=== PATIENT | male | born 1940 | race Caucasian/White ===

== ENCOUNTER 2016-11-09 13:08 | Outpatient (CLI) | payer MEDICARE, OTHER | END 2016-11-09 13:09 | disposition home or self-care (01) | DX: I48.0 Paroxysmal atrial fibrillation (principal) ==

== ENCOUNTER 2016-12-07 09:54 | Outpatient (CLI) | payer MEDICARE, OTHER | END 2016-12-07 09:55 | disposition home or self-care (01) | DX: I48.0 Paroxysmal atrial fibrillation (principal) ==

== ENCOUNTER 2017-01-05 12:34 | Outpatient (CLI) | payer MEDICARE, OTHER | END 2017-01-05 12:35 | disposition home or self-care (01) | DX: I48.0 Paroxysmal atrial fibrillation (principal) ==

== ENCOUNTER 2017-02-02 11:24 | Outpatient (CLI) | payer MEDICARE, OTHER | END 2017-02-02 11:25 | disposition home or self-care (01) | DX: I48.0 Paroxysmal atrial fibrillation (principal) ==

== ENCOUNTER 2017-02-16 12:38 | Outpatient (CLI) | payer MEDICARE, OTHER | END 2017-02-16 12:39 | disposition home or self-care (01) | DX: I48.0 Paroxysmal atrial fibrillation (principal) ==

== ENCOUNTER 2017-03-16 12:44 | Outpatient (CLI) | payer MEDICARE, OTHER | END 2017-03-16 12:45 | disposition home or self-care (01) | LOC: LAB.F 12:44 | PROVIDERS: ATTEND Internal Medicine | DX: I48.0 Paroxysmal atrial fibrillation (principal) | CPT/HCPCS: 85610 ==

== ENCOUNTER 2017-03-25 10:45 | Outpatient (CLI) | payer MEDICARE, OTHER | END 2017-03-25 10:46 | disposition home or self-care (01) | LOC: LAB.F 10:45 | PROVIDERS: ATTEND Internal Medicine | DX: I48.0 Paroxysmal atrial fibrillation (principal) | CPT/HCPCS: 85610 ==

== ENCOUNTER 2017-04-01 14:11 | Outpatient (CLI) | payer MEDICARE, OTHER | END 2017-04-01 14:12 | disposition home or self-care (01) | LOC: LAB.F 14:11 | PROVIDERS: ATTEND Internal Medicine | DX: I48.0 Paroxysmal atrial fibrillation (principal) | CPT/HCPCS: 85610 ==

== ENCOUNTER 2017-04-15 12:54 | Outpatient (CLI) | payer MEDICARE, OTHER | END 2017-04-15 12:55 | disposition home or self-care (01) | LOC: LAB.F 12:54 | PROVIDERS: ATTEND Internal Medicine | DX: I48.0 Paroxysmal atrial fibrillation (principal) | CPT/HCPCS: 85610 ==

== ENCOUNTER 2017-05-06 12:35 | Outpatient (CLI) | payer MEDICARE, OTHER | END 2017-05-06 12:36 | disposition home or self-care (01) | LOC: LAB.F 12:35 | PROVIDERS: ATTEND Internal Medicine | DX: I48.0 Paroxysmal atrial fibrillation (principal) | CPT/HCPCS: 85610 ==

== ENCOUNTER 2017-06-06 11:22 | Outpatient (CLI) | payer MEDICARE, OTHER | END 2017-06-06 11:23 | disposition home or self-care (01) | LOC: LAB.F 11:22 | PROVIDERS: ATTEND Internal Medicine | DX: I48.0 Paroxysmal atrial fibrillation (principal) | CPT/HCPCS: 85610 ==

== ENCOUNTER 2017-07-05 14:17 | Outpatient (CLI) | payer MEDICARE, OTHER | END 2017-07-05 14:18 | disposition home or self-care (01) | LOC: LAB.F 14:17 | PROVIDERS: ATTEND Internal Medicine | DX: I48.0 Paroxysmal atrial fibrillation (principal) | CPT/HCPCS: 85610 ==

== ENCOUNTER 2017-08-02 15:01 | Outpatient (CLI) | payer MEDICARE, OTHER | END 2017-08-02 15:02 | disposition home or self-care (01) | LOC: LAB.F 15:01 | PROVIDERS: ATTEND Internal Medicine | DX: I48.0 Paroxysmal atrial fibrillation (principal) | CPT/HCPCS: 85610 ==

== ENCOUNTER 2017-09-01 12:56 | Outpatient (CLI) | payer MEDICARE, OTHER | END 2017-09-01 12:57 | disposition home or self-care (01) | LOC: LAB.F 12:56 | PROVIDERS: ATTEND Internal Medicine | DX: I48.0 Paroxysmal atrial fibrillation (principal) | CPT/HCPCS: 85610 ==

== ENCOUNTER 2017-09-20 13:05 | Outpatient (CLI) | payer MEDICARE, OTHER ==
[2017-09-20 17:39] LABS: CALCIUM 9.5 mg/dL (8.5-10.3); CREATININE 1.3 mg/dL (0.6-1.2); POTASSIUM 4.5 mmol/L (3.5-5.0)
== END 2017-09-20 13:06 | disposition home or self-care (01) ==
LOC: LAB.F 13:05
PROVIDERS: ATTEND Internal Medicine Cardiovascular Disease
DX: I50.32 Chronic diastolic (congestive) heart failure (principal)
CPT/HCPCS: 36415; 80048

== ENCOUNTER 2017-10-05 14:08 | Outpatient (CLI) | payer MEDICARE, OTHER | END 2017-10-05 14:09 | disposition home or self-care (01) | LOC: LAB.F 14:08 | PROVIDERS: ATTEND Internal Medicine | DX: I48.0 Paroxysmal atrial fibrillation (principal) | CPT/HCPCS: 85610 ==

== ENCOUNTER 2017-11-09 12:53 | Outpatient (CLI) | payer MEDICARE, OTHER | END 2017-11-09 12:54 | disposition home or self-care (01) | LOC: LAB.F 12:53 | PROVIDERS: ATTEND Internal Medicine | DX: I48.0 Paroxysmal atrial fibrillation (principal) | CPT/HCPCS: 85610 ==

== ENCOUNTER 2017-12-13 15:44 | Outpatient (CLI) | payer MEDICARE, OTHER | END 2017-12-13 15:45 | disposition home or self-care (01) | LOC: LAB.F 15:44 | PROVIDERS: ATTEND Internal Medicine | DX: I48.0 Paroxysmal atrial fibrillation (principal) | CPT/HCPCS: 85610 ==

== ENCOUNTER 2018-01-23 10:00 | Outpatient (CLI) | payer MEDICARE, OTHER | END 2018-01-23 10:01 | disposition home or self-care (01) | LOC: LAB.F 10:00 | PROVIDERS: ATTEND Internal Medicine | DX: I48.0 Paroxysmal atrial fibrillation (principal) | CPT/HCPCS: 85610 ==

== ENCOUNTER 2018-03-06 13:47 | Outpatient (CLI) | payer MEDICARE, OTHER | END 2018-03-06 13:48 | disposition home or self-care (01) | LOC: LAB.F 13:47 | PROVIDERS: ATTEND Internal Medicine | DX: Z51.81 Encounter for therapeutic drug level monitoring (principal); Z79.01 Long term (current) use of anticoagulants | CPT/HCPCS: 85610 ==

== ENCOUNTER 2018-04-18 14:18 | Outpatient (CLI) | payer MEDICARE, OTHER | END 2018-04-18 14:19 | disposition home or self-care (01) | LOC: LAB.F 14:18 | PROVIDERS: ATTEND Internal Medicine | DX: Z51.81 Encounter for therapeutic drug level monitoring (principal); Z79.01 Long term (current) use of anticoagulants | CPT/HCPCS: 85610 ==

== ENCOUNTER 2018-05-10 13:50 | Outpatient (CLI) | payer MEDICARE, OTHER | END 2018-05-10 13:51 | disposition home or self-care (01) | LOC: LAB.F 13:50 | PROVIDERS: ATTEND Internal Medicine | DX: Z51.81 Encounter for therapeutic drug level monitoring (principal); Z79.01 Long term (current) use of anticoagulants | CPT/HCPCS: 85610 ==

== ENCOUNTER 2018-05-24 14:26 | Outpatient (CLI) | payer MEDICARE, OTHER | END 2018-05-24 14:27 | disposition home or self-care (01) | LOC: LAB.F 14:26 | PROVIDERS: ATTEND Internal Medicine | DX: Z51.81 Encounter for therapeutic drug level monitoring (principal); Z79.01 Long term (current) use of anticoagulants | CPT/HCPCS: 85610 ==

== ENCOUNTER 2018-06-14 13:57 | Outpatient (CLI) | payer MEDICARE, OTHER | END 2018-06-14 13:58 | disposition home or self-care (01) | LOC: LAB.F 13:57 | PROVIDERS: ATTEND Internal Medicine | DX: Z51.81 Encounter for therapeutic drug level monitoring (principal); Z79.01 Long term (current) use of anticoagulants | CPT/HCPCS: 85610 ==

== ENCOUNTER 2018-07-17 15:32 | Outpatient (CLI) | payer MEDICARE, OTHER | END 2018-07-17 15:33 | disposition home or self-care (01) | LOC: LAB.F 15:32 | PROVIDERS: ATTEND Internal Medicine | DX: Z51.81 Encounter for therapeutic drug level monitoring (principal); Z79.01 Long term (current) use of anticoagulants | CPT/HCPCS: 85610 ==

== ENCOUNTER 2018-08-01 13:47 | Outpatient (CLI) | payer MEDICARE, OTHER | END 2018-08-01 13:48 | disposition home or self-care (01) | LOC: LAB.F 13:47 | PROVIDERS: ATTEND Internal Medicine | DX: Z51.81 Encounter for therapeutic drug level monitoring (principal); Z79.01 Long term (current) use of anticoagulants | CPT/HCPCS: 85610 ==

== ENCOUNTER 2018-08-15 13:27 | Outpatient (CLI) | payer MEDICARE, OTHER | END 2018-08-15 13:28 | disposition home or self-care (01) | LOC: LAB.F 13:27 | PROVIDERS: ATTEND Internal Medicine | DX: Z51.81 Encounter for therapeutic drug level monitoring (principal); Z79.01 Long term (current) use of anticoagulants | CPT/HCPCS: 85610 ==

== ENCOUNTER 2018-09-14 13:26 | Outpatient (CLI) | payer MEDICARE, OTHER | END 2018-09-14 13:27 | disposition home or self-care (01) | LOC: LAB.F 13:26 | PROVIDERS: ATTEND Internal Medicine | DX: Z51.81 Encounter for therapeutic drug level monitoring (principal); Z79.01 Long term (current) use of anticoagulants | CPT/HCPCS: 85610 ==

== ENCOUNTER 2018-10-03 14:18 | Outpatient (CLI) | payer MEDICARE, OTHER | END 2018-10-03 14:19 | disposition home or self-care (01) | LOC: LAB.F 14:18 | PROVIDERS: ATTEND Internal Medicine | DX: Z51.81 Encounter for therapeutic drug level monitoring (principal); Z79.01 Long term (current) use of anticoagulants | CPT/HCPCS: 85610 ==

== ENCOUNTER 2018-10-31 08:00 | Outpatient (CLI) | payer MEDICARE, OTHER ==
[2018-10-31 17:34] LABS: BUN - BLOOD UREA NITROGEN 32 mg/dL (6-20); CARBON DIOXIDE - CO2 26 mmol/L (21-32); CHLORIDE 93 mmol/L (101-111); CREATININE 1.1 mg/dL (0.6-1.2); GFR - MDRD 64 (>89); GLUCOSE 144 mg/dL (70-100); SODIUM 132 mmol/L (135-145)
[2018-10-31 17:36] LABS: DIGOXIN < 0.2 ng/mL
== END 2018-10-31 23:59 | disposition home or self-care (01) ==
LOC: LAB.F 08:00
PROVIDERS: ATTEND Internal Medicine
DX: Z79.01 Long term (current) use of anticoagulants (principal); I50.32 Chronic diastolic (congestive) heart failure; Z51.81 Encounter for therapeutic drug level monitoring; I42.5 Other restrictive cardiomyopathy
CPT/HCPCS: 36415; 80048; 80162; 83880; 85610

== ENCOUNTER 2018-11-08 14:13 | Outpatient (CLI) | payer MEDICARE, OTHER | END 2018-11-08 14:14 | disposition home or self-care (01) | LOC: LAB.F 14:13 | PROVIDERS: ATTEND Internal Medicine | DX: Z51.81 Encounter for therapeutic drug level monitoring (principal); Z79.01 Long term (current) use of anticoagulants | CPT/HCPCS: 85610 ==

== ENCOUNTER 2018-11-15 15:04 | Outpatient (CLI) | payer MEDICARE, OTHER | END 2018-11-15 15:05 | disposition home or self-care (01) | LOC: LAB.F 15:04 | PROVIDERS: ATTEND Internal Medicine | DX: Z51.81 Encounter for therapeutic drug level monitoring (principal); Z79.01 Long term (current) use of anticoagulants | CPT/HCPCS: 85610 ==

== ENCOUNTER 2018-12-04 13:32 | Outpatient (CLI) | payer MEDICARE, OTHER | END 2018-12-04 13:33 | disposition home or self-care (01) | LOC: LAB.F 13:32 | PROVIDERS: ATTEND Internal Medicine | DX: Z51.81 Encounter for therapeutic drug level monitoring (principal); Z79.01 Long term (current) use of anticoagulants | CPT/HCPCS: 85610 ==

== ENCOUNTER 2018-12-27 14:05 | Outpatient (CLI) | payer MEDICARE, OTHER | END 2018-12-27 14:06 | disposition home or self-care (01) | LOC: LAB.F 14:05 | PROVIDERS: ATTEND Internal Medicine | DX: Z51.81 Encounter for therapeutic drug level monitoring (principal); Z79.01 Long term (current) use of anticoagulants | CPT/HCPCS: 85610 ==

== ENCOUNTER 2018-12-30 17:38 | Outpatient (CLI) | payer MEDICARE, OTHER | END 2018-12-30 17:39 | disposition EMS.NT | LOC: EMS 17:38 | PROVIDERS: ATTEND Surgery | DX: Z03.89 Encounter for observation for other suspected diseases and conditions ruled out (principal) ==

== ENCOUNTER 2019-01-17 15:13 | Outpatient (CLI) | payer MEDICARE, OTHER ==
[2019-01-17 18:25] LABS: PT - PROTHROMBIN TIME 53.6 secs (9.9-12.6)
[2019-01-17 19:41] LABS: INR 4.8 (0.8-1.2)
== END 2019-01-17 15:14 | disposition home or self-care (01) ==
LOC: LAB.F 15:13
PROVIDERS: ATTEND Internal Medicine
DX: Z51.81 Encounter for therapeutic drug level monitoring (principal); Z79.01 Long term (current) use of anticoagulants
CPT/HCPCS: 36415; 85610

== ENCOUNTER 2019-01-23 13:34 | Outpatient (CLI) | payer MEDICARE, OTHER ==
[2019-01-23 18:00] LABS: INR 2.2 (0.8-1.2); PT - PROTHROMBIN TIME 24.2 secs (9.9-12.6)
== END 2019-01-23 13:35 | disposition home or self-care (01) ==
LOC: LAB.F 13:34
PROVIDERS: ATTEND Internal Medicine
DX: Z51.81 Encounter for therapeutic drug level monitoring (principal); Z79.01 Long term (current) use of anticoagulants
CPT/HCPCS: 36415; 85610

== ENCOUNTER 2019-02-01 13:56 | Outpatient (CLI) | payer MEDICARE, OTHER | END 2019-02-01 13:57 | disposition home or self-care (01) | LOC: LAB.F 13:56 | PROVIDERS: ATTEND Internal Medicine | DX: Z51.81 Encounter for therapeutic drug level monitoring (principal); Z79.01 Long term (current) use of anticoagulants | CPT/HCPCS: 85610 ==

== ENCOUNTER 2019-02-08 14:14 | Outpatient (CLI) | payer MEDICARE, OTHER | END 2019-02-08 14:15 | disposition home or self-care (01) | LOC: LAB.F 14:14 | PROVIDERS: ATTEND Internal Medicine | DX: Z51.81 Encounter for therapeutic drug level monitoring (principal); Z79.01 Long term (current) use of anticoagulants | CPT/HCPCS: 85610 ==

== ENCOUNTER 2019-03-07 13:38 | Outpatient (CLI) | payer MEDICARE, OTHER ==
[2019-03-07 15:07] LABS: CALCIUM 9.6 mg/dL (8.5-10.3); CREATININE 1.1 mg/dL (0.6-1.2)
== END 2019-03-07 13:39 | disposition home or self-care (01) ==
LOC: LAB 13:38
PROVIDERS: ATTEND Internal Medicine Cardiovascular Disease
DX: I48.0 Paroxysmal atrial fibrillation (principal)
CPT/HCPCS: 36415; 80048; 93005

== ENCOUNTER 2019-03-15 14:37 | Outpatient (CLI) | payer MEDICARE, OTHER | END 2019-03-15 14:38 | disposition home or self-care (01) | LOC: LAB.F 14:37 | PROVIDERS: ATTEND Internal Medicine | DX: Z51.81 Encounter for therapeutic drug level monitoring (principal); Z79.01 Long term (current) use of anticoagulants | CPT/HCPCS: 85610 ==

== ENCOUNTER 2019-04-05 08:00 | Outpatient (CLI) | payer MEDICARE, OTHER | END 2019-04-05 23:59 | disposition home or self-care (01) | LOC: LAB.F 08:00 | PROVIDERS: ATTEND Internal Medicine | DX: Z51.81 Encounter for therapeutic drug level monitoring (principal); Z79.01 Long term (current) use of anticoagulants | CPT/HCPCS: 85610 ==

== ENCOUNTER 2019-04-30 13:38 | Outpatient (CLI) | payer MEDICARE, OTHER | END 2019-04-30 13:39 | disposition home or self-care (01) | LOC: LAB.S 13:38 | PROVIDERS: ATTEND Internal Medicine | DX: Z51.81 Encounter for therapeutic drug level monitoring (principal); Z79.01 Long term (current) use of anticoagulants | CPT/HCPCS: 85610 ==

== ENCOUNTER 2019-05-28 13:11 | Outpatient (CLI) | payer MEDICARE, OTHER | END 2019-05-28 13:12 | disposition home or self-care (01) | LOC: LAB.S 13:11 | PROVIDERS: ATTEND Internal Medicine | DX: Z51.81 Encounter for therapeutic drug level monitoring (principal); Z79.01 Long term (current) use of anticoagulants | CPT/HCPCS: 85610 ==

== ENCOUNTER 2019-06-25 08:00 | Outpatient (CLI) | payer MEDICARE, OTHER | END 2019-06-25 23:58 | disposition home or self-care (01) | LOC: LAB.S 08:00 | PROVIDERS: ATTEND Internal Medicine | DX: Z51.81 Encounter for therapeutic drug level monitoring (principal); Z79.01 Long term (current) use of anticoagulants | CPT/HCPCS: 85610 ==

== ENCOUNTER 2019-07-24 14:25 | Outpatient (CLI) | payer MEDICARE, OTHER | END 2019-07-24 14:26 | disposition home or self-care (01) | LOC: LAB.S 14:25 | PROVIDERS: ATTEND Internal Medicine | DX: Z51.81 Encounter for therapeutic drug level monitoring (principal); Z79.01 Long term (current) use of anticoagulants | CPT/HCPCS: 85610 ==

== ENCOUNTER 2019-08-13 13:29 | Outpatient (CLI) | payer MEDICARE, OTHER | END 2019-08-13 13:30 | disposition home or self-care (01) | LOC: LAB.S 13:29 | PROVIDERS: ATTEND Internal Medicine | DX: Z51.81 Encounter for therapeutic drug level monitoring (principal); Z79.01 Long term (current) use of anticoagulants | CPT/HCPCS: 85610 ==

== ENCOUNTER 2019-09-11 13:35 | Outpatient (CLI) | payer MEDICARE, OTHER | END 2019-09-11 13:36 | disposition home or self-care (01) | LOC: LAB.S 13:35 | PROVIDERS: ATTEND Internal Medicine | DX: Z51.81 Encounter for therapeutic drug level monitoring (principal); Z79.01 Long term (current) use of anticoagulants | CPT/HCPCS: 85610 ==

== ENCOUNTER 2019-10-15 14:11 | Outpatient (CLI) | payer MEDICARE, OTHER | END 2019-10-15 14:12 | disposition home or self-care (01) | LOC: LAB.S 14:11 | PROVIDERS: ATTEND Internal Medicine | DX: Z51.81 Encounter for therapeutic drug level monitoring (principal); Z79.01 Long term (current) use of anticoagulants | CPT/HCPCS: 85610 ==

== ENCOUNTER 2019-11-12 14:18 | Outpatient (CLI) | payer MEDICARE, OTHER | END 2019-11-12 14:19 | disposition home or self-care (01) | LOC: LAB.S 14:18 | PROVIDERS: ATTEND Internal Medicine | DX: Z51.81 Encounter for therapeutic drug level monitoring (principal); Z79.01 Long term (current) use of anticoagulants | CPT/HCPCS: 85610 ==

== ENCOUNTER 2019-11-14 08:00 | Outpatient (CLI) | payer MEDICARE, OTHER ==
[2019-11-14 20:40] LABS: BASOPHILS # (AUTO) 0.1 10^3/uL (0.0-0.1); BASOPHILS % (AUTO) 0.8 %; EOSINOPHILS # (AUTO) 0.1 10^3/uL (0.0-0.7); EOSINOPHILS % (AUTO) 1.1 %; HGB - HEMOGLOBIN 13.1 g/dL (14.0-18.0); LYMPHOCYTES # (AUTO) 0.7 10^3/uL (1.5-3.5); LYMPHOCYTES % (AUTO) 10.8 %; MEAN CORPUSCULAR HEMOGLOBIN 33.6 pg (27.0-31.0); MEAN CORPUSCULAR VOLUME 101.8 fL (80.0-94.0); MEAN PLATELET VOLUME 10.9 fL (7.4-11.4); MONOCYTES # (AUTO) 0.7 10^3/uL (0.0-1.0); MONOCYTES % (AUTO) 11.1 %; NEUTROPHILS # (AUTO) 4.9 10^3/uL (1.5-6.6); NEUTROPHILS % (AUTO) 72.9 %; PLT - PLATELET COUNT 155 10^3/uL (130-450); RED CELL DISTRIBUTION WIDTH 14.2 % (12.0-15.0); WHITE BLOOD COUNT 6.7 x10^3/uL (4.8-10.8)
[2019-11-14 20:56] LABS: BUN - BLOOD UREA NITROGEN 43 mg/dL (6-20); CALCIUM 8.8 mg/dL (8.5-10.3); CARBON DIOXIDE - CO2 27 mmol/L (21-32); CHLORIDE 95 mmol/L (101-111); CREATININE 1.4 mg/dL (0.6-1.2); GFR - MDRD 49 (>89); GLUCOSE 110 mg/dL (70-100); SODIUM 134 mmol/L (135-145)
[2019-11-14 21:15] LABS: CRP - C-REACTIVE PROTEIN < 1.0 mg/dL (0-1.0)
== END 2019-11-14 23:59 | disposition home or self-care (01) ==
LOC: LAB.R 08:00
DX: M86.9 Osteomyelitis, unspecified (principal)
CPT/HCPCS: 80048; 85025; 85651; 86140

== ENCOUNTER 2019-11-22 09:33 | Outpatient (CLI) | payer MEDICARE, OTHER | END 2019-11-22 09:34 | disposition short-term general hospital (02) | LOC: EMS 09:33 | PROVIDERS: ATTEND Surgery | DX: R25.3 Fasciculation (principal); R41.0 Disorientation, unspecified; R26.81 Unsteadiness on feet | CPT/HCPCS: A0425; A0427 ==

== ENCOUNTER 2019-11-28 08:00 | Outpatient (CLI) | payer MEDICARE, OTHER ==
[2019-11-29 16:18] LABS: BUN - BLOOD UREA NITROGEN 36 mg/dL (6-20); CARBON DIOXIDE - CO2 27 mmol/L (21-32); CHLORIDE 96 mmol/L (101-111); SODIUM 137 mmol/L (135-145)
[2019-11-29 16:19] LABS: CALCIUM 9.1 mg/dL (8.5-10.3); CREATININE 1.7 mg/dL (0.6-1.2); CRP - C-REACTIVE PROTEIN < 1.0 mg/dL (0-1.0); GFR - MDRD 39 (>89); GLUCOSE 178 mg/dL (70-100); HGB - HEMOGLOBIN 13.3 g/dL (14.0-18.0); WHITE BLOOD COUNT 7.5 x10^3/uL (4.8-10.8)
[2019-11-29 16:20] LABS: BASOPHILS % (AUTO) 0.1 %; EOSINOPHILS % (AUTO) 0.1 %; LYMPHOCYTES # (AUTO) 0.5 10^3/uL (1.5-3.5); LYMPHOCYTES % (AUTO) 7.2 %; MEAN CORPUSCULAR HEMOGLOBIN 32.4 pg (27.0-31.0); MEAN CORPUSCULAR HGB CONC 33.1 g/dL (32.0-36.0); MEAN PLATELET VOLUME 11.8 fL (7.4-11.4); MONOCYTES # (AUTO) 0.3 10^3/uL (0.0-1.0); MONOCYTES % (AUTO) 3.7 %; NEUTROPHILS # (AUTO) 6.6 10^3/uL (1.5-6.6); NEUTROPHILS % (AUTO) 87.6 %; PLT - PLATELET COUNT 184 10^3/uL (130-450)
== END 2019-11-28 23:59 | disposition home or self-care (01) ==
LOC: LAB.R 08:00
PROVIDERS: ATTEND Internal Medicine Infectious Disease
DX: M86.9 Osteomyelitis, unspecified (principal)
CPT/HCPCS: 80048; 85025; 85651; 86140

== ENCOUNTER 2019-12-05 08:00 | Outpatient (CLI) | payer MEDICARE, OTHER ==
[2019-12-05 21:25] LABS: BASOPHILS % (AUTO) 0.2 %; EOSINOPHILS % (AUTO) 0.5 %; HGB - HEMOGLOBIN 12.3 g/dL (14.0-18.0); LYMPHOCYTES # (AUTO) 0.3 10^3/uL (1.5-3.5); MEAN CORPUSCULAR HGB CONC 33.8 g/dL (32.0-36.0); MEAN CORPUSCULAR VOLUME 100.6 fL (80.0-94.0); MEAN PLATELET VOLUME 11.7 fL (7.4-11.4); MONOCYTES # (AUTO) 0.3 10^3/uL (0.0-1.0); MONOCYTES % (AUTO) 5.5 %; NEUTROPHILS % (AUTO) 86.6 %; PLT - PLATELET COUNT 132 10^3/uL (130-450); RED BLOOD COUNT 3.62 10^6/uL (4.70-6.10); RED CELL DISTRIBUTION WIDTH 13.2 % (12.0-15.0); WHITE BLOOD COUNT 5.8 x10^3/uL (4.8-10.8)
[2019-12-05 21:42] LABS: CALCIUM 8.9 mg/dL (8.5-10.3); CREATININE 1.5 mg/dL (0.6-1.2); CRP - C-REACTIVE PROTEIN 9.3 mg/dL (0-1.0)
== END 2019-12-05 23:59 | disposition home or self-care (01) ==
LOC: LAB.R 08:00
PROVIDERS: ATTEND Internal Medicine Infectious Disease
DX: M86.9 Osteomyelitis, unspecified (principal)
CPT/HCPCS: 80048; 85025; 85651; 86140

== ENCOUNTER 2020-01-04 13:53 | Outpatient (CLI) | payer MEDICARE, OTHER | END 2020-01-04 13:54 | disposition home or self-care (01) | LOC: LAB.S 13:53 | PROVIDERS: ATTEND Internal Medicine | DX: Z51.81 Encounter for therapeutic drug level monitoring (principal); Z79.01 Long term (current) use of anticoagulants | CPT/HCPCS: 85610 ==

== ENCOUNTER 2020-01-10 19:06 | Emergency (ER) | payer MEDICARE, OTHER ==
--- NOTE | 2020-01-10 19:40 | ED Physician Documentation ---
History of Present Illness - Stated complaint Stated Complaint: RT LEG PX/SWELLING/REDNESS - Chief complaint Chief Complaint: Ext Problem - History obtained from History obtained from: Patient (79-year-old gentleman comes in today with chief complaint of right lower extremity swelling, and anterior redness/bruising. He does not recall hitting his leg on anything. 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 He was then placed in a long-term care facility rehab after hospital discharge, started on Lovenox subcu twice daily and then bridged over to Coumadin p.o. He has been discharged out of the long-term care facility for approximately a week now. He denies any fevers chills nausea vomiting diarrhea headache cough.) Review of Systems Constitutional: reports: Reviewed and negative Eyes: reports: Reviewed and negative Ears: reports: Reviewed and negative Nose: reports: Reviewed and negative Throat: reports: Reviewed and negative Cardiac: denies: Chest pain / pressure, Palpitations Respiratory: denies: Dyspnea, Cough, Wheezing GI: reports: Reviewed and negative : reports: Reviewed and negative Skin: reports: Other (Ecchymosis to the anterior right lower extremity) Musculoskeletal: reports: Extremity swelling (Right lower extremity). denies: Extremity pain, Joint pain PD PAST MEDICAL HISTORY - Past Medical History Past Medical History: Yes Cardiovascular: Congestive heart failure, Hypertension, Atrial fibrillation, Other Respiratory: Pneumonia Neuro: None Endocrine/Autoimmune: None GI: GERD : Nocturia HEENT: Chronic hearing loss, Other Psych: None Musculoskeletal: Osteoarthritis, Gout Derm: None - Past Surgical History Past Surgical History: Yes Ortho: Knee replacement - Present Medications Home Medications: Ambulatory Orders Medication Instructions Recorded Confirmed Potassium Chloride 80 meq PO BID 05/03/14 01/10/20 Torsemide 200 mg PO DAILY 05/03/14 01/10/20 Digoxin 62.5 mg PO DAILY 07/12/16 01/10/20 Hydrocodone/Acetaminophen [Vicodin 5 mg PO Q8HR PRN 07/12/16 01/10/20 5-300 mg Tablet] Isosorbide Mononitrate ER [Imdur] 60 mg PO DAILY 07/12/16 01/10/20 Warfarin Sodium [Coumadin] 5 mg PO QDWARFARIN 07/12/16 Clindamycin HCl [Clindamycin 300MG 300 mg PO Q6H #28 capsule 01/10/20 CAP] Colchicine 0.6 mg PO DAILY 01/10/20 01/10/20 Loperamide [Imodium] 2 mg PO PRN PRN 01/10/20 01/10/20 Sotalol [Betapace] 40 mg PO BID 01/10/20 01/10/20 Torsemide 100 mg PO DAILY 01/10/20 01/10/20 hydrALAZINE [Apresoline] 25 mg PO BID 01/10/20 01/10/20 predniSONE [Prednisone] 5 mg PO DAILY 01/10/20 01/10/20 - Allergies Allergies/Adverse Reactions: Allergies Allergy/AdvReac Type Severity Reaction Status Date / Time Sulfa (Sulfonamide Allergy Intermediate Rash Verified 01/10/20 19:24 Antibiotics) cefepime AdvReac Unknown Verified 01/10/20 19:33 lisinopril AdvReac Unknown Verified 01/10/20 19:32 - Social History Does the pt smoke?: No Smoking Status: Never smoker Does the pt drink ETOH?: Yes Does the pt have substance abuse?: No - Immunizations Immunizations are current?: Yes - POLST Patient has POLST: No PD ED PE NORMAL - General General: Alert and oriented X 3, No acute distress, Well developed/nourished - HEENT HEENT: Atraumatic, PERRL, EOMI, Moist mucous membranes - Neck Neck: No adenopathy - Cardiac Cardiac: No: RRR (Irregularly irregular beat) - Respiratory Respiratory: No respiratory distress - Abdomen Abdomen: Soft, Non tender - Extremities Extremities: No deformity, No tenderness to palpate, No calf tenderness / cord. No: No edema PD ED PE EXPANDED - Cardiac Cardiac: Irregularly irregular - Extremities Extremities: Swelling (Right lower extremity), Bruising, Pedal Pulses Present. No: Right calf TTP/cord, Left calf TTP/cord Results - Vitals Vitals: Vital Signs - 24 hr 01/10/20 01/10/20 01/10/20 19:10 19:24 19:51 Temperature 36.5 C Heart Rate 147 H 75 112 H Respiratory 16 17 17 Rate Blood Pressure 107/80 116/80 O2 Saturation 95 95 97 Oxygen O2 Source Room air - Labs Labs: Laboratory Tests 03/01/10/20 01/10/20 19:44 19:44 19:44 WBC 8.7 RBC 3.61 L Hgb 11.8 L Hct 36.5 L MCV 101.1 H MCH 32.7 H MCHC 32.3 RDW 15.3 H Plt Count 248 MPV 10.2 Neut # (Auto) 7.1 H Lymph # (Auto) 0.[address] [place] # (Auto) 0.7 Eos # (Auto) 0.1 Baso # (Auto) 0.0 Absolute Nucleated RBC 0.00 Nucleated RBC % 0.0 PT 26.0 H INR 2.4 H Sodium 133 L Potassium 3.5 Chloride 87 L Carbon Dioxide 31 Anion Gap 15.0 H BUN 49 H Creatinine 1.4 H Estimated GFR (MDRD) 49 L Glucose 188 H Calcium 9.2 B-Natriuretic Peptide 01/10/20 19:44 WBC RBC Hgb Hct MCV MCH MCHC RDW Plt Count MPV Neut # (Auto) Lymph # (Auto) [place] # (Auto) Eos # (Auto) Baso # (Auto) Absolute Nucleated RBC Nucleated RBC % PT INR Sodium Potassium Chloride Carbon Dioxide Anion Gap BUN Creatinine Estimated GFR (MDRD) Glucose Calcium B-Natriuretic Peptide 187 H PD MEDICAL DECISION MAKING - ED course Complexity details: reviewed results, re-evaluated patient, d/w patient Departure - Departure Disposition: 01 Home, Self Care Clinical Impression: Cellulitis and abscess of right lower extremity Condition: Good Instructions: ED Infec Skin Cellulitis Prescriptions: Clindamycin HCl [Clindamycin 300MG CAP] 300 mg PO Q6H #28 capsule Comments: As I discussed with you in the ER today, you might have an early onset cellulitis with your right lower leg. Your white blood cell count does not show that you have any infection at this time, but this could still could be the case. You are on the Coumadin, and your INR was 2.4 today in the ER, and this could be the reason that you have bruising on the lower leg. I am sending you home with some antibiotics, I want you to wait a couple of days to see if the redness and swelling in your leg reduce. If you develop a fever, chills, or your right lower leg swelling & redness does not start to resolve or gets worse I want you to start taking the antibiotic. I also want you to follow-up with your PCP next week to have your lower leg reevaluated and to have your atrial fibrillation and coumadin reevaluated as well. Continue to take all other prescription medications as prescribed.
[2020-01-10 19:50] LABS: BASOPHILS % (AUTO) 0.2 %; EOSINOPHILS # (AUTO) 0.1 10^3/uL (0.0-0.7); EOSINOPHILS % (AUTO) 0.7 %; HGB - HEMOGLOBIN 11.8 g/dL (14.0-18.0); LYMPHOCYTES # (AUTO) 0.7 10^3/uL (1.5-3.5); LYMPHOCYTES % (AUTO) 8.5 %; MEAN CORPUSCULAR HEMOGLOBIN 32.7 pg (27.0-31.0); MEAN CORPUSCULAR HGB CONC 32.3 g/dL (32.0-36.0); MEAN CORPUSCULAR VOLUME 101.1 fL (80.0-94.0); MEAN PLATELET VOLUME 10.2 fL (7.4-11.4); MONOCYTES # (AUTO) 0.7 10^3/uL (0.0-1.0); MONOCYTES % (AUTO) 7.8 %; NEUTROPHILS # (AUTO) 7.1 10^3/uL (1.5-6.6); NEUTROPHILS % (AUTO) 81.7 %; PLT - PLATELET COUNT 248 10^3/uL (130-450); RED BLOOD COUNT 3.61 10^6/uL (4.70-6.10); RED CELL DISTRIBUTION WIDTH 15.3 % (12.0-15.0); WHITE BLOOD COUNT 8.7 x10^3/uL (4.8-10.8)
[2020-01-10 19:56] LABS: INR 2.4 (0.8-1.2)
[2020-01-10 19:58] LABS: CALCIUM 9.2 mg/dL (8.5-10.3); CREATININE 1.4 mg/dL (0.6-1.2)
[2020-01-10 20:31] VITALS: BP 105/69
== END 2020-01-10 20:38 | disposition home or self-care (01) ==
LOC: ED 19:06
DX: L02.415 Cutaneous abscess of right lower limb (principal); L03.115 Cellulitis of right lower limb; Z79.01 Long term (current) use of anticoagulants
CPT/HCPCS: 36415; 80048; 83880; 85025; 85610; 93005; 99284

== ENCOUNTER 2020-02-08 11:45 | Outpatient (CLI) | payer MEDICARE, OTHER ==
[2020-02-08 13:42] LABS: CALCIUM 9.6 mg/dL (8.5-10.3); CREATININE 1.4 mg/dL (0.6-1.2)
== END 2020-02-08 23:59 | disposition home or self-care (01) ==
LOC: LAB.R 11:45
PROVIDERS: ATTEND Student in an Organized Health Care Education/Training Program
DX: I13.0 Hypertensive heart and chronic kidney disease with heart failure and stage 1 through stage 4 chronic kidney disease, or unspecified chronic kidney disease (principal)
CPT/HCPCS: 80048

== ENCOUNTER 2020-02-08 14:56 | Emergency (ER) | payer MEDICARE, OTHER ==
[2020-02-08] MEDS ORDERED: POTASSIUM CHLORIDE 20 MEQ TABLET PO STA (15:03)
[2020-02-08] MEDS ORDERED: POTASSIUM CHLOR 10 MEQ/100 ML 10 MEQ/100 ML BAG IV STA (15:03)
--- NOTE | 2020-02-08 15:30 | ED Physician Documentation ---
History of Present Illness - Stated complaint Stated Complaint: ABNORMAL LABS - Chief complaint Chief Complaint: General - History obtained from History obtained from: Patient (79-year-old gentleman with history of heart failure and renal dysfunction presents because he had outpatient labs done today notable for a potassium of 2.5. Of note he was on Aldactone but it was stopped maybe a month ago. He is on a potassium supplement as well as on metolazone and torsemide as well.) Review of Systems Constitutional: reports: Fatigue. denies: Fever, Chills Cardiac: denies: Chest pain / pressure, Palpitations Respiratory: reports: Dyspnea. denies: Cough GI: denies: Abdominal Pain PD PAST MEDICAL HISTORY - Past Medical History Cardiovascular: Congestive heart failure, Hypertension, Atrial fibrillation, Other Respiratory: Pneumonia Neuro: None Endocrine/Autoimmune: None GI: GERD : Nocturia HEENT: Chronic hearing loss, Other Psych: None Musculoskeletal: Osteoarthritis, Gout Derm: None - Past Surgical History Past Surgical History: Yes Ortho: Knee replacement - Present Medications Home Medications: Ambulatory Orders Medication Instructions Recorded Confirmed Potassium Chloride 80 meq PO BID 05/03/14 01/10/20 Torsemide 200 mg PO DAILY 05/03/14 01/10/20 Digoxin 62.5 mg PO DAILY 07/12/16 01/10/20 Hydrocodone/Acetaminophen [Vicodin 5 mg PO Q8HR PRN 07/12/16 01/10/20 5-300 mg Tablet] Isosorbide Mononitrate ER [Imdur] 60 mg PO DAILY 07/12/16 01/10/20 Warfarin Sodium [Coumadin] 5 mg PO QDWARFARIN 07/12/16 Clindamycin HCl [Clindamycin 300MG 300 mg PO Q6H #28 capsule 01/10/20 CAP] Colchicine 0.6 mg PO DAILY 01/10/20 01/10/20 Loperamide [Imodium] 2 mg PO PRN PRN 01/10/20 01/10/20 Sotalol [Betapace] 40 mg PO BID 01/10/20 01/10/20 Torsemide 100 mg PO DAILY 01/10/20 01/10/20 hydrALAZINE [Apresoline] 25 mg PO BID 01/10/20 01/10/20 predniSONE [Prednisone] 5 mg PO DAILY 01/10/20 01/10/20 Spironolactone 25 mg PO DAILY #30 tablet 02/08/20 - Allergies Allergies/Adverse Reactions: Allergies Allergy/AdvReac Type Severity Reaction Status Date / Time Sulfa (Sulfonamide Allergy Intermediate Rash Verified 02/08/20 15:10 Antibiotics) cefepime AdvReac Unknown Verified 02/08/20 15:10 lisinopril AdvReac Unknown Verified 02/08/20 15:10 - Social History Does the pt smoke?: No Smoking Status: Never smoker Does the pt drink ETOH?: Yes Does the pt have substance abuse?: No - Immunizations Immunizations are current?: Yes - POLST Patient has POLST: No PD ED PE NORMAL - Vitals Vital signs reviewed: Yes - General General: Alert and oriented X 3, No acute distress - HEENT HEENT: PERRL, EOMI - Neck Neck: Supple, no meningeal sign, No bony TTP - Extremities Extremities: Other (He has swelling of the right leg which he says is chronic and unchanged compared to prior.) - Neuro Neuro: Alert and oriented X 3, Normal speech Results - Vitals Vitals: Vital Signs - 24 hr 02/08/20 02/08/20 02/08/20 15:02 16:16 16:29 Temperature 36.4 C L Heart Rate 64 103 H 98 Respiratory 20 20 16 Rate Blood Pressure 108/74 96/64 O2 Saturation 96 96 96 02/08/20 16:39 Temperature Heart Rate 100 Respiratory 18 Rate Blood Pressure 91/67 O2 Saturation 100 Oxygen O2 Source Room air - Labs Labs: Laboratory Tests 02/08/20 02/08/20 02/08/20 15:47 15:47 15:47 WBC 8.3 RBC 3.59 L Hgb 12.1 L Hct 35.4 L MCV 98.6 H MCH 33.7 H MCHC 34.2 RDW 15.4 H Plt Count 164 MPV 10.3 Neut # (Auto) 6.6 Lymph # (Auto) 0.9 L [place] # (Auto) 0.6 Eos # (Auto) 0.1 Baso # (Auto) 0.0 Absolute Nucleated RBC 0.00 Nucleated RBC % 0.0 Sodium 130 L Potassium 3.0 L Chloride 81 L Carbon Dioxide 34 H Anion Gap 15.0 H BUN 66 H Creatinine 1.4 H Estimated GFR (MDRD) 49 L Glucose 178 H Calcium 9.0 Magnesium 1.9 Total Bilirubin 1.3 H AST 24 ALT 20 Alkaline Phosphatase 68 B-Natriuretic Peptide 238 H Total Protein 6.7 Albumin 4.3 Globulin 2.4 Albumin/Globulin Ratio 1.8 Lipase 73 H PD MEDICAL DECISION MAKING - ED course ED course: 79-year-old gentleman presents to the emergency department today with hypokalemia noted on outpatient labs. It was probably because he had stopped his spironolactone about a month ago. 79-year-old gentleman presents with hypokalemia, likely from his diuretics. Of note he was on Spironolactone but was stopped recently. His potassium as an outpatient this morning was 2-1/2, on repeat here it is 3, he was given 10 mEq IV and 20 mg once orally. We will restart his Aldactone pending follow-up. Departure - Departure Disposition: 01 Home, Self Care Clinical Impression: Hypokalemia Condition: Good Record reviewed to determine appropriate education?: Yes Instructions: Hypokalemia Dc Prescriptions: Spironolactone 25 mg PO DAILY #30 tablet Comments: Recheck with your physician within the week, I recommend repeat labs sometime next week. Return for new or worsening symptoms.
[2020-02-08 15:56] LABS: BASOPHILS % (AUTO) 0.2 %; EOSINOPHILS # (AUTO) 0.1 10^3/uL (0.0-0.7); EOSINOPHILS % (AUTO) 0.7 %; HGB - HEMOGLOBIN 12.1 g/dL (14.0-18.0); LYMPHOCYTES # (AUTO) 0.9 10^3/uL (1.5-3.5); MEAN CORPUSCULAR HEMOGLOBIN 33.7 pg (27.0-31.0); MEAN CORPUSCULAR HGB CONC 34.2 g/dL (32.0-36.0); MEAN CORPUSCULAR VOLUME 98.6 fL (80.0-94.0); MEAN PLATELET VOLUME 10.3 fL (7.4-11.4); MONOCYTES # (AUTO) 0.6 10^3/uL (0.0-1.0); MONOCYTES % (AUTO) 7.3 %; NEUTROPHILS # (AUTO) 6.6 10^3/uL (1.5-6.6); PLT - PLATELET COUNT 164 10^3/uL (130-450); RED BLOOD COUNT 3.59 10^6/uL (4.70-6.10); RED CELL DISTRIBUTION WIDTH 15.4 % (12.0-15.0); WHITE BLOOD COUNT 8.3 x10^3/uL (4.8-10.8)
[2020-02-08 16:09] LABS: ALBUMIN 4.3 g/dL (3.2-5.5); ALBUMIN/GLOBULIN RATIO 1.8 (1.0-2.2); BILIRUBIN,TOTAL 1.3 mg/dL (0.2-1.0); CREATININE 1.4 mg/dL (0.6-1.2); MAGNESIUM 1.9 mg/dL (1.7-2.8); TOTAL PROTEIN 6.7 g/dL (6.7-8.2)
[2020-02-08] MEDS ORDERED: SPIRONOLACTONE 25 MG TABLET PO STA (16:11)
[2020-02-08 16:40] VITALS: BP 91/67
== END 2020-02-08 17:23 | disposition home or self-care (01) ==
LOC: ED 14:56
DX: E87.6 Hypokalemia (principal); I13.0 Hypertensive heart and chronic kidney disease with heart failure and stage 1 through stage 4 chronic kidney disease, or unspecified chronic kidney disease; Z79.899 Other long term (current) drug therapy
CPT/HCPCS: 36415; 80048; 80053; 83690; 83735; 83880; 85025; 96374; 99283; 99284; A9270

== ENCOUNTER 2020-03-17 14:54 | Outpatient (CLI) | payer MEDICARE, OTHER | END 2020-03-17 14:55 | disposition home or self-care (01) | LOC: RT 14:54 | PROVIDERS: ATTEND Internal Medicine Cardiovascular Disease | DX: I50.32 Chronic diastolic (congestive) heart failure (principal); I48.0 Paroxysmal atrial fibrillation; N18.3 Chronic kidney disease, stage 3 (moderate); E87.6 Hypokalemia | CPT/HCPCS: 93005 ==

== ENCOUNTER 2020-04-16 12:30 | Outpatient (CLI) | payer MEDICARE, OTHER | END 2020-04-16 23:59 | disposition home or self-care (01) | LOC: LAB.R 12:30 | PROVIDERS: ATTEND Internal Medicine Rheumatology | DX: M81.8 Other osteoporosis without current pathological fracture (principal); Z51.81 Encounter for therapeutic drug level monitoring; Z79.899 Other long term (current) drug therapy | CPT/HCPCS: 82306 ==

== ENCOUNTER 2020-04-30 15:43 | Outpatient (CLI) | payer MEDICARE, OTHER ==
[2020-04-30 16:50] LABS: PT - PROTHROMBIN TIME 48.7 secs (9.9-12.6)
[2020-04-30 16:59] LABS: INR 4.7 (0.8-1.2)
== END 2020-04-30 23:59 | disposition home or self-care (01) ==
LOC: LAB.R 15:43
PROVIDERS: ATTEND Student in an Organized Health Care Education/Training Program
DX: I48.0 Paroxysmal atrial fibrillation (principal); Z79.01 Long term (current) use of anticoagulants
CPT/HCPCS: 85610

== ENCOUNTER 2020-06-05 12:20 | Outpatient (CLI) | payer MEDICARE, OTHER ==
--- NOTE | 2020-06-05 19:23 | CONSULTATION NOTE ---
Palliative Care Follow Up - Referral Referring Provider: Dr. Patino Time of Visit: [id number] Referral setting: Home Referral Reason: Restrictive cardiomyopathy/Debility/Advanced Care Planning - Information Sources Records reviewed: Previous records reviewed History/Review of Systems obtained from: Patient, Family (, Angelia) Exam limitations: No limitations - History of Present Illness Update Brief HPI Update: This is an 79-year-old gentleman who was seen in follow-up today with his , Angelia present due to restrictive cardiomyopathy, functional decline and debility as well as advance care planning. The patient has had a significant functional decline since October 2019 when he developed osteomyelitis and acute kidney injury that resulted in hospitalization as well as amputation of his fifth fingers on the left and right hand. The patient himself sees that prior to this hospitalization he was functioning at approximately 75% due to his underlying osteoarthritis and pain and now presently is functioning at about 50%. He is downtrodden and that he is no longer able to do things that he was previously capable of. His now handles all of the affairs inside and outside of the home. There are times when he is able to assist with meals. Previously he handled much of the tasks such as cooking as well as all the home care and lawn maintenance. Now they are having to outsourced to have these tasks perform The patient has noticed improvement in his strength and balance after working with physical therapy with counter straining. He has also noticed improvement of his lower lower extremity edema. He reports that his weight has been the lowest that it has been in "quite some time." He last used metolazone been on Tuesday as his weight had crept up to 174 pounds and he did not wish it to go above. From his PCP he was given the go ahead to initiate duloxetine 20 mg daily that was recommended by the intervention no pain specialist at the [facility]. He is a longstanding history of chronic pain due to gout and osteoarthritis. He has not noticed a difference in his pain level since initiating the duloxetine but does report that his mood is more even. He is also started Diflucan neck topical gel to his bilateral hands twice daily and this has lessened his awakenings during the night due to pain and discomfort. The patient and his went on a long car ride to [address] for a family reunion on [place]. This was an extremely long track for the patient and he is still recovering from a fatigue standpoint. Pain is is seen today in the dining room with his present. He is alert and in no distress. PCP: Dr. Patino Pain Management: [facility] Rheumatology: Dr. Tamayo to assume July 2020 Cardiology: Dr. Najera Urology Patient has a past medical history of osteoarthritis of multiple joints. 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 Social History - Living Situation Living arrangement: At home Living Situation: With spouse/s.o. Support System: This is the patient's second marriage. He and his have been for 49 years. He has 3 children from his previous marriage. The patient and his , Angelia moved to [facility] in September 1988 into the patient's parents home. The patient's children all reside in [place]. 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 The patient enjoys painting in acrylic and water colors. He enjoys meal planni ng and cooking when he is able. They have 3 dogs in the home. Medications/Allergies - Medications Home Medications: Ambulatory Orders Medication Instructions Recorded Confirmed Potassium Chloride 40 meq PO BID 05/03/14 05/22/20 Torsemide 200 mg PO QPM 05/03/14 05/22/20 Hydrocodone/Acetaminophen [Vicodin 5 mg PO QID 07/12/16 05/22/20 5-300 mg Tablet] Isosorbide Mononitrate ER [Imdur] 60 mg PO DAILY 07/12/16 05/22/20 Warfarin Sodium [Coumadin] 2.5 mg PO .DAILYSUNTUWEDTHFRIS 07/12/16 05/22/20 Colchicine 0.6 mg PO DAILY 01/10/20 05/22/20 Loperamide [Imodium] 2 mg PO PRN PRN 01/10/20 05/22/20 Sotalol [Betapace] 40 mg PO BID 01/10/20 05/22/20 Torsemide 100 mg PO DAILY 01/10/20 05/22/20 predniSONE [Prednisone] 5 mg PO DAILY 01/10/20 05/22/20 Spironolactone 25 mg PO DAILY #30 tablet 02/08/20 05/22/20 Calcium Citrate 1,000 mg PO DAILY 05/22/20 05/22/20 Denosumab [Prolia] .[id number] 05/22/20 Digoxin 0.5 tab PO DAILY 05/22/20 05/22/20 Magnesium Oxide [Magnesium] 500 mg PO DAILY 05/22/20 05/22/20 Pantoprazole [Protonix] 40 mg PO DAILY 05/22/20 05/22/20 Promethazine [Phenergan] 25 mg PO .Q4-6H PRN 05/22/20 05/22/20 Tamsulosin HCl [Flomax] 0.4 mg PO DAILY 05/22/20 05/22/20 Vitamin D 2,000 unit PO DAILY 05/22/20 Warfarin Sodium 5 mg PO .DAILYMONDAY 05/22/20 05/22/20 metOLazone [Metolazone] MDD .Once if weight 174lb, 3tab/wk 05/22/20 polyethylene glycoL 3350 [Miralax] 17 g PO DAILY PRN 05/22/20 05/22/20 DULoxetine [Cymbalta] 20 mg PO DAILY 06/05/20 06/05/20 Diclofenac Sodium [Voltaren 1 applic TP BID PRN 06/05/20 06/05/20 Arthritis Pain] - Allergies Allergies/Adverse Reactions: Allergies Allergy/AdvReac Type Severity Reaction Status Date / Time Sulfa (Sulfonamide Allergy Intermediate Rash Verified 05/22/20 16:51 Antibiotics) cefepime AdvReac Unknown Verified 05/22/20 16:51 lisinopril AdvReac Unknown Verified 05/22/20 16:51 Review of Systems - Constitutional Constitutional: reports: Fatigue, Weight loss (loss of LE edema). denies: Fever - Eyes Eyes: reports: Corrective lenses - Ears, Nose & Throat Ears, Nose & Throat: denies: Dry mouth - Cardiovascular Cardiovascular: reports: Edema (improved). denies: Chest pain - Respiratory Respiratory: denies: Wheezing, SOB at rest - Gastrointestinal Gastrointestinal: reports: Good appetite. denies: Constipation, Diarrhea, Vomiting - Genitourinary Genitourinary: denies: Dysuria - Musculoskeletal Musculoskeletal: reports: Stiffness, Limited range of motion, Gout, Joint pain, Assistive devices - Integumentary Integumentary: reports: Dryness - Neurological Neurological: reports: General weakness. denies: Memory problems - Psychiatric Psychiatric: reports: Depression - All Other Systems All Other Systems: reports: Reviewed and negative Physical Exam - Vital Signs Temperature: 36.3 C Pulse Rate: 63 O2 Saturation: 97 (on RA at rest) Blood Pressure: 114/74 (left wrist cuff) - Physical Exam General Appearance: positive: No acute distress, Alert Eyes Bilateral: positive: Normal inspection ENT: positive: No signs of dehydration Neck: positive: No JVD, Trachea midline Cardiovascular: positive: Regular rate & rhythm, No murmur, Other (PMI is nondisplaced) Respiratory: positive: No respiratory distress, Rales (trace LLL). negative: Wheezes Abdomen: positive: Non-tender, Soft, Nml bowel sounds, Other (round, +umbilical hernia) Skin: positive: Dryness, Other (Venous stasis changes to BLL) Extremities: positive: Pedal edema (Trace BLE edema), Other (+DJD changes to b/l hands with noted tophi throughout DIP, PIP and MP joints; amupatition of left and right 5th fingers) Neurologic/Psychiatric: positive: Oriented x3, Flat affect, Other (ambulates with rollator) Palliative Care - POLST Patient has POLST: Yes POLST Status: DNR, Selective Treatment Pain: Pain unchanged (generalized pain due to OA and gout; comfortable on present pain regimen) Constipation: No, Managed Performance Status: PPS 50% - Palliative Care Discussion: The patient has had a significant functional decline since October 2019 with resulting osteomyelitis that resulted in hospitalization. During his prior admissions to the hospital he was able to bounce back. However, the patient finds that he is about at 50% of his functional status. He is becoming more open in regards to not seeing his ability to return to his prior functional state. He continues to work with the home health physical therapist in counterstrain therapy. Since initiating duloxetine which was prescribed primarily for his chronic pain syndrome due to osteoarthritis and gout he has noticed that his mood is more even and is optimistic that he will have further improvement. He is presently planning for a family reunion next May. He and his looked at a location out at [facility] which completely wore the patient out despite it being in the car. He is still coming to terms with his present physical capabilities and what his new stamina is. 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 Discussion was had today as the patient relies on his , Angelia as his sole caregiver if something were to happen to her. He is open that a plan would be in place for him to have support from 1 of his children financially where he may look into a small apartment with additional caregiving services. The patient's acknowledges that this is something that needs to be further discussed and addressed but recognizing that the ultimate plan would be for both of them to remain in their home with her overseeing the patient's care. However, they do not wish to be in a crisis that would result in scrambling for an alternative plan. They have met with the home health director of social services who [place] as to assist with tasks around the home for repairs that need to be completed. Requested the patient to reflect upon past events that he found challenging in his life and to note how he overcame them. The patient relayed how his parents relocated while he was in college at [employer] in [place] and he did not wish to relocate with them. He was determined to stay at that University and he was living out of his car for several weeks before he was able to and afford an apartment. 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 Also continue to encourage that he find apolinar in every day and this is reflective in his enjoyment with his paining. He reports that he gets out of bed every day so that he is able to paint. Impression and Recommendations - Palliative Care Impression: This is an 79-year-old man with multiple comorbidities including chronic pain due to OA and gout, atrial fibrillation, restrictive cardiomyopathy, diastolic congestive heart failure in the setting of functional decline. The patient is at his new baseline and is experiencing grief for the loss of his prior function. His a palliative care has assisted with exploring goals of care and a advance care planning. Recommendations/Counseling Done: 1. Depression. Patient has underlying grief and depression due to his chronic pain and loss of previous functional status. He is displaying grief in loss of his previous function. Assisted patient today and reflecting upon previous challenges and hurdles that he has had to overcome in his life and to utilize the strategies that he is previously called upon to move forward. He has noticed improvement since initiation of duloxetine of his mood. Advise may expect continued gradual improvement once he has been on the medication for approximately 3 to 4 weeks with understanding verbalized. Home health social work to continue to provide psychosocial support. Supportive listening provided. 2. Gout. Patient has a longstanding history of gout with recent reports of gout flares. Is on colchicine daily. Patient has had a discussion with his PCP and has elected not to proceed with our U Purinol. Recommend patient follow-up with new supervisor billposting as scheduled in July 2020 and further explore potential treatment options with a new supervisor billposting. 3. Functional decline. Multifactorial given underlying multiple comorbidities. Patient is presently optimized and his function from medical standpoint. Continue to work with home health physical therapy for strengthening and safety. Fall precautions. Continue use of Rollator for ambulation. 4. Advanced care planning. Patient has POLST as DN AR with selective treatment. Implored the patient and his spouse to explore future caregiving options to have multiple plans in place. Patient and spouse to discuss these potential caregiving options with their family as well as with each other. They have achieved additional resources for services [place] the [place] to have assistance within their home, caregiving services and home repair. The patient and his plan on contacting [facility] to have additional assistance. Patient's Angelia recognizes the patient's functional decline and wishes to have adequate plans in place if the patient were to continue to decline or if something medically were to happen to her so plan is in place for the patient's care. The patient and his would prefer not to have facility placement as a future option. As goals of care and assistance has been met from a palliative care standpoint reviewed with the patient and his spouse, Angelia today are in agreement to have palliative care on hold. They are aware to contact palliative care if there is a change in condition or symptoms or if they are in need of advanced care planning. Time Spent: Total time spent 50 minutes with greater than 50% of this spent in counseling and coordination of care, review of pain and symptom management and anticipatory guidance. Disclaimer: The chart note was formulated using voice recognition technology and unfortunately sound alike errors may occur. CC: Home Health
== END 2020-06-05 12:21 | disposition home or self-care (01) ==
LOC: PC 12:20
PROVIDERS: ATTEND Nurse Practitioner Family
DX: Z51.5 Encounter for palliative care (principal); I42.5 Other restrictive cardiomyopathy; F32.9 Major depressive disorder, single episode, unspecified; M19.90 Unspecified osteoarthritis, unspecified site; M10.9 Gout, unspecified; I48.0 Paroxysmal atrial fibrillation; I13.0 Hypertensive heart and chronic kidney disease with heart failure and stage 1 through stage 4 chronic kidney disease, or unspecified chronic kidney disease; N18.3 Chronic kidney disease, stage 3 (moderate); I50.30 Unspecified diastolic (congestive) heart failure; G89.4 Chronic pain syndrome; R53.1 Weakness; Z79.899 Other long term (current) drug therapy; Z79.01 Long term (current) use of anticoagulants; Z89.022 Acquired absence of left finger(s); Z89.021 Acquired absence of right finger(s); Z87.39 Personal history of other diseases of the musculoskeletal system and connective tissue; Z66 Do not resuscitate
CPT/HCPCS: 99349

== ENCOUNTER 2020-09-17 07:00 | Outpatient (CLI) | payer MEDICARE, OTHER ==
[2020-09-17 18:50] LABS: ALBUMIN 3.8 g/dL (3.2-5.5); CREATININE 1.3 mg/dL (0.6-1.2); PHOSPHORUS 3.2 mg/dL (2.5-4.6)
== END 2020-09-17 23:59 | disposition home or self-care (01) ==
LOC: LAB.R 07:00
PROVIDERS: ATTEND Student in an Organized Health Care Education/Training Program
DX: N18.31 Chronic kidney disease, stage 3a (principal)
CPT/HCPCS: 80069

== ENCOUNTER 2020-09-19 07:00 | Outpatient (CLI) | payer MEDICARE, OTHER ==
[2020-09-24 19:56] LABS: HEMOGLOBIN A1c% 7.2 % (4.27-6.07)
== END 2020-09-19 23:59 | disposition home or self-care (01) ==
LOC: LAB.R 07:00
PROVIDERS: ATTEND Student in an Organized Health Care Education/Training Program
DX: E11.65 Type 2 diabetes mellitus with hyperglycemia (principal)
CPT/HCPCS: 83036

== ENCOUNTER 2020-09-22 07:00 | Outpatient (CLI) | payer MEDICARE, OTHER ==
[2020-09-22 20:12] LABS: BASOPHILS # (AUTO) 0.1 10^3/uL (0.0-0.1); BASOPHILS % (AUTO) 0.9 %; EOSINOPHILS # (AUTO) 0.1 10^3/uL (0.0-0.7); EOSINOPHILS % (AUTO) 0.9 %; HGB - HEMOGLOBIN 12.1 g/dL (14.0-18.0); LYMPHOCYTES % (AUTO) 17.9 %; MEAN CORPUSCULAR HEMOGLOBIN 33.4 pg (27.0-31.0); MEAN CORPUSCULAR HGB CONC 31.4 g/dL (32.0-36.0); MEAN CORPUSCULAR VOLUME 106.4 fL (80.0-94.0); MEAN PLATELET VOLUME 10.6 fL (7.4-11.4); MONOCYTES # (AUTO) 0.4 10^3/uL (0.0-1.0); MONOCYTES % (AUTO) 7.3 %; NEUTROPHILS # (AUTO) 4.1 10^3/uL (1.5-6.6); NEUTROPHILS % (AUTO) 70.6 %; PLT - PLATELET COUNT 175 10^3/uL (130-450); RED BLOOD COUNT 3.62 10^6/uL (4.70-6.10); RED CELL DISTRIBUTION WIDTH 16.2 % (12.0-15.0); WHITE BLOOD COUNT 5.7 x10^3/uL (4.8-10.8)
[2020-09-22 20:19] LABS: ALBUMIN/GLOBULIN RATIO 1.5 (1.0-2.2); CALCIUM 9.1 mg/dL (8.5-10.3); CREATININE 1.2 mg/dL (0.6-1.2); TOTAL PROTEIN 6.6 g/dL (6.7-8.2); URIC ACID 7.4 mg/dL (2.6-7.2)
== END 2020-09-22 23:59 | disposition home or self-care (01) ==
LOC: LAB.R 07:00
PROVIDERS: ATTEND Student in an Organized Health Care Education/Training Program
DX: M1A.9XX1 Chronic gout, unspecified, with tophus (tophi) (principal)
CPT/HCPCS: 80053; 84550; 85025

== ENCOUNTER 2021-01-01 08:00 | Outpatient (CLI) | payer MEDICARE, OTHER ==
[2021-01-01 16:23] LABS: CALCIUM 8.8 mg/dL (8.5-10.3); CREATININE 1.5 mg/dL (0.6-1.2); POTASSIUM 4.1 mmol/L (3.5-5.0)
== END 2021-01-01 23:59 | disposition home or self-care (01) ==
LOC: LAB.S 08:00
PROVIDERS: ATTEND Student in an Organized Health Care Education/Training Program
DX: I13.0 Hypertensive heart and chronic kidney disease with heart failure and stage 1 through stage 4 chronic kidney disease, or unspecified chronic kidney disease (principal)
CPT/HCPCS: 36415; 80048

== ENCOUNTER 2021-01-12 15:33 | Outpatient (CLI) | payer MEDICARE, OTHER ==
--- OUTSIDE RECORDS SUMMARY | 2021-01-20 21:56 | EXTERNAL MEDICAL SUMMARY RPT | Continuity of Care Document ---
:1940 Demographics Phone Unavailable Preferred Language Unknown Marital Status Unknown Yazidism Affiliation Unknown Race Unknown Ethnic Group Unknown Author Organization [facility] Address [address] [place] [address] Phone Social History date description facility [phone]
== END 2021-01-12 15:34 | disposition critical access hospital (66) ==
LOC: EMS 15:33
PROVIDERS: ATTEND Emergency Medicine
DX: R44.3 Hallucinations, unspecified (principal)
CPT/HCPCS: A0425; A0429

== ENCOUNTER 2021-01-12 16:03 | Inpatient (IN) | payer MEDICARE, OTHER ==
[~2021-01-12 16:03] MED LIST: WARFARIN 5 MG TABLET PO SCH
--- NOTE | 2021-01-12 16:22 | ED Physician Documentation ---
PD HPI ALTERED MENTAL STATUS - Stated complaint Stated Complaint: HALLUCINATIONS - Chief complaint Chief Complaint: Neuro - History obtained from History obtained from: Patient - Additional information Additional information: 80-year-old gentleman with history of arthritis, cardiomyopathy presents by ambulance for "hallucinations." He states that recently he has been hearing voices only when he is in a sleep state. Does not hear any voices when he is fully awake. He had left olecranon bursitis surgery about a week ago in [place], was briefly on oxycodone perioperatively. Also has started Wellbutrin, but stopped that 2 days ago thinking that might be the cause of the voices here. No significant alcohol use. Per by phone, had similar episode after a finger amputation (for gout) last year and was hospitalized at [facility] for about 5 days, then SNF for 3 weeks. She said he has been very weak since the surgery, unable to get out of bed unassisted or use his walker. Review of Systems Ten Systems: 10 systems reviewed and negative Constitutional: reports: Reviewed and negative Eyes: reports: Reviewed and negative Ears: reports: Reviewed and negative Nose: reports: Reviewed and negative Throat: reports: Reviewed and negative Cardiac: reports: Reviewed and negative PD PAST MEDICAL HISTORY - Past Medical History Cardiovascular: Congestive heart failure, Hypertension, Coronary artery disease (mild), Atrial fibrillation (Paroxysmal; on coumadin), Other (restrictive cardiomyopathy; h/o pericarditis) Respiratory: Pneumonia, Sleep apnea, CPAP use Neuro: None Endocrine/Autoimmune: None GI: GERD : Nocturia, Other (CKD stage 3; h/o prostate cancer) HEENT: Chronic hearing loss, Other Psych: Depression Musculoskeletal: Osteoarthritis, Osteoporosis, Gout, Other (carpal tunnel) Derm: None - Past Surgical History Past Surgical History: Yes Ortho: Hip replacement (bilateral), Knee replacement (left x 2), Amputation (Left 5th finger 2019), Other (b/l ankle replacement; osteotomy tibia and fibula on right) /LEGAL WORD PROCESSOR: Other (Prostatectomy 2006) Cardiovascular: Cardiac catheterization HEENT: Cataracts Derm: Other (Mohs surgery) - Present Medications Home Medications: Ambulatory Orders Medication Instructions Recorded Confirmed Potassium Chloride 40 meq PO BID 05/03/14 05/22/20 Torsemide 200 mg PO QPM 05/03/14 05/22/20 Hydrocodone/Acetaminophen [Vicodin 5 mg PO QID 07/12/16 05/22/20 5-300 mg Tablet] Isosorbide Mononitrate ER [Imdur] 60 mg PO DAILY 07/12/16 05/22/20 Warfarin Sodium [Coumadin] 2.5 mg PO .DAILYSUNTUWEDTHFRIS 07/12/16 05/22/20 Colchicine 0.6 mg PO DAILY 01/10/20 05/22/20 Loperamide [Imodium] 2 mg PO PRN PRN 01/10/20 05/22/20 Sotalol [Betapace] 40 mg PO BID 01/10/20 05/22/20 Torsemide 100 mg PO DAILY 01/10/20 05/22/20 predniSONE [Prednisone] 5 mg PO DAILY 01/10/20 05/22/20 Spironolactone 25 mg PO DAILY #30 tablet 02/08/20 05/22/20 Calcium Citrate 1,000 mg PO DAILY 05/22/20 05/22/20 Denosumab [Prolia] .[id number] 05/22/20 Digoxin 0.5 tab PO DAILY 05/22/20 05/22/20 Magnesium Oxide [Magnesium] 500 mg PO DAILY 05/22/20 05/22/20 Pantoprazole [Protonix] 40 mg PO DAILY 05/22/20 05/22/20 Promethazine [Phenergan] 25 mg PO .Q4-6H PRN 05/22/20 05/22/20 Tamsulosin HCl [Flomax] 0.4 mg PO DAILY 05/22/20 05/22/20 Vitamin D 2,000 unit PO DAILY 05/22/20 Warfarin Sodium 5 mg PO .DAILYMONDAY 05/22/20 05/22/20 metOLazone [Metolazone] MDD .Once if weight 174lb, 3tab/wk 05/22/20 polyethylene glycoL 3350 [Miralax] 17 g PO DAILY PRN 05/22/20 05/22/20 DULoxetine [Cymbalta] 20 mg PO DAILY 06/05/20 06/05/20 Diclofenac Sodium [Voltaren 1 applic TP BID PRN 06/05/20 06/05/20 Arthritis Pain] - Allergies Allergies/Adverse Reactions: Allergies Allergy/AdvReac Type Severity Reaction Status Date / Time Sulfa (Sulfonamide Allergy Intermediate Rash Verified 01/12/21 16:15 Antibiotics) cefepime AdvReac Unknown Verified 01/12/21 16:15 lisinopril AdvReac Unknown Verified 01/12/21 16:15 - Social History Does the pt smoke?: No Smoking Status: Never smoker Does the pt drink ETOH?: Yes Does the pt have substance abuse?: No - Immunizations Immunizations are current?: Yes - POLST Patient has POLST: Yes PD ED PE NORMAL - Vitals Vital signs reviewed: Yes - General General: Alert and oriented X 3, No acute distress - HEENT HEENT: PERRL, EOMI, Other (bloodshot eyes, ?exopthalmos) - Neck Neck: Supple, no meningeal sign, No bony TTP - Cardiac Cardiac: RRR, No murmur - Respiratory Respiratory: No respiratory distress, Clear bilaterally - Abdomen Abdomen: Normal bowel sounds, Soft, Non tender - Back Back: No CVA TTP, No spinal TTP - Derm Derm: Normal color, Warm and dry - Extremities Extremities: No edema, No calf tenderness / cord, Other (L olecranon site C/D/I) - Neuro Neuro: Alert and oriented X 3, No motor deficit, No sensory deficit, Normal speech - Psych Psych: Normal mood, Normal affect Results - Vitals Vitals: Vital Signs - 24 hr 01/12/21 01/12/21 16:03 16:42 Temperature 36.5 C 36.5 C Heart Rate 110 H 110 H Respiratory 16 16 Rate Blood Pressure 108/84 H 108/84 H O2 Saturation 96 96 Oxygen O2 Source Room air - Labs Labs: Laboratory Tests 01/12/21 01/12/21 01/12/21 16:40 16:40 16:40 WBC 8.0 RBC 3.80 L Hgb 13.1 L Hct 38.7 L MCV 101.8 H MCH 34.5 H MCHC 33.9 RDW 15.6 H Plt Count 188 MPV 9.8 Neut # (Auto) 6.1 Lymph # (Auto) 0.8 L Schley # (Auto) 0.9 Eos # (Auto) 0.1 Baso # (Auto) 0.0 Absolute Nucleated RBC 0.00 Nucleated RBC % 0.0 PT 14.7 H INR 1.3 H Sodium 127 L Potassium 3.6 Chloride 82 L Carbon Dioxide 31 Anion Gap 14.0 H BUN 56 H Creatinine 1.5 H Estimated GFR (MDRD) 45 L Glucose 194 H Calcium 10.4 H Magnesium 1.7 Total Bilirubin 1.1 H AST 26 ALT 27 Alkaline Phosphatase 65 Total Protein 6.7 Albumin 3.8 Globulin 2.9 Albumin/Globulin Ratio 1.3 TSH Digoxin 0.3 01/12/21 16:40 WBC RBC Hgb Hct MCV MCH MCHC RDW Plt Count MPV Neut # (Auto) Lymph # (Auto) Schley # (Auto) Eos # (Auto) Baso # (Auto) Absolute Nucleated RBC Nucleated RBC % PT INR Sodium Potassium Chloride Carbon Dioxide Anion Gap BUN Creatinine Estimated GFR (MDRD) Glucose Calcium Magnesium Total Bilirubin AST ALT Alkaline Phosphatase Total Protein Albumin Globulin Albumin/Globulin Ratio TSH 1.77 Digoxin - Rads (name of study) Ct Head and CXR Radiology: EMP read contemporaneously PD MEDICAL DECISION MAKING - ED course ED course: 80 yo man presents by ambulance for hallucinosis, postoperative. Found to be newly hyponatremic. Pt very weak, unable to ambulate even with assistance here. Dr Perez will admit after we reviewed MCG criteria Departure - Departure Disposition: 66 [facility] DC/Xfer Clinical Impression: Hyponatremia, Hallucinations Condition: Fair
[2021-01-12 16:49] LABS: BASOPHILS % (AUTO) 0.4 %; EOSINOPHILS # (AUTO) 0.1 10^3/uL (0.0-0.7); EOSINOPHILS % (AUTO) 0.9 %; HCT - HEMATOCRIT 38.7 % (42.0-52.0); HGB - HEMOGLOBIN 13.1 g/dL (14.0-18.0); LYMPHOCYTES # (AUTO) 0.8 10^3/uL (1.5-3.5); LYMPHOCYTES % (AUTO) 10.3 %; MEAN CORPUSCULAR HEMOGLOBIN 34.5 pg (27.0-31.0); MEAN CORPUSCULAR HGB CONC 33.9 g/dL (32.0-36.0); MEAN CORPUSCULAR VOLUME 101.8 fL (80.0-94.0); MEAN PLATELET VOLUME 9.8 fL (7.4-11.4); MONOCYTES # (AUTO) 0.9 10^3/uL (0.0-1.0); MONOCYTES % (AUTO) 10.7 %; NEUTROPHILS # (AUTO) 6.1 10^3/uL (1.5-6.6); NEUTROPHILS % (AUTO) 75.6 %; PLT - PLATELET COUNT 188 10^3/uL (130-450); RED CELL DISTRIBUTION WIDTH 15.6 % (12.0-15.0)
[2021-01-12 16:54] LABS: INR 1.3 (0.8-1.2); PT - PROTHROMBIN TIME 14.7 secs (9.9-12.6)
--- NOTE | 2021-01-12 16:59 | CT Report ---
PROCEDURE: HEAD WO INDICATIONS: hallucinations TECHNIQUE: Noncontrast 4.5 mm thick angled axial sections acquired from the foramen magnum to the vertex. For r adiation dose reduction, the following was used: automated exposure control, adjustment of mA and/or kV according to patient size. COMPARISON: None. FINDINGS: Image quality: Motion artifact is noted. CSF spaces: Basal cisterns are patent. No extra-axial fluid collections. Ventricles are normal in size and shape. Brain: No midline shift. No intracranial masses or hemorrhage. Hurtado-white matter interface is norm al. Skull and face: Calvarium and visualized facial bones are intact, without suspicious lesions. Sinuses: Visualized sinuses and mastoids are clear. IMPRESSION: Unremarkable study for age, with note made of brain parenchymal volume loss and chronic small vessel ischemic change. No imaging explanation is found for the patient's presenting symptoms. Reviewed by: Jairo Fishman MD on 01/12/2021 3:57 PM JENNIFER Approved by: Jairo Fishman MD on 01/12/2021 3:57 PM JENNIFER Station ID: [id number]
[2021-01-12 17:02] LABS: ALBUMIN 3.8 g/dL (3.2-5.5); ALBUMIN/GLOBULIN RATIO 1.3 (1.0-2.2); ALKALINE PHOSPHATASE 65 IU/L (42-121); ALT ALANINE AMINOTRANSFERASE 27 IU/L (10-60); AST ASPARTATE AMINOTRANSFERASE 26 IU/L (10-42); BILIRUBIN,TOTAL 1.1 mg/dL (0.2-1.0); BUN - BLOOD UREA NITROGEN 56 mg/dL (6-20); CALCIUM 10.4 mg/dL (8.5-10.3); CARBON DIOXIDE - CO2 31 mmol/L (21-32); CHLORIDE 82 mmol/L (101-111); CREATININE 1.5 mg/dL (0.6-1.2); DIGOXIN 0.3 ng/mL; GFR - MDRD 45 (>89); GLUCOSE 194 mg/dL (70-100); MAGNESIUM 1.7 mg/dL (1.7-2.8); POTASSIUM 3.6 mmol/L (3.5-5.0); SODIUM 127 mmol/L (135-145); TOTAL PROTEIN 6.7 g/dL (6.7-8.2)
--- NOTE | 2021-01-12 17:13 | XRAY Report ---
PROCEDURE: Chest 1 View X-Ray INDICATIONS: altered TECHNIQUE: One view of the chest was acquired. COMPARISON: 04/03/2014 FINDINGS: Surgical changes and devices: None. Lungs and pleura: No pleural effusions or pneumothorax. Lungs demonstrate a small patches of strand y opacity at both lung bases and mild peribronchial thickening, chronic. Mediastinum: Mediastinal contours appear normal. Heart size is enlarged, stable. Bones and chest wall: No suspicious bony lesions. Overlying soft tissues appear unremarkable. IMPRESSION: 1. Prominence of the interstitial markings superimposed on chronic perihilar bronchial thickening sug gests possibly acute on chronic bronchitis or viral pneumonitis. 2.Chronic mild cardiomegaly. Reviewed by: Kaitlynn Damon MD on 01/12/2021 5:11 PM PDT Approved by: Kaitlynn Damon MD on 01/12/2021 5:11 PM PDT Station ID: [id number]
[2021-01-12 18:13] LABS: B. PARAPERTUSSIS- RESP PCR PAN NOT DETECTED; B. PERTUSSIS- RESP PCR PANEL NOT DETECTED; C. PNEUMONIAE- RESP PCR PANEL NOT DETECTED; CORONAVIRUS 229E-RESP PCR NOT DETECTED; CORONAVIRUS HKU1-RESP PCR NOT DETECTED; CORONAVIRUS NL63-RESP PCR NOT DETECTED; CORONAVIRUS OC43-RESP PCR NOT DETECTED; HUMAN METAPNEUMOVIRUS NOT DETECTED; INFLUENZA A- RESP PCR PANEL NOT DETECTED; INFLUENZA B - RESP PCR PANEL NOT DETECTED; M. PNEUMONIAE- RESP PCR PANEL NOT DETECTED; PARAINFLUENZA VIRUS 1 NOT DETECTED; PARAINFLUENZA VIRUS 2 NOT DETECTED; PARAINFLUENZA VIRUS 3 NOT DETECTED; PARAINFLUENZA VIRUS 4 NOT DETECTED; RHINOVIRUS/ENTEROVIRUS NOT DETECTED; RSV- RESP PCR PANEL NOT DETECTED; SARS-CoV-2 -RESP PCR PANEL NOT DETECTED
[2021-01-12] MEDS ORDERED: SODIUM CHLORIDE 0.9% 1,000 ML IV SCH (19:00)
[2021-01-12] MEDS ORDERED: ACETAMINOPHEN 325 MG TABLET PO PRN (19:40)
[2021-01-12] MEDS ORDERED: SODIUM CHLORIDE FLUSH 0.9% 10 ML SYRINGE IVP PRN (19:40)
--- NOTE | 2021-01-12 19:44 | HISTORY & PHYSICAL EXAMINATION ---
Chief Complaint - Chief Complaint Chief Complaint: Generalized weakness History of Present Illness - Admitted From Admitted From:: Home - History Obtained From Records Reviewed: Yes History obtained from: Patient, Daytime hospitalist, EMR - History of Present Illness HPI Comment/Other: This is a pleasant 80-year-old male with a past medical history significant for osteoarthritis, gout, restrictive cardiomyopathy, CKD stage III who presents today complaining of generalized weakness. He tells me that his is concerned that he has become progressively weak since he had surgery last week. He states his weakness has progressed over the last 3 years. He normally ambulates with a walker but will use a cane around the house. He had surgery 1 week ago at [facility] for left carpal tunnel syndrome as well as left olecranon bursitis. He states since that surgery, he has been even weaker than usual. He has been using a wheelchair to get around. He reports no focal deficits just generalized weakness. He denies any headache, change in vision. He reports chronic numbness in his lower extremities due to multiple surgical interventions for both of his ankles due to severe arthritis. He also reports that over the past few days, he has had very vivid dreams. He will wake up thinking they are real and will speak to his about them but she would not understand as he was just dreaming. He reports no auditory or visual hallucinations when he is awake. He was started on Wellbutrin a few weeks ago for depression but stopped this a couple of days ago. He was prescribed oxycodone postoperatively which she has been taking 4 times a day up until 2 days ago. These are 5 mg. He states he has been on hydrocodone in the past for multiple years due to chronic pain from his osteoarthritis but stopped this about a month ago. He reports no prior history of such vivid dreams or hallucinations. He does report he was quite weak after surgery last year for what appears to be gout and possible osteomyelitis. In the emergency department, he was found to be afebrile with a temperature of 36.5 C. His heart rate was in the 100s. Blood pressure is 108/84. He was not tachypneic and saturating well on room air. Labs were significant for sodium of 127. His INR was 1.3. Creatinine was 1.5. CT of the head was unremarkable. Given his hyponatremia and weakness, medicine was consulted for admission. I did discuss goals of care with the patient. We reviewed his POLST form which states that he is a DNR with limited interventions. He states that he would want CPR if he were to have an arrest while he is hospitalized. He would not want CPR if he were found down at home. If there was evidence of neurologic deficits then he would not want to be kept alive on mechanical ventilation. History - Past Medical History Cardiovascular: reports: Congestive heart failure, Hypertension, Atrial fibrillation, Other (Restrictive Cardiomyopathy.) Respiratory: reports: Pneumonia, Sleep apnea, CPAP use Neuro: reports: None Endocrine/Autoimmune: reports: None GI: reports: GERD : reports: Renal insuffiency, Other (History of prostate cancer) HEENT: reports: Chronic hearing loss Psych: reports: Depression Musculoskeletal: reports: Osteoarthritis, Osteoporosis, Gout Derm: reports: None MRSA Hx?: No - Past Surgical History Ortho: reports: Hip replacement (Bilateral.), Knee replacement (Left x2.), Amputation (Bilateral fifth digits.), Other (Bilateral ankle replacement.) /INDUSTRIAL HEALTH ENGINEER: reports: Other Cardiovascular: reports: Cardiac catheterization HEENT: reports: Cataracts Derm: reports: Other - Family & Social History Family History: Mother: , Father: Family History Comment/Other: He reports his father at 84 due to an automobile accident. Both of his older brothers in her late 60s. One from a myocardial infarction and the other had multiple strokes. Living arrangement: At home Living Situation: With spouse/s.o. Social History Notes: He lives at home with his , Angelia. He smoked 3 packs a day but quit in 1983. He rarely drinks alcohol. 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 - Substance History Use: Uses substance without health or social issues: NONE (Former tobacco use for 10 years, 3ppd) Meds/Allgy - Home Medications Home Medications: Ambulatory Orders Medication Instructions Recorded Confirmed Potassium Chloride 40 meq PO BID 05/03/14 05/22/20 Torsemide 200 mg PO QPM 05/03/14 05/22/20 Hydrocodone/Acetaminophen [Vicodin 5 mg PO QID 07/12/16 05/22/20 5-300 mg Tablet] Isosorbide Mononitrate ER [Imdur] 60 mg PO DAILY 07/12/16 05/22/20 Warfarin Sodium [Coumadin] 2.5 mg PO .DAILYSUNTUWEDTHFRIS 07/12/16 05/22/20 Colchicine 0.6 mg PO DAILY 01/10/20 05/22/20 Loperamide [Imodium] 2 mg PO PRN PRN 01/10/20 05/22/20 Sotalol [Betapace] 40 mg PO BID 01/10/20 05/22/20 Torsemide 100 mg PO DAILY 01/10/20 05/22/20 predniSONE [Prednisone] 5 mg PO DAILY 01/10/20 05/22/20 Spironolactone 25 mg PO DAILY #30 tablet 02/08/20 05/22/20 Calcium Citrate 1,000 mg PO DAILY 05/22/20 05/22/20 Denosumab [Prolia] .[id number] 05/22/20 Digoxin 0.5 tab PO DAILY 05/22/20 05/22/20 Magnesium Oxide [Magnesium] 500 mg PO DAILY 05/22/20 05/22/20 Pantoprazole [Protonix] 40 mg PO DAILY 05/22/20 05/22/20 Promethazine [Phenergan] 25 mg PO .Q4-6H PRN 05/22/20 05/22/20 Tamsulosin HCl [Flomax] 0.4 mg PO DAILY 05/22/20 05/22/20 Vitamin D 2,000 unit PO DAILY 05/22/20 Warfarin Sodium 5 mg PO .DAILYMONDAY 05/22/20 05/22/20 metOLazone [Metolazone] MDD .Once if weight 174lb, 3tab/wk 05/22/20 polyethylene glycoL 3350 [Miralax] 17 g PO DAILY PRN 05/22/20 05/22/20 DULoxetine [Cymbalta] 20 mg PO DAILY 06/05/20 06/05/20 Diclofenac Sodium [Voltaren 1 applic TP BID PRN 06/05/20 06/05/20 Arthritis Pain] - Allergies Allergies/Adverse Reactions: Allergies Allergy/AdvReac Type Severity Reaction Status Date / Time Sulfa (Sulfonamide Allergy Intermediate Rash Verified 01/12/21 16:15 Antibiotics) cefepime AdvReac Unknown Verified 01/12/21 16:15 lisinopril AdvReac Unknown Verified 01/12/21 16:15 Review of Systems - Constitutional Constitutional: reports: Weakness. denies: Fever, Chills, Poor appetite - Eyes Eyes: reports: Irritation. denies: Blurred vision, Vision loss - Cardiovascular Cariovascular: reports: Edema. denies: Chest pain, Exertional dyspnea, Decr. exercise tolerance - Respiratory Respiratory: denies: Cough, SOB at rest, SOB with exertion - Gastrointestinal Gastrointestinal: denies: Abdominal pain, Constipation, Diarrhea, Nausea - Genitourinary Genitourinary: denies: Dysuria, Frequency, Hematuria - Musculoskeletal Musculoskeletal: reports: Muscle weakness, Gout, Joint pain - Integumentary Integumentary: denies: Rash - Neurological Neurological: reports: General weakness, Headache, Numbness. denies: Focal weakness - Hematologic/Lymphatic Hematologic/Lymphatic: denies: Anemia, Bleeding tendencies - All Other Systems All Other Systems: reports: Reviewed and negative Prior Level of Functionality: Been declining from physical standpoint. He normally ambulates with a walker or cane when he is at home. Has used a wheelchair for the past week. Exam - Vital Signs Reviewed Vital Signs: Yes Vital Signs: Vital Signs x48h Temp Pulse Pulse Resp BP BP Pulse Ox 01/12/21 19:00 36.6 C 105 H 20 109/78 100 01/12/21 18:15 90 22 110/80 98 01/12/21 16:42 36.5 C 110 H 16 108/84 H 96 01/12/21 16:03 36.5 C 110 H 16 108/84 H 96 - Physical Exam General Appearance: positive: No acute distress, Alert Eyes Bilateral: positive: Other (Mild bilateral conjunctivits.) ENT: positive: Dry mucous membranes. negative: No signs of dehydration Neck: positive: Nml inspection Respiratory: positive: No respiratory distress. negative: Wheezes, Rales Cardiovascular: positive: Regular rate & rhythm. negative: Systolic murmur Abdomen: positive: Non-tender, No distention, Other (Umbilical hernia.). negative: Tenderness, Guarding, Rebound Skin: positive: Warm, Dry, Other (Incision over the medial aspect of the left elbow is clean and dry without erythema. Incision at the left wrist is also without erythema.) Extremities: positive: Pedal edema (+1 pitting edema in bilateral lower extremities.) Neurologic/Psychiatric: positive: Other (No focal motor deficits. He is able to move all 4 extremities.). negative: Disoriented to person, Disoriented to place, Disoriented to time, Slurred/abnml speech Conclusion/Plan - Problem List (1) Hyponatremia Conclusion/Plan: His sodium is decreased at 127 and his baseline is approximately 132. He does have +1 pitting edema but he also has dry oral mucosa. We will hold his home Lasix and spironolactone as this may be contributing to the hyponatremia. He does not appear to be in overt heart failure and his BNP is just above 100. We will gently hydrate him with normal saline and recheck a BMP this evening. (2) History of restrictive cardiomyopathy Conclusion/Plan: He has history of restrictive cardiomyopathy. We have no recent echocardiogram available. He does not appear to be in heart failure at this time given his near normal BNP and mild edema. We will hold his home Lasix and spironolactone given the hyponatremia we will gently hydrate him as mentioned above. We will check an echocardiogram. We will continue prednisone which he is on chronically (3) CKD (chronic kidney disease), stage III Conclusion/Plan: His renal function is currently at baseline with a creatinine of 1.5. We will monitor his renal function while he is hospitalized. (4) Paroxysmal atrial fibrillation Conclusion/Plan: He is rate controlled and in a sinus rhythm. We will continue sotalol and digoxin. His INR is subtherapeutic. We will continue Coumadin. (5) Physical deconditioning Conclusion/Plan: He is unfortunately declining from a physical standpoint due to his severe arthritis/gout. He has had a further acute decline due to recent surgical intervention. We will ask PT to evaluate the patient. He prefers to go home with physical therapy or other than a half-way facility but I told him that we will have him assessed first by physical therapy. (6) Vivid dream Conclusion/Plan: He has been having vivid dreams which I suspect is related to the Wellbutrin which she has since discontinued. The oxycodone may have also been contributing. We will continue to hold both of these. (7) Osteoarthritis Conclusion/Plan: He unfortunately has significant osteoarthritis with multiple joint involvement. We will continue with Tylenol as needed for pain control. We will hold the oxycodone given his recent vivid dreams. We will avoid NSAIDs given his CKD. - Lab Results Lab results reviewed: Yes Fish Bones: 01/12/21 16:40 01/12/21 22:22 - Diagnostic Imaging Results Diagnostic Imaging Results: positive: Final report reviewed Core Measures - Anticipated LOS I expect patient to be DC'd or transferred within 96 hours.: Yes - Issues Hospital Issues and Management Plan: 80-year-old male with a history of restrictive cardiomyopathy presents with generalized weakness found to be hyponatremic. We will admit for further work- up and treatment of the hyponatremia. We will gently hydrate him for the time being and hold his diuretics. - DVT/VTE - Prophylaxis VTE/DVT Device ordered at admit?: Yes VTE/DVT Prophylaxis med ordered at admit?: No Not Ordered - Medical Reason: Not indicated
[2021-01-12] MEDS ORDERED: WARFARIN SODIUM 3 MG PO SCH (20:15)
[2021-01-12] MEDS ORDERED: POTASSIUM CHLORIDE 10 MEQ CAPSULE PO SCH (21:00)
[2021-01-12] MEDS: TAMSULOSIN 0.4 MG CAPSULE PO SCH (21:25)
[2021-01-12] MEDS: SOTALOL 80 MG TABLET PO SCH (21:27)
[2021-01-12 22:41] LABS: CALCIUM 11.4 mg/dL (8.5-10.3); CREATININE 1.5 mg/dL (0.6-1.2); POTASSIUM 3.5 mmol/L (3.5-5.0)
[2021-01-12 23:25] LABS: MUDS CUTOFF CONCENTRATIONS CUTOFF CONC BELOW:
[2021-01-12 23:27] LABS: BILIRUBIN,URINE NEGATIVE (NEGATIVE); GLUCOSE, URINE (UA) NEGATIVE (NEGATIVE); KETONES,URINE (UA) NEGATIVE (NEGATIVE); LEUKOCYTE ESTERASE, URINE NEGATIVE (NEGATIVE); NITRITE,URINE NEGATIVE (NEGATIVE); OCCULT BLOOD,URINE NEGATIVE (NEGATIVE); PROTEIN,URINE NEGATIVE (NEGATIVE); UROBILINOGEN,URINE 0.2 (NORMAL) E.U./dL (NORMAL)
[2021-01-12 23:35] LABS: CLARITY,URINE CLEAR (CLEAR)
[2021-01-12 23:37] LABS: AMPHETAMINE SCREEN,URINE NEGATIVE (NEGATIVE); BARBITURATE SCREEN,UR NEGATIVE (NEGATIVE); BENZODIAZEPINES SCREEN, URINE NEGATIVE (NEGATIVE); COCAINE SCREEN URINE NEGATIVE (NEGATIVE); METHADONE SCREEN, URINE NEGATIVE (NEGATIVE); METHAMPHETAMINES SCREEN, URINE NEGATIVE (NEGATIVE); OPIATE SCREEN, URINE NEGATIVE (NEGATIVE); OXYCODONE SCREEN, URINE NEGATIVE (NEGATIVE); PROPOXYPHENE SCREEN, URINE NEGATIVE (NEGATIVE); THC CANNABINOID SCREEN, URINE NEGATIVE (NEGATIVE); TRICYCLIC ANTIDEPRESSANT,URINE NEGATIVE (NEGATIVE)
[2021-01-13] MEDS: SODIUM CHLORIDE FLUSH 0.9% 10 ML SYRINGE IVP SCH ×3 (01:00→19:41)
[2021-01-13 05:05] LABS: BASOPHILS % (AUTO) 0.5 %; EOSINOPHILS # (AUTO) 0.1 10^3/uL (0.0-0.7); HCT - HEMATOCRIT 39.7 % (42.0-52.0); HGB - HEMOGLOBIN 13.3 g/dL (14.0-18.0); LYMPHOCYTES # (AUTO) 0.9 10^3/uL (1.5-3.5); LYMPHOCYTES % (AUTO) 11.4 %; MEAN CORPUSCULAR HEMOGLOBIN 33.8 pg (27.0-31.0); MEAN CORPUSCULAR HGB CONC 33.5 g/dL (32.0-36.0); MEAN CORPUSCULAR VOLUME 100.8 fL (80.0-94.0); MEAN PLATELET VOLUME 10.2 fL (7.4-11.4); MONOCYTES # (AUTO) 0.9 10^3/uL (0.0-1.0); MONOCYTES % (AUTO) 11.7 %; NEUTROPHILS # (AUTO) 5.7 10^3/uL (1.5-6.6); NEUTROPHILS % (AUTO) 73.1 %; PLT - PLATELET COUNT 198 10^3/uL (130-450); RED BLOOD COUNT 3.94 10^6/uL (4.70-6.10); RED CELL DISTRIBUTION WIDTH 15.6 % (12.0-15.0); WHITE BLOOD COUNT 7.8 x10^3/uL (4.8-10.8)
[2021-01-13 05:14] LABS: CALCIUM 10.3 mg/dL (8.5-10.3); CREATININE 1.5 mg/dL (0.6-1.2); MAGNESIUM 1.8 mg/dL (1.7-2.8); POTASSIUM 3.8 mmol/L (3.5-5.0)
[2021-01-13] MEDS: PANTOPRAZOLE 40 MG TABLET PO SCH (08:51)
[2021-01-13] MEDS: DULoxetine 20 MG CAPSULE PO SCH (08:51)
[2021-01-13] MEDS: CHOLECALCIFEROL 25 MCG TABLET PO SCH (08:51)
[2021-01-13] MEDS: predniSONE 5 MG TABLET PO SCH (08:51)
[2021-01-13] MEDS: SOTALOL 80 MG TABLET PO SCH ×2 (08:52→21:17)
[2021-01-13] MEDS ORDERED: DIGOXIN 125 MCG TABLET PO SCH (09:00)
[2021-01-13] MEDS ORDERED: SODIUM CHLORIDE 0.9% 1,000 ML IV SCH (09:00)
[2021-01-13] MEDS ORDERED: VITAMIN D 2000 UNIT PO SCH (09:00)
[2021-01-13] MEDS ORDERED: SPIRONOLACTONE 25 MG TABLET PO SCH (09:00)
[2021-01-13] MEDS ORDERED: ISOSORBIDE MONONITRATE ER 30 MG TABLET PO SCH (09:00)
[2021-01-13] MEDS ORDERED: DIGOXIN 125 MCG TABLET PO ONE (11:00)
[2021-01-13] MEDS ORDERED: DIGOXIN 125 MCG TABLET PO STA (11:37)
--- NOTE | 2021-01-13 12:54 | PHARMACY PROGRESS NOTE ---
- Best Possible Medication History Admit Date and Time: 01/12/21 1805 Processed by: Pharmacy Medication History completed: Yes Patient Interview: Completed Secondary Source(s): Physician records, Pharmacy records, Insurance records Spoke to sales enablement specialist office and anticoagulation clinic to confirm doses. Anticoag clinic is actively adjusting patient's warfarin. As the person ultimately responsible for medication therapy, providers are able to order a medication from an existing home medication list in [facility] via the "Reconcile Routine" prior to Confirmation of that medication by help desk support specialist. Such practice is discouraged except when the physician, in their clinical judgment, deems that a medical need exists for a medication without regard to previous use.
[2021-01-13] MEDS ORDERED: WARFARIN 2.5 MG TABLET PO SCH (14:00)
--- NOTE | 2021-01-13 14:00 | PROVIDER PROGRESS NOTE ---
Assessment/Plan - Problem List (1) Hyponatremia Assessment/Plan: pt's Sodium is 130, and his baseline is approximately 132, Improved. We will continue hold his home diuretics and spironolactone. Patient also has orthostatic hypotension, we will try to give very gently intravenous IV fluids. 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 We will hold patient blood pressure Medications except Sotalol, order pt for gently intravenous IV fluids, Fall precautions. Patient's echo study is pending. (3)generalized weakness Patient Also present generalized weakness, multiple factors could contribute, Including orthostatic hypotension, hyponatremia, history of cardiomyopathy. We will consult with PT and OT, And treat underlying facts. (4) History of restrictive cardiomyopathy Conclusion/Plan: Echo study is pending. pt has history of restrictive cardiomyopathy. We have no recent echocardiogram for pt. agree patient does not appear to be in heart failure at this time given his near normal BNP and mild edema. We will hold his home Lasix and spironolactone given the hyponatremia we will gently hydrate him (5) CKD (chronic kidney disease), stage III Conclusion/Plan: His renal function is currently at baseline with a creatinine of 1.5. continue monitor his renal function while he is hospitalized. (6) Paroxysmal atrial fibrillation Conclusion/Plan: pt has slight elevated HR and pt had afib now with hx of paroxysmal afib, continue sotalol and digoxin. His INR is subtherapeutic. continue Coumadin. continue PT/INR check (7) Physical deconditioning Conclusion/Plan: agree pt has physical deconditioning condition now. pt is unfortunately declining from a physical standpoint due to his severe arthritis/gout. He has had a further acute decline due to recent surgical intervention. pt is consulted with PT/OT today. pt prefers to go home with physical therapy or other than a [facility] facility as needed (8) Vivid dream Conclusion/Plan: pt is alert and oriented on today. He has been having vivid dreams which I suspect is related to the Wellbutrin which she has since discontinued. The oxycodone may have also been contributing. We will continue to hold both of these. (9) Osteoarthritis Conclusion/Plan: continue Tylenol on today. pt unfortunately has significant osteoarthritis with multiple joint involvement. We will continue with Tylenol as needed for pain control. We will hold the oxycodone given his recent vivid dreams. We will avoid NSAIDs given his CKD. - Current Meds Current Meds: Current Medications Generic Name Dose Route Start Last Admin Trade Name Anand PRN Reason Stop Dose Admin Cholecalciferol 50 mcg 01/13/21 09:00 01/13/21 08:51 Cholecalciferol 25 Mcg Tablet PO 50 mcg DAILY BIN Administration Duloxetine HCl 20 mg 01/13/21 09:00 01/13/21 08:51 Duloxetine 20 Mg Capsule PO 20 mg DAILY BIN Administration Sodium Chloride 1,000 mls @ 75 mls/hr 01/13/21 09:00 01/13/21 08:59 Normal Saline 0.9% IV 01/13/21 22:19 75 mls/hr .[id number] BIN Administration Pantoprazole Sodium 40 mg 01/13/21 09:00 01/13/21 08:51 Pantoprazole 40 Mg Tablet PO 40 mg DAILY BIN Administration Prednisone 5 mg 01/13/21 09:00 01/13/21 08:51 Prednisone 5 Mg Tablet PO 5 mg DAILY BIN Administration Sodium Chloride 10 ml 01/13/21 01:00 01/13/21 08:52 Sodium Chloride Flush 0.9% 10 Ml Syringe IVP 10 ml 0100,0900,1700 BIN Administration Sotalol HCl 40 mg 01/12/21 21:00 01/13/21 08:52 Sotalol 80 Mg Tablet PO 40 mg BID BIN Administration Tamsulosin HCl 0.4 mg 01/12/21 21:00 01/12/21 21:25 Tamsulosin 0.4 Mg Capsule PO 0.4 mg HS BIN Administration - Lab Result Fish Bone Diagrams: 01/13/21 04:49 01/13/21 04:49 - Additional Planning My Orders: My Active Orders 01/13/21 09:00 Sodium Chloride 0.9% [Normal Saline 0.9%] 1,000 ml IV 75 mls/hr 01/13/21 10:31 Telemetry- [RC] Q4HR 01/13/21 11:36 Orthostatic [Vital Signs - Orthostatic] [RC] DAILY 01/13/21 14:00 SODIUM [CHEM] Timed 01/14/21 09:00 Digoxin [Lanoxin] 62.5 mcg PO DAILY Subjective - Subjective Patient Reports: Resting Comfortably Objective Vital Signs: Vital Signs - 24 hr 01/12/21 01/12/21 01/12/21 16:03 16:42 18:15 Temperature 36.5 C 36.5 C Heart Rate 110 H 110 H 90 Heart Rate [ Activity] Heart Rate [ Brachial] Heart Rate [ Supine] Respiratory 16 16 22 Rate Blood Pressure 108/84 H 108/84 H 110/80 Blood Pressure [Activity] Blood Pressure [Right Brachial artery] Blood Pressure [Sitting] Blood Pressure [Supine] O2 Saturation 96 96 98 O2 Saturation [ Activity] O2 Saturation [ Supine] 01/12/21 01/12/21 01/13/21 19:00 21:27 01:09 Temperature 36.6 C 36.6 C Heart Rate Heart Rate [ Activity] Heart Rate [ 105 H 109 H 101 H Brachial] Heart Rate [ Supine] Respiratory 20 16 Rate Blood Pressure Blood Pressure [Activity] Blood Pressure 109/78 104/74 102/61 [Right Brachial artery] Blood Pressure [Sitting] Blood Pressure [Supine] O2 Saturation 100 93 O2 Saturation [ Activity] O2 Saturation [ Supine] 01/13/21 01/13/21 01/13/21 08:47 10:12 11:00 Temperature 36.8 C Heart Rate Heart Rate [ 125 H Activity] Heart Rate [ 115 H 110 H Brachial] Heart Rate [ 120 H Supine] Respiratory 18 Rate Blood Pressure Blood Pressure 88/71 L [Activity] Blood Pressure 107/64 109/84 H [Right Brachial artery] Blood Pressure 95/89 H [Sitting] Blood Pressure 104/63 [Supine] O2 Saturation 94 O2 Saturation [ Activity] O2 Saturation [ Supine] 01/13/21 11:02 Temperature Heart Rate Heart Rate [ 125 H Activity] Heart Rate [ Brachial] Heart Rate [ 120 H Supine] Respiratory Rate Blood Pressure Blood Pressure 88/71 L [Activity] Blood Pressure [Right Brachial artery] Blood Pressure 95/89 H [Sitting] Blood Pressure 104/63 [Supine] O2 Saturation O2 Saturation [ 95 Activity] O2 Saturation [ 94 Supine] Oxygen O2 Source Room air I&O (Last 24 Hrs): Intake and Output Totals x24h 01/11/21 01/12/21 01/13/21 23:59 23:59 23:59 Intake Total 418 395 Balance 418 395 General: Alert, Cooperative, No acute distress HEENT: Atraumatic Neck: Supple Lymphatic: no adenopathy Neuro: Alert, Non Focal, Oriented Times 3 Cardiovascular: Regular rate, Normal S1, Normal S2 Respiratory: Chest non-tender, No respiratory distress Abdomen: Normal bowel sounds, Soft Extremities: Normal pulses - Results Results: Laboratory Results WBC 7.8 x10^3/uL (4.8-10.8) 01/13/21 04:49 RBC 3.94 10^6/uL (4.70-6.10) L 01/13/21 04:49 Hgb 13.3 g/dL (14.0-18.0) L 01/13/21 04:49 Hct 39.7 % (42.0-52.0) L 01/13/21 04:49 MCV 100.8 fL (80.0-94.0) H 01/13/21 04:49 MCH 33.8 pg (27.0-31.0) H 01/13/21 04:49 MCHC 33.5 g/dL (32.0-36.0) 01/13/21 04:49 RDW 15.6 % (12.0-15.0) H 01/13/21 04:49 Plt Count 198 10^3/uL (130-450) 01/13/21 04:49 MPV 10.2 fL (7.4-11.4) 01/13/21 04:49 Neut # (Auto) 5.7 10^3/uL (1.5-6.6) 01/13/21 04:49 Lymph # (Auto) 0.9 10^3/uL (1.5-3.5) L 01/13/21 04:49 [place] # (Auto) 0.9 10^3/uL (0.0-1.0) 01/13/21 04:49 Eos # (Auto) 0.1 10^3/uL (0.0-0.7) 01/13/21 04:49 Baso # (Auto) 0.0 10^3/uL (0.0-0.1) 01/13/21 04:49 Absolute Nucleated RBC 0.00 x10^3/uL 01/13/21 04:49 Nucleated RBC % 0.0 /100WBC 01/13/21 04:49 PT 14.7 secs (9.9-12.6) H 01/12/21 16:40 INR 1.3 (0.8-1.2) H 01/12/21 16:40 Sodium 130 mmol/L (135-145) L 01/13/21 04:49 Potassium 3.8 mmol/L (3.5-5.0) 01/13/21 04:49 Chloride 84 mmol/L (101-111) L 01/13/21 04:49 Carbon Dioxide 31 mmol/L (21-32) 01/13/21 04:49 Anion Gap 15.0 (6-13) H 01/13/21 04:49 BUN 60 mg/dL (6-20) H 01/13/21 04:49 Creatinine 1.5 mg/dL (0.6-1.2) H 01/13/21 04:49 Estimated GFR (MDRD) 45 (>89) L 01/13/21 04:49 Glucose 134 mg/dL (70-100) H 01/13/21 04:49 Calcium 10.3 mg/dL (8.5-10.3) 01/13/21 04:49 Magnesium 1.8 mg/dL (1.7-2.8) 01/13/21 04:49 Total Bilirubin 1.1 mg/dL (0.2-1.0) H 01/12/21 16:40 AST 26 IU/L (10-42) 01/12/21 16:40 ALT 27 IU/L (10-60) 01/12/21 16:40 Alkaline Phosphatase 65 IU/L (42-121) 01/12/21 16:40 B-Natriuretic Peptide 128 pg/mL (5-100) H 01/12/21 16:40 Total Protein 6.7 g/dL (6.7-8.2) 01/12/21 16:40 Albumin 3.8 g/dL (3.2-5.5) 01/12/21 16:40 Globulin 2.9 g/dL (2.1-4.2) 01/12/21 16:40 Albumin/Globulin Ratio 1.3 (1.0-2.2) 01/12/21 16:40 TSH 1.77 uIU/mL (0.34-5.60) 01/12/21 16:40 Urine Color YELLOW 01/12/21 23:09 Urine Clarity CLEAR (CLEAR) 01/12/21 23:09 Urine pH 7.0 PH (5.0-7.5) 01/12/21 23:09 Ur Specific [place] 1.010 (1.002-1.030) 01/12/21 23:09 Urine Protein NEGATIVE mg/dL (NEGATIVE) 01/12/21 23:09 Urine Glucose (UA) NEGATIVE mg/dL (NEGATIVE) 01/12/21 23:09 Urine Ketones NEGATIVE mg/dL (NEGATIVE) 01/12/21 23:09 Urine Occult Blood NEGATIVE (NEGATIVE) 01/12/21 23:09 Urine Nitrite NEGATIVE (NEGATIVE) 01/12/21 23:09 Urine Bilirubin NEGATIVE (NEGATIVE) 01/12/21 23:09 Urine Urobilinogen 0.2 (NORMAL) E.U./dL (NORMAL) 01/12/21 23:09 Ur Leukocyte Esterase NEGATIVE (NEGATIVE) 01/12/21 23:09 Ur Microscopic Review NOT INDICATED 01/12/21 23:09 Urine Culture Comments NOT INDICATED 01/12/21 23:09 Ur Random Chloride 68 mmol/L 01/12/21 23:09 Urine Sodium 58.0 mmol/L 01/12/21 23:09 Nasal Adenovirus (PCR) NOT DETECTED 01/12/21 17:15 Nasal B. parapertussis DNA (PCR) NOT DETECTED 01/12/21 17:15 Nasal Coronavir 229E PCR NOT DETECTED 01/12/21 17:15 Nasal Coronavir HKU1 PCR NOT DETECTED 01/12/21 17:15 Nasal Coronavir NL63 PCR NOT DETECTED 01/12/21 17:15 Nasal Coronavir OC43 PCR NOT DETECTED 01/12/21 17:15 Nasal Enterovir/Rhinovir PCR NOT DETECTED 01/12/21 17:15 Nasal Influenza B PCR NOT DETECTED 01/12/21 17:15 Nasal Influenza A PCR NOT DETECTED 01/12/21 17:15 Nasal Parainfluen 1 PCR NOT DETECTED 01/12/21 17:15 Nasal Parainfluen 2 PCR NOT DETECTED 01/12/21 17:15 Nasal Parainfluen 3 PCR NOT DETECTED 01/12/21 17:15 Nasal Parainfluen 4 PCR NOT DETECTED 01/12/21 17:15 Nasal RSV (PCR) NOT DETECTED 01/12/21 17:15 Nasal B.pertussis DNA PCR NOT DETECTED 01/12/21 17:15 Nasal C.pneumoniae (PCR) NOT DETECTED 01/12/21 17:15 Victorino Human Metapneumo PCR NOT DETECTED 01/12/21 17:15 Nasal M.pneumoniae (PCR) NOT DETECTED 01/12/21 17:15 Nasal SARS-CoV-2 (PCR) NOT DETECTED 01/12/21 17:15 Last Dose Date Not Reportable 01/12/21 16:40 Last Dose Time Not Reportable 01/12/21 16:40 Digoxin 0.3 ng/mL 01/12/21 16:40 Urine Opiates Screen NEGATIVE (NEGATIVE) 01/12/21 23:09 Ur Oxycodone Screen NEGATIVE (NEGATIVE) 01/12/21 23:09 Urine Methadone Screen NEGATIVE (NEGATIVE) 01/12/21 23:09 Ur Propoxyphene Screen NEGATIVE (NEGATIVE) 01/12/21 23:09 Ur Barbiturates Screen NEGATIVE (NEGATIVE) 01/12/21 23:09 Ur Tricyclics Screen NEGATIVE (NEGATIVE) 01/12/21 23:09 Ur Phencyclidine Scrn NEGATIVE (NEGATIVE) 01/12/21 23:09 Ur Amphetamine Screen NEGATIVE (NEGATIVE) 01/12/21 23:09 U Methamphetamines Scrn NEGATIVE (NEGATIVE) 01/12/21 23:09 U Benzodiazepines Scrn NEGATIVE (NEGATIVE) 01/12/21 23:09 Urine Cocaine Screen NEGATIVE (NEGATIVE) 01/12/21 23:09 U Cannabinoids Screen NEGATIVE (NEGATIVE) 01/12/21 23:09 ABX Reporting Has patient been on IV antibiotics over the past 48 hours?: No Current Medications - Current Medications Current Medications: Active Medications Acetaminophen (Acetaminophen 325 Mg Tablet) 650 mg PO Q4HR PRN PRN Reason: Pain 1 to 4 Cholecalciferol (Cholecalciferol 25 Mcg Tablet) 50 mcg PO DAILY [facility] Last Admin: 01/13/21 08:51 Dose: 50 mcg Documented by: Digoxin (Digoxin 125 Mcg Tablet) 62.5 mcg PO DAILY [facility] Duloxetine HCl (Duloxetine 20 Mg Capsule) 20 mg PO DAILY [facility] Last Admin: 01/13/21 08:51 Dose: 20 mg Documented by: Sodium Chloride (Normal Saline 0.9%) 1,000 mls @ 75 mls/hr IV .[id number] [facility] Stop: 01/13/21 22:19 Last Admin: 01/13/21 08:59 Dose: 75 mls/hr Documented by: Pantoprazole Sodium (Pantoprazole 40 Mg Tablet) 40 mg PO DAILY [facility] Last Admin: 01/13/21 08:51 Dose: 40 mg Documented by: Prednisone (Prednisone 5 Mg Tablet) 5 mg PO DAILY [facility] Last Admin: 01/13/21 08:51 Dose: 5 mg Documented by: Sodium Chloride (Sodium Chloride Flush 0.9% 10 Ml Syringe) 10 ml IVP PRN PRN PRN Reason: NEEDED PER PROVIDER ORDERS Sodium Chloride (Sodium Chloride Flush 0.9% 10 Ml Syringe) 10 ml IVP 0100,0900,1700 [facility] Last Admin: 01/13/21 08:52 Dose: 10 ml Documented by: Sotalol HCl (Sotalol 80 Mg Tablet) 40 mg PO BID [facility] Last Admin: 01/13/21 08:52 Dose: 40 mg Documented by: Tamsulosin HCl (Tamsulosin 0.4 Mg Capsule) 0.4 mg PO [facility] Last Admin: 01/12/21 21:25 Dose: 0.4 mg Documented by: Warfarin Sodium (Warfarin 5 Mg Tablet) [facility] Warfarin Sodium (Warfarin 2.5 Mg Tablet) 2.5 mg PO .DAILYSUNTUWEDTHFRIS [facility] Torsemide 200 mg PO QPM 05/03/14 Isosorbide Mononitrate ER [Imdur] 60 mg PO DAILY 07/12/16 Colchicine 0.6 mg PO DAILY 01/10/20 Loperamide [Imodium] 2 mg PO PRN PRN 01/10/20 Sotalol [Betapace] 40 mg PO QPM 01/10/20 Torsemide 100 mg PO DAILY 01/10/20 predniSONE [Prednisone] 5 mg PO DAILY 01/10/20 Calcium Citrate 1,000 mg PO DAILY 05/22/20 Digoxin 62.5 mcg PO DAILY 05/22/20 Pantoprazole [Protonix] 40 mg PO DAILY PRN 05/22/20 Tamsulosin HCl [Flomax] 0.4 mg PO DAILY 05/22/20 metOLazone [Metolazone] 5 mg PO DAILY PRN MDD .Once if weight 174lb, 3tab/wk 05/22/20 polyethylene glycoL 3350 [Miralax] 17 g PO DAILY PRN 05/22/20 Cholecalciferol (Vitamin D3) [Vitamin D3] 2,000 unit PO DAILY 01/13/21 DULoxetine [Cymbalta] 30 mg PO DAILY 01/13/21 Metoprolol Succinate [Toprol Xl] 25 mg PO DAILY 01/13/21 Potassium Chloride [Klor-Con 10] 40 meq PO BID 01/13/21 Promethazine [Phenergan] 25 mg PO Q4H PRN 01/13/21 Sotalol HCl [Betapace] 80 mg PO DAILY 01/13/21 Warfarin [Coumadin] 2.5 mg PO UD 01/13/21 allopurinoL [Zyloprim] 200 mg PO DAILY 01/13/21
[2021-01-13] MEDS: TAMSULOSIN 0.4 MG CAPSULE PO SCH (21:17)
[2021-01-14] MEDS: SODIUM CHLORIDE FLUSH 0.9% 10 ML SYRINGE IVP SCH ×3 (01:04→16:29)
[2021-01-14 05:23] LABS: BASOPHILS % (AUTO) 0.3 %; EOSINOPHILS % (AUTO) 0.4 %; HGB - HEMOGLOBIN 12.6 g/dL (14.0-18.0); LYMPHOCYTES % (AUTO) 13.1 %; MEAN CORPUSCULAR HEMOGLOBIN 33.9 pg (27.0-31.0); MEAN CORPUSCULAR HGB CONC 33.2 g/dL (32.0-36.0); MEAN CORPUSCULAR VOLUME 102.2 fL (80.0-94.0); MEAN PLATELET VOLUME 10.5 fL (7.4-11.4); MONOCYTES % (AUTO) 12.6 %; NEUTROPHILS # (AUTO) 5.5 10^3/uL (1.5-6.6); NEUTROPHILS % (AUTO) 71.9 %; PLT - PLATELET COUNT 197 10^3/uL (130-450); RED BLOOD COUNT 3.72 10^6/uL (4.70-6.10); RED CELL DISTRIBUTION WIDTH 15.5 % (12.0-15.0); WHITE BLOOD COUNT 7.6 x10^3/uL (4.8-10.8)
[2021-01-14 05:27] LABS: INR 1.3 (0.8-1.2)
[2021-01-14 05:34] LABS: CALCIUM 10.4 mg/dL (8.5-10.3); CREATININE 1.6 mg/dL (0.6-1.2); MAGNESIUM 1.9 mg/dL (1.7-2.8); POTASSIUM 3.4 mmol/L (3.5-5.0)
[2021-01-14] MEDS ORDERED: POTASSIUM CHLORIDE 20 MEQ TABLET PO ONE (07:48)
[2021-01-14] MEDS ORDERED: SODIUM CHLORIDE 0.9% 1,000 ML IV SCH (08:00)
--- NOTE | 2021-01-14 08:49 | XRAY Report ---
PROCEDURE: Chest 1 View X-Ray INDICATIONS: sob TECHNIQUE: One view of the chest was acquired. COMPARISON: 05/03/2014 chest x-ray FINDINGS: Surgical changes and devices: None. Lungs and pleura: No pleural effusions or pneumothorax. There is mild patchy bilateral perihilar opa city. Mediastinum: Mediastinal contours appear normal. Heart size is normal. Bones and chest wall: No suspicious bony lesions. Overlying soft tissues appear unremarkable. IMPRESSION: Mild bilateral pneumonia. Reviewed by: Rupesh Ferraro MD on 01/14/2021 8:48 AM PDT Approved by: Rupesh Ferraro MD on 01/14/2021 8:48 AM PDT Station ID: [id number]
[2021-01-14] MEDS ORDERED: DIGOXIN 125 MCG TABLET PO SCH ×2 (09:00)
[2021-01-14 09:14] LABS: MUDS CUTOFF CONCENTRATIONS CUTOFF CONC BELOW:
[2021-01-14] MEDS: SODIUM CHLORIDE 0.9% 1,000 ML IV SCH ×2 (09:14→14:44)
[2021-01-14 09:30] LABS: ABG PCO2 40 mmHg (34-45); ABG PH 7.48 (7.35-7.45); ABG PO2 72 mmHg (80-100)
[2021-01-14 09:31] LABS: ABG BASE EXCESS 5.7 mmol/L (-2.0-3.0); ABG OXYGEN SATURATION 95 % (94-98); ABG TCO2 30.2 MMOL/L (21.0-29.0); ALLEN TEST POSITIVE
[2021-01-14 10:07] LABS: AMPHETAMINE SCREEN,URINE NEGATIVE (NEGATIVE); BARBITURATE SCREEN,UR NEGATIVE (NEGATIVE); BENZODIAZEPINES SCREEN, URINE NEGATIVE (NEGATIVE); COCAINE SCREEN URINE NEGATIVE (NEGATIVE); METHADONE SCREEN, URINE NEGATIVE (NEGATIVE); METHAMPHETAMINES SCREEN, URINE NEGATIVE (NEGATIVE); OPIATE SCREEN, URINE NEGATIVE (NEGATIVE); OXYCODONE SCREEN, URINE NEGATIVE (NEGATIVE); PROPOXYPHENE SCREEN, URINE NEGATIVE (NEGATIVE); THC CANNABINOID SCREEN, URINE NEGATIVE (NEGATIVE); TRICYCLIC ANTIDEPRESSANT,URINE NEGATIVE (NEGATIVE)
--- NOTE | 2021-01-14 10:09 | CT Report ---
PROCEDURE: HEAD WO INDICATIONS: AMS TECHNIQUE: Noncontrast 4.5 mm thick angled axial sections acquired from the foramen magnum to the vertex. For r adiation dose reduction, the following was used: automated exposure control, adjustment of mA and/or kV according to patient size. COMPARISON: 01/12/2021 FINDINGS: Image quality: Motion artifact can be seen at the skull base. CSF spaces: Basal cisterns are patent. No extra-axial fluid collections. Ventricles are normal in size and shape. Brain: No midline shift. No intracranial masses or hemorrhage. [place]-white matter interface is norm al. Brain parenchymal volume loss and chronic small vessel ischemic change can be seen. There is low density within the deep white matter of the right frontal lobe, which is similar to the prior study. Skull and face: Calvarium and visualized facial bones are intact, without suspicious lesions. Sinuses: Visualized sinuses and mastoids are clear. IMPRESSION: No prasanna, acute abnormality can be seen. No significant change from the head CT performed 2 days previously. Brain parenchymal volume loss and chronic small vessel ischemic change can be seen. 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 If it would be helpful for clinical management decision making, please consider a dedicated brain MRI (without and with contrast) for further evaluation (assuming that there is no contraindication). Reviewed by: Jairo Fishman MD on 01/14/2021 9:08 AM JENNIFER Approved by: Jairo Fishman MD on 01/14/2021 9:08 AM JENNIFER Station ID: [id number]
[2021-01-14] MEDS: CHOLECALCIFEROL 25 MCG TABLET PO SCH (10:38)
[2021-01-14] MEDS: DIGOXIN 125 MCG TABLET PO SCH (10:38)
[2021-01-14] MEDS: DULoxetine 20 MG CAPSULE PO SCH (10:38)
[2021-01-14] MEDS: predniSONE 5 MG TABLET PO SCH (10:39)
[2021-01-14] MEDS: PANTOPRAZOLE 40 MG TABLET PO SCH (10:39)
[2021-01-14] MEDS: SOTALOL 80 MG TABLET PO SCH ×2 (10:43→22:36)
[2021-01-14] MEDS ORDERED: DOXYCYCLINE INJ 100 MG in SODIUM CHLORIDE 0.9% MINIBAG 100 ML IV SCH (11:00)
[2021-01-14] MEDS ORDERED: METOPROLOL 5 MG/5 ML VIAL IVP PRN (11:05)
[2021-01-14] MEDS ORDERED: PIPERACILLIN/TAZOBACTAM 3.375 GM in SODIUM CHLORIDE 0.9% MINIBAG 100 ML IV ONE (11:30)
[2021-01-14] MEDS ORDERED: AZTREONAM 2 GM in SODIUM CHLORIDE 0.9% MINIBAG 100 ML IV SCH (14:00)
--- NOTE | 2021-01-14 15:39 | PROVIDER PROGRESS NOTE ---
Subjective - Prog Note Date Prog Note Date: 01/14/21 - Subjective Pt reports feeling: Worse Subjective: Patient is slowly response to question and command, report he felt tired and want to have sleep. nurse called rapid response. Pt has low edge of blood p ressure but stable. I called pt's about pt's conditions. pt's stated she will come hospital. After she came to the hospital, I will report patient's conditions, And to discuss the care plan. Patient's state patient had POLST form in the home refrigerate in which state patient is DNR. She will bring POLST form on tomorrow to the hospital. Discussed patient's physical deconditioning c onditions. Patient's wish to continue DNR, she may consider for palliative care or further care plan if patient's condition did not turn positive Patient's stated patient had so dehydrated in the last admission in the hospital, His systolic blood pressure was dropped to the 88. Patient took 2 beta-pranay in his home medication and 300 mg torsemide daily. pt's discussed pt's medications with pt's doughnut glazier Dr. Najera. Patient present dehydration again in the exam and low side of blood pressure. Patient's 's also reported patient had a Significantly aspiration with strong cough just before admission. Discussed the care plan with the patient's , we will hydration for pt, we will control of pt's afib with RVR. If pt turn to positive and good direction to be Hemodynamic stable, Patient's reported she She has difficulty to take care of patient anymore. if patient is qualified for SNF, she hope pt can be d/c to SNF. Current Medications - Current Medications Current Medications: Active Medications Acetaminophen (Acetaminophen 325 Mg Tablet) 650 mg PO Q4HR PRN PRN Reason: Pain 1 to 4 Cholecalciferol (Cholecalciferol 25 Mcg Tablet) 50 mcg PO DAILY [facility] Last Admin: 01/14/21 10:38 Dose: Not Given Documented by: Digoxin (Digoxin 125 Mcg Tablet) 125 mcg PO DAILY [facility] Last Admin: 01/14/21 10:38 Dose: Not Given Documented by: Duloxetine HCl (Duloxetine 20 Mg Capsule) 20 mg PO DAILY [facility] Last Admin: 01/14/21 10:38 Dose: Not Given Documented by: Sodium Chloride (Normal Saline 0.9%) 1,000 mls @ 100 mls/hr IV .Q10H [facility] Stop: 01/15/21 04:47 Last Admin: 01/14/21 14:44 Dose: 100 mls/hr Documented by: Piperacillin Sod/Tazobactam (Sod 3.375 gm/ Sodium Chloride) 100 mls @ 200 mls/hr IV Q8HR [facility] Last Admin: 01/14/21 16:06 Dose: 200 mls/hr Documented by: Metoprolol Tartrate (Metoprolol 5 Mg/5 Ml Vial) 5 mg IVP Q6H PRN PRN Reason: Tachycardia Pantoprazole Sodium (Pantoprazole 40 Mg Tablet) 40 mg PO DAILY [facility] Last Admin: 01/14/21 10:39 Dose: Not Given Documented by: Prednisone (Prednisone 5 Mg Tablet) 5 mg PO DAILY [facility] Last Admin: 01/14/21 10:39 Dose: Not Given Documented by: Sodium Chloride (Sodium Chloride Flush 0.9% 10 Ml Syringe) 10 ml IVP PRN PRN PRN Reason: NEEDED PER PROVIDER ORDERS Sodium Chloride (Sodium Chloride Flush 0.9% 10 Ml Syringe) 10 ml IVP 0100,0900,1700 [facility] Last Admin: 01/14/21 16:29 Dose: Not Given Documented by: Sotalol HCl (Sotalol 80 Mg Tablet) 80 mg PO DAILY [facility] Last Admin: 01/14/21 10:43 Dose: Not Given Documented by: Sotalol HCl (Sotalol 80 Mg Tablet) 40 mg PO QPM [facility] Tamsulosin HCl (Tamsulosin 0.4 Mg Capsule) 0.4 mg PO HS [facility] Last Admin: 01/13/21 21:17 Dose: 0.4 mg Documented by: Warfarin Sodium (Warfarin 2.5 Mg Tablet) 2.5 mg PO .DAILYSUNTUWEDTHFRIS [facility] Torsemide 200 mg PO QPM 05/03/14 Isosorbide Mononitrate ER [Imdur] 60 mg PO DAILY 07/12/16 Colchicine 0.6 mg PO DAILY 01/10/20 Loperamide [Imodium] 2 mg PO PRN PRN 01/10/20 Sotalol [Betapace] 40 mg PO QPM 01/10/20 Torsemide 100 mg PO DAILY 01/10/20 predniSONE [Prednisone] 5 mg PO DAILY 01/10/20 Calcium Citrate 1,000 mg PO DAILY 05/22/20 Digoxin 62.5 mcg PO DAILY 05/22/20 Pantoprazole [Protonix] 40 mg PO DAILY PRN 05/22/20 Tamsulosin HCl [Flomax] 0.4 mg PO DAILY 05/22/20 metOLazone [Metolazone] 5 mg PO DAILY PRN MDD .Once if weight 174lb, 3tab/wk 05/22/20 polyethylene glycoL 3350 [Miralax] 17 g PO DAILY PRN 05/22/20 Cholecalciferol (Vitamin D3) [Vitamin D3] 2,000 unit PO DAILY 01/13/21 DULoxetine [Cymbalta] 30 mg PO DAILY 01/13/21 Metoprolol Succinate [Toprol Xl] 25 mg PO DAILY 01/13/21 Potassium Chloride [Klor-Con 10] 40 meq PO BID 01/13/21 Promethazine [Phenergan] 25 mg PO Q4H PRN 01/13/21 Sotalol HCl [Betapace] 80 mg PO DAILY 01/13/21 Warfarin [Coumadin] 2.5 mg PO UD 01/13/21 allopurinoL [Zyloprim] 200 mg PO DAILY 01/13/21 Objective - Vital Signs/Intake & Output Vital Signs: Vital Signs x48h Temp Pulse Resp BP Pulse Ox 01/14/21 12:30 36.5 C 85 16 103/72 96 01/14/21 08:17 96/42 L 01/14/21 08:12 98/44 L 01/14/21 08:10 78/11 L 01/14/21 08:06 36.7 C 97 20 103/89 H 91 L Intake & Output: Intake & Output 01/11/21 01/12/21 01/13/21 01/14/21 23:59 23:59 23:59 23:59 Intake Total 418 2422 1050 Output Total 275 Balance 418 2422 775 - Objective General Appearance: positive: Alert, Lethargic Eyes Bilateral: positive: Normal inspection, No lid inflammation ENT: positive: ENT inspection nml, Dry mucous membranes. negative: No signs of dehydration Neck: positive: Nml inspection, Trachea midline. negative: Thyromegaly, Tracheal deviation Respiratory: positive: Chest non-tender, Rales. negative: Breath sounds nml, Wheezes Cardiovascular: positive: Regular rate & rhythm, No murmur, Tachycardia. negative: Bradycardia, Systolic murmur, Diastolic murmur Abdomen: positive: Non-tender, Nml bowel sounds, No distention. negative: Tenderness Back: positive: Nml inspection Skin: positive: Color nml, Warm, Dry. negative: Cyanosis Extremities: positive: Non-tender. negative: Calf tenderness Neurologic/Psychiatric: positive: Sensation nml. negative: Weakness, Sensory loss, Facial droop, Slurred/abnml speech - Lab Results Fish Bones: 01/15/21 05:10 01/15/21 05:10 Other Labs: Lab Results x24hrs 01/14/21 01/14/21 01/14/21 Range/Units 09:05 09:03 08:43 WBC (4.8-10.8) x10^3/uL RBC (4.70-6.10) 10^6/uL Hgb (14.0-18.0) g/dL Hct (42.0-52.0) % MCV (80.0-94.0) fL MCH (27.0-31.0) pg MCHC (32.0-36.0) g/dL RDW (12.0-15.0) % Plt Count (130-450) 10^3/uL MPV (7.4-11.4) fL Neut # (Auto) (1.5-6.6) 10^3/uL Lymph # (Auto) (1.5-3.5) 10^3/uL [place] # (Auto) (0.0-1.0) 10^3/uL Eos # (Auto) (0.0-0.7) 10^3/uL Baso # (Auto) (0.0-0.1) 10^3/uL Absolute Nucleated RBC x10^3/uL Nucleated RBC % /100WBC PT (9.9-12.6) secs INR (0.8-1.2) Bld Gas Analysis Time 0905 Sample Site RIGHT RADIAL ABG pH 7.48 H (7.35-7.45) ABG pCO2 40 (34-45) mmHg ABG pO2 72 L (80-100) mmHg ABG HCO3 29.0 H (22.0-26.0) mmol/L ABG Total CO2 30.2 H (21.0-29.0) MMOL/L ABG O2 Saturation 95 (94-98) % ABG Base Excess 5.7 H (-2.0-3.0) mmol/L Mo Test POSITIVE Room Air YES Sodium (135-145) mmol/L Potassium (3.5-5.0) mmol/L Chloride (101-111) mmol/L Carbon Dioxide (21-32) mmol/L Anion Gap (6-13) BUN (6-20) mg/dL Creatinine (0.6-1.2) mg/dL Estimated GFR (MDRD) (>89) Glucose (70-100) mg/dL Lactic Acid 1.3 (0.5-2.2) mmol/L Calcium (8.5-10.3) mg/dL Magnesium (1.7-2.8) mg/dL Troponin I High Sens (2.3-19.7) ng/L Urine Opiates Screen NEGATIVE (NEGATIVE) Ur Oxycodone Screen NEGATIVE (NEGATIVE) Urine Methadone Screen NEGATIVE (NEGATIVE) Ur Propoxyphene Screen NEGATIVE (NEGATIVE) Ur Barbiturates Screen NEGATIVE (NEGATIVE) Ur Tricyclics Screen NEGATIVE (NEGATIVE) Ur Phencyclidine Scrn NEGATIVE (NEGATIVE) Ur Amphetamine Screen NEGATIVE (NEGATIVE) U Methamphetamines Scrn NEGATIVE (NEGATIVE) U Benzodiazepines Scrn NEGATIVE (NEGATIVE) Urine Cocaine Screen NEGATIVE (NEGATIVE) U Cannabinoids Screen NEGATIVE (NEGATIVE) 01/14/21 01/14/21 01/14/21 Range/Units 08:43 04:45 04:45 WBC (4.8-10.8) x10^3/uL RBC (4.70-6.10) 10^6/uL Hgb (14.0-18.0) g/dL Hct (42.0-52.0) % MCV (80.0-94.0) fL MCH (27.0-31.0) pg MCHC (32.0-36.0) g/dL RDW (12.0-15.0) % Plt Count (130-450) 10^3/uL MPV (7.4-11.4) fL Neut # (Auto) (1.5-6.6) 10^3/uL Lymph # (Auto) (1.5-3.5) 10^3/uL [place] # (Auto) (0.0-1.0) 10^3/uL Eos # (Auto) (0.0-0.7) 10^3/uL Baso # (Auto) (0.0-0.1) 10^3/uL Absolute Nucleated RBC x10^3/uL Nucleated RBC % /100WBC PT 14.0 H (9.9-12.6) secs INR 1.3 H (0.8-1.2) Bld Gas Analysis Time Sample Site ABG pH (7.35-7.45) ABG pCO2 (34-45) mmHg ABG pO2 (80-100) mmHg ABG HCO3 (22.0-26.0) mmol/L ABG Total CO2 (21.0-29.0) MMOL/L ABG O2 Saturation (94-98) % ABG Base Excess (-2.0-3.0) mmol/L Mo Test Room Air Sodium 135 (135-145) mmol/L Potassium 3.4 L (3.5-5.0) mmol/L Chloride 92 L (101-111) mmol/L Carbon Dioxide 28 (21-32) mmol/L Anion Gap 15.0 H (6-13) BUN 57 H (6-20) mg/dL Creatinine 1.6 H (0.6-1.2) mg/dL Estimated GFR (MDRD) 42 L (>89) Glucose 153 H (70-100) mg/dL Lactic Acid (0.5-2.2) mmol/L Calcium 10.4 H (8.5-10.3) mg/dL Magnesium 1.9 (1.7-2.8) mg/dL Troponin I High Sens 8.4 (2.3-19.7) ng/L Urine Opiates Screen (NEGATIVE) Ur Oxycodone Screen (NEGATIVE) Urine Methadone Screen (NEGATIVE) Ur Propoxyphene Screen (NEGATIVE) Ur Barbiturates Screen (NEGATIVE) Ur Tricyclics Screen (NEGATIVE) Ur Phencyclidine Scrn (NEGATIVE) Ur Amphetamine Screen (NEGATIVE) U Methamphetamines Scrn (NEGATIVE) U Benzodiazepines Scrn (NEGATIVE) Urine Cocaine Screen (NEGATIVE) U Cannabinoids Screen (NEGATIVE) 01/14/21 Range/Units 04:45 WBC 7.6 (4.8-10.8) x10^3/uL RBC 3.72 L (4.70-6.10) 10^6/uL Hgb 12.6 L (14.0-18.0) g/dL Hct 38.0 L (42.0-52.0) % MCV 102.2 H (80.0-94.0) fL MCH 33.9 H (27.0-31.0) pg MCHC 33.2 (32.0-36.0) g/dL RDW 15.5 H (12.0-15.0) % Plt Count 197 (130-450) 10^3/uL MPV 10.5 (7.4-11.4) fL Neut # (Auto) 5.5 (1.5-6.6) 10^3/uL Lymph # (Auto) 1.0 L (1.5-3.5) 10^3/uL [place] # (Auto) 1.0 (0.0-1.0) 10^3/uL Eos # (Auto) 0.0 (0.0-0.7) 10^3/uL Baso # (Auto) 0.0 (0.0-0.1) 10^3/uL Absolute Nucleated RBC 0.00 x10^3/uL Nucleated RBC % 0.0 /100WBC PT (9.9-12.6) secs INR (0.8-1.2) Bld Gas Analysis Time Sample Site ABG pH (7.35-7.45) ABG pCO2 (34-45) mmHg ABG pO2 (80-100) mmHg ABG HCO3 (22.0-26.0) mmol/L ABG Total CO2 (21.0-29.0) MMOL/L ABG O2 Saturation (94-98) % ABG Base Excess (-2.0-3.0) mmol/L Mo Test Room Air Sodium (135-145) mmol/L Potassium (3.5-5.0) mmol/L Chloride (101-111) mmol/L Carbon Dioxide (21-32) mmol/L Anion Gap (6-13) BUN (6-20) mg/dL Creatinine (0.6-1.2) mg/dL Estimated GFR (MDRD) (>89) Glucose (70-100) mg/dL Lactic Acid (0.5-2.2) mmol/L Calcium (8.5-10.3) mg/dL Magnesium (1.7-2.8) mg/dL Troponin I High Sens (2.3-19.7) ng/L Urine Opiates Screen (NEGATIVE) Ur Oxycodone Screen (NEGATIVE) Urine Methadone Screen (NEGATIVE) Ur Propoxyphene Screen (NEGATIVE) Ur Barbiturates Screen (NEGATIVE) Ur Tricyclics Screen (NEGATIVE) Ur Phencyclidine Scrn (NEGATIVE) Ur Amphetamine Screen (NEGATIVE) U Methamphetamines Scrn (NEGATIVE) U Benzodiazepines Scrn (NEGATIVE) Urine Cocaine Screen (NEGATIVE) U Cannabinoids Screen (NEGATIVE) ABX Reporting Has patient been on IV antibiotics over the past 48 hours?: Yes Assessment/Plan - Problem List (1) Aspiration pneumonia Impression: 01/14 Patient's reported patient had a significant aspiration in the home. Chest x-ray show bilaterally mild pneumonia, Patient also present cough. We will start with Zosyn, intravenous IV fluids, dysphagia pured diet. Nurse for aspiration precaution (2) Hyponatremia Assessment/Plan: 01/14 resolved pt's Sodium is 130, and his baseline is approximately 132, Improved. We will continue hold his home diuretics and spironolactone. Patient also has orthostatic hypotension, we will try to give very gently intravenous IV fluids. Continue laboratory apparatus glass grinder and vital signs monitor (3)dehydration Patient Clinically present significant dehydration, patient takes 300 mg Torsemide Daily in the home. We will give patient intravenous IV fluids, as a precaution fluid overloaded. Patient has history of restrictive cardiomyopathy. Echo show with mild reduced EF otherwise it is unremarkable (4)AMS 01/14 Today patient response slow but patient is a late, he still can answer the question, Patient's blood pressure also is low side. We will order CT of the head to rule out stroke Or other abnormality. neuro check (5) hypotension 01/14 pt Present hypotension. We will hold patient blood pressure Medications, give pt intravenous IV fluids, Fall precautions. Echo show with mild reduced EF otherwise it is unremarkable (6)generalized weakness Patient Also present generalized weakness, multiple factors could contribute, Including orthostatic hypotension, hyponatremia, history of cardiomyopathy. We will consult with PT and OT, And treat underlying facts. (7) History of restrictive cardiomyopathy Conclusion/Plan: Echo study Echo show with mild reduced EF otherwise it is unremarkable. pt has history of restrictive cardiomyopathy. patient does not appear to be in heart failure at this time given his near normal BNP and mild edema. We will hold his home Lasix and spironolactone given the hyponatremia we will gently hydrate him (8) CKD (chronic kidney disease), stage III Conclusion/Plan: His renal function is currently at baseline with a creatinine of 1.5. continue monitor his renal function while he is hospitalized. (9) atrial fibrillation Conclusion/Plan: pt has slight elevated HR and pt had afib now with hx of paroxysmal afib, will continue sotalol after pt's BP control, continue Digoxin His INR is subtherapeutic. continue Coumadin. continue PT/INR check (10) Physical deconditioning Conclusion/Plan: agree pt has physical deconditioning condition now. pt is unfortunately declining from a physical standpoint due to his severe arthritis/gout. He has had a further acute decline due to recent surgical intervention. pt is consulted with PT/OT today. pt prefers to go home with physical therapy or other than a nursing home facility as needed (11) Vivid dream Conclusion/Plan: pt is alert and oriented on today. He has been having vivid dreams which I suspect is related to the Wellbutrin which she has since discontinued. The oxycodone may have also been contributing. We will continue to hold both of these. (12) Osteoarthritis Conclusion/Plan: continue Tylenol on today. pt unfortunately has significant osteoarthritis with multiple joint involvement. We will continue with Tylenol as needed for pain control. We will hold the oxycodone given his recent vivid dreams. We will avoid NSAIDs given his CKD.
[2021-01-14] MEDS: PIPERACILLIN/TAZOBACTAM 3.375 GM in SODIUM CHLORIDE 0.9% MINIBAG 100 ML IV SCH ×2 (16:06→21:48)
--- NOTE | 2021-01-14 16:25 | ADVANCE CARE PLANNING NOTE ---
Advance Care Planning - Planning Encounter Date: 01/14/21 Time: 11:00 Purpose: advanced care plan for pt Parties in Attendance: pt, pt's and me Decisional Capacity of the Patient: pt had limited decision Capacity on today, pt's help make decision. - Encounter Subjective/Patient's Story: Patient is slowly response to question and command, report he felt tired and want to have sleep. nurse called rapid response. Pt has low edge of blood pressure but stable. I called pt's about pt's conditions. pt's stated she will come hospital. After she came to the hospital, I will report patient's conditions, And to discuss the care plan. Patient's state patient had POLST form in the home refrigerate in which state patient is DNR. She will bring POLST form on tomorrow to the hospital. Discussed patient's physical deconditioning conditions. Patient's wish to continue DNR, she may consider for palliative care or further care plan if patient's condition did not turn positive Patient's stated patient had so dehydrated in the last admission in the hospital, His systolic blood pressure was dropped to the 88. Patient took 2 beta-pranay in his home medication and 300 mg torsemide daily. pt's discussed pt's medications with pt's oceanographic meteorologist Dr. Najera. Patient present dehydration again in the exam and low side of blood pressure. Patient's 's also reported patient had a Significantly aspiration with strong cough just before admission. Discussed the care plan with the patient's , we will hydration for pt, we will control of pt's afib with RVR. If pt turn to positive and good direction to be Hemodynamic stable, Patient's reported she She has difficulty to take care of patient anymore. if patient is qualified for SNF, she hope pt can be d/c to SNF. Objective/Medical Story: pt has a past medical history significant for osteoarthritis, gout, restrictive cardiomyopathy, CKD stage III, Generalized weakness, aspiration/Dysphagia, Physical deconditioning. Goals of Care: Stabilization, and Improvement. if pt turn on wrong direction, patient would considerate palliative care or even hospice care Plan: change Patient CODE STATUS to DNR now. Patient had POLST in the home, patient will bring to the hospital on tomorrow. Treat current medical problem, dehydration and pneumonia, Possible discharge to SNF. if Patient turn on wrong direction, patient would consider a palliative care or even hospice care Code Status: Do Not Attempt Resuscitation Time spent on advance care plannin
[2021-01-14] MEDS: SACCHAROMYCES BOULARDII 250 MG CAPSULE PO SCH (17:48)
[2021-01-14] MEDS: TAMSULOSIN 0.4 MG CAPSULE PO SCH (21:51)
[2021-01-15] MEDS: SODIUM CHLORIDE FLUSH 0.9% 10 ML SYRINGE IVP SCH ×3 (01:10→17:01)
[2021-01-15 05:41] LABS: BASOPHILS % (AUTO) 0.2 %; EOSINOPHILS % (AUTO) 0.8 %; HCT - HEMATOCRIT 38.2 % (42.0-52.0); HGB - HEMOGLOBIN 12.3 g/dL (14.0-18.0); LYMPHOCYTES # (AUTO) 0.8 10^3/uL (1.5-3.5); LYMPHOCYTES % (AUTO) 14.3 %; MEAN CORPUSCULAR HEMOGLOBIN 33.4 pg (27.0-31.0); MEAN CORPUSCULAR HGB CONC 32.2 g/dL (32.0-36.0); MEAN CORPUSCULAR VOLUME 103.8 fL (80.0-94.0); MEAN PLATELET VOLUME 10.3 fL (7.4-11.4); MONOCYTES # (AUTO) 0.6 10^3/uL (0.0-1.0); MONOCYTES % (AUTO) 11.1 %; NEUTROPHILS # (AUTO) 3.8 10^3/uL (1.5-6.6); NEUTROPHILS % (AUTO) 72.1 %; PLT - PLATELET COUNT 147 10^3/uL (130-450); RED BLOOD COUNT 3.68 10^6/uL (4.70-6.10); RED CELL DISTRIBUTION WIDTH 15.9 % (12.0-15.0); WHITE BLOOD COUNT 5.2 x10^3/uL (4.8-10.8)
[2021-01-15 05:52] LABS: CALCIUM 9.6 mg/dL (8.5-10.3); CREATININE 1.1 mg/dL (0.6-1.2); POTASSIUM 2.8 mmol/L (3.5-5.0)
[2021-01-15 05:55] LABS: INR 1.3 (0.8-1.2); PT - PROTHROMBIN TIME 13.9 secs (9.9-12.6)
[2021-01-15] MEDS: PIPERACILLIN/TAZOBACTAM 3.375 GM in SODIUM CHLORIDE 0.9% MINIBAG 100 ML IV SCH ×3 (06:27→21:09)
[2021-01-15] MEDS ORDERED: POTASSIUM CHLORIDE 20 MEQ TABLET PO ONE ×2 (07:16→07:29)
[2021-01-15] MEDS: SACCHAROMYCES BOULARDII 250 MG CAPSULE PO SCH ×2 (07:57→17:01)
[2021-01-15] MEDS ORDERED: POTASSIUM CHLOR 10 MEQ/100 ML 10 MEQ/100 ML BAG IV SCH (08:00)
[2021-01-15] MEDS: POTASSIUM CHLOR 10 MEQ/100 ML 10 MEQ/100 ML BAG IV SCH ×2 (08:01→10:06)
[2021-01-15] MEDS ORDERED: ENOXAPARIN 40 MG/0.4 ML SYRINGE SUBQ SCH (09:00)
[2021-01-15] MEDS ORDERED: FUROSEMIDE 20 MG TABLET PO SCH (10:00)
[2021-01-15] MEDS ORDERED: FUROSEMIDE 20 MG/2 ML VIAL IVP SCH (10:00)
[2021-01-15] MEDS: predniSONE 5 MG TABLET PO SCH (10:03)
[2021-01-15] MEDS: PANTOPRAZOLE 40 MG TABLET PO SCH (10:04)
[2021-01-15] MEDS: DIGOXIN 125 MCG TABLET PO SCH (10:04)
[2021-01-15] MEDS: DULoxetine 20 MG CAPSULE PO SCH (10:04)
[2021-01-15] MEDS: CHOLECALCIFEROL 25 MCG TABLET PO SCH (10:05)
[2021-01-15] MEDS: SOTALOL 80 MG TABLET PO SCH ×2 (10:06→21:09)
[2021-01-15] MEDS ORDERED: WARFARIN 5 MG TABLET PO SCH (14:00)
--- NOTE | 2021-01-15 15:17 | PROVIDER PROGRESS NOTE ---
Subjective - Prog Note Date Prog Note Date: 01/15/21 - Subjective Pt reports feeling: No change Subjective: Patient still has very poor appetite, patient come to the hospital, report patient has been very poor appetite at home as well. Patient is more alert today, patient's blood pressure is better today. but Patient need oxygen to support his oxygen saturation today. Patient report patient told her in the morning he want to give up his life. Patient report if patient and she make a decision to choose hospice, she would like to choose [facility] hospice care. Patient had palliative palliative consult in the before. his does not want palliative consult again. Patient's reported she will discuss with the patient and her family to make the decision. Current Medications - Current Medications Current Medications: Active Medications Acetaminophen (Acetaminophen 325 Mg Tablet) 650 mg PO Q4HR PRN PRN Reason: Pain 1 to 4 Cholecalciferol (Cholecalciferol 25 Mcg Tablet) 50 mcg PO DAILY [facility] Last Admin: 01/15/21 10:05 Dose: 50 mcg Documented by: Digoxin (Digoxin 125 Mcg Tablet) 125 mcg PO DAILY [facility] Last Admin: 01/15/21 10:04 Dose: 125 mcg Documented by: Duloxetine HCl (Duloxetine 20 Mg Capsule) 20 mg PO DAILY [facility] Last Admin: 01/15/21 10:04 Dose: 20 mg Documented by: Furosemide (Furosemide 20 Mg/2 Ml Vial) 20 mg IVP DAILY [facility] Last Admin: 01/15/21 10:06 Dose: 20 mg Documented by: Piperacillin Sod/Tazobactam (Sod 3.375 gm/ Sodium Chloride) 100 mls @ 200 mls/hr IV Q8HR [facility] Last Infusion: 01/15/21 14:51 Dose: Infused Documented by: Metoprolol Tartrate (Metoprolol 5 Mg/5 Ml Vial) 5 mg IVP Q6H PRN PRN Reason: Tachycardia Pantoprazole Sodium (Pantoprazole 40 Mg Tablet) 40 mg PO DAILY [facility] Last Admin: 01/15/21 10:04 Dose: 40 mg Documented by: Prednisone (Prednisone 5 Mg Tablet) 5 mg PO DAILY [facility] Last Admin: 01/15/21 10:03 Dose: 5 mg Documented by: Saccharomyces Boulardii (Saccharomyces Boulardii 250 Mg Capsule) 250 mg PO BIDWM [facility] Last Admin: 01/15/21 07:57 Dose: 250 mg Documented by: Sodium Chloride (Sodium Chloride Flush 0.9% 10 Ml Syringe) 10 ml IVP PRN PRN PRN Reason: NEEDED PER PROVIDER ORDERS Sodium Chloride (Sodium Chloride Flush 0.9% 10 Ml Syringe) 10 ml IVP 0100,0900,1700 [facility] Last Admin: 01/15/21 10:06 Dose: 10 ml Documented by: Sotalol HCl (Sotalol 80 Mg Tablet) 80 mg PO DAILY [facility] Last Admin: 01/15/21 10:06 Dose: 80 mg Documented by: Sotalol HCl (Sotalol 80 Mg Tablet) 40 mg PO QPM [facility] Last Admin: 01/14/21 22:36 Dose: Not Given Documented by: Tamsulosin HCl (Tamsulosin 0.4 Mg Capsule) 0.4 mg PO [facility] Last Admin: 01/14/21 21:51 Dose: 0.4 mg Documented by: Warfarin Sodium (Warfarin 5 Mg Tablet) 5 mg PO ONCE [facility] Stop: 01/15/21 17:00 Last Admin: 01/15/21 13:57 Dose: 5 mg Documented by: Warfarin Sodium (Warfarin 2.5 Mg Tablet) 2.5 [facility] Torsemide 200 mg PO QPM 05/03/14 Isosorbide Mononitrate ER [Imdur] 60 mg PO DAILY 07/12/16 Colchicine 0.6 mg PO DAILY 01/10/20 Loperamide [Imodium] 2 mg PO PRN PRN 01/10/20 Sotalol [Betapace] 40 mg PO QPM 01/10/20 Torsemide 100 mg PO DAILY 01/10/20 predniSONE [Prednisone] 5 mg PO DAILY 01/10/20 Calcium Citrate 1,000 mg PO DAILY 05/22/20 Digoxin 62.5 mcg PO DAILY 05/22/20 Pantoprazole [Protonix] 40 mg PO DAILY PRN 05/22/20 Tamsulosin HCl [Flomax] 0.4 mg PO DAILY 05/22/20 metOLazone [Metolazone] 5 mg PO DAILY PRN MDD .Once if weight 174lb, 3tab/wk 05/22/20 polyethylene glycoL 3350 [Miralax] 17 g PO DAILY PRN 05/22/20 Cholecalciferol (Vitamin D3) [Vitamin D3] 2,000 unit PO DAILY 01/13/21 DULoxetine [Cymbalta] 30 mg PO DAILY 01/13/21 Metoprolol Succinate [Toprol Xl] 25 mg PO DAILY 01/13/21 Potassium Chloride [Klor-Con 10] 40 meq PO BID 01/13/21 Promethazine [Phenergan] 25 mg PO Q4H PRN 01/13/21 Sotalol HCl [Betapace] 80 mg PO DAILY 01/13/21 Warfarin [Coumadin] 2.5 mg PO UD 01/13/21 allopurinoL [Zyloprim] 200 mg PO DAILY 01/13/21 Objective - Vital Signs/Intake & Output Vital Signs: Vital Signs x48h Temp Pulse Pulse Resp BP Pulse Ox 01/15/21 10:11 92 22 115/92 H 01/15/21 08:03 36.4 C L 98 18 112/81 H 96 Intake & Output: Intake & Output 01/12/21 01/13/21 01/14/21 01/15/21 23:59 23:59 23:59 23:59 Intake Total 418 2422 1450 1640 Output Total 1175 Balance 418 2422 275 1640 - Objective General Appearance: positive: Alert, Lethargic Eyes Bilateral: positive: Normal inspection, No lid inflammation ENT: positive: ENT inspection nml. negative: Purulent nasal drainage Neck: positive: Nml inspection, Trachea midline. negative: Thyromegaly, Tracheal deviation Respiratory: positive: Chest non-tender, Rhonchi. negative: Breath sounds nml, Wheezes Cardiovascular: positive: Regular rate & rhythm, No murmur. negative: Tach ycardia, Bradycardia, Systolic murmur, Diastolic murmur Peripheral Pulses: 2+ Radial (R), 2+ Radial (L) Abdomen: positive: Non-tender, Nml bowel sounds, No distention. negative: Tenderness Back: positive: Nml inspection Skin: positive: Warm, Dry. negative: Cyanosis Extremities: positive: Non-tender. negative: Calf tenderness Neurologic/Psychiatric: positive: Sensation nml. negative: Weakness, Sensory loss, Facial droop, Slurred/abnml speech - Lab Results Fish Bones: 01/15/21 05:10 01/15/21 05:10 Other Labs: Lab Results x24hrs 01/15/21 01/15/21 01/15/21 Range/Units 05:10 05:10 05:10 WBC 5.2 (4.8-10.8) x10^3/uL RBC 3.68 L (4.70-6.10) 10^6/uL Hgb 12.3 L (14.0-18.0) g/dL Hct 38.2 L (42.0-52.0) % MCV 103.8 H (80.0-94.0) fL MCH 33.4 H (27.0-31.0) pg MCHC 32.2 (32.0-36.0) g/dL RDW 15.9 H (12.0-15.0) % Plt Count 147 (130-450) 10^3/uL MPV 10.3 (7.4-11.4) fL Neut # (Auto) 3.8 (1.5-6.6) 10^3/uL Lymph # (Auto) 0.8 L (1.5-3.5) 10^3/uL [place] # (Auto) 0.6 (0.0-1.0) 10^3/uL Eos # (Auto) 0.0 (0.0-0.7) 10^3/uL Baso # (Auto) 0.0 (0.0-0.1) 10^3/uL Absolute Nucleated RBC 0.00 x10^3/uL Nucleated RBC % 0.0 /100WBC PT 13.9 H (9.9-12.6) secs INR 1.3 H (0.8-1.2) Sodium 138 (135-145) mmol/L Potassium 2.8 L (3.5-5.0) mmol/L Chloride 101 (101-111) mmol/L Carbon Dioxide 28 (21-32) mmol/L Anion Gap 9.0 (6-13) BUN 36 H (6-20) mg/dL Creatinine 1.1 (0.6-1.2) mg/dL Estimated GFR (MDRD) 64 L (>89) Glucose 137 H (70-100) mg/dL Calcium 9.6 (8.5-10.3) mg/dL Magnesium 2.0 (1.7-2.8) mg/dL ABX Reporting Has patient been on IV antibiotics over the past 48 hours?: Yes Assessment/Plan - Problem List (1) Aspiration pneumonia Impression: 01/15 Patient needed 2 L oxygen to support his O2 sats 96%, Present mild bilaterally Crackles lung sounds, We will continue Zosyn antibiotics for patient aspiration pneumonia, start on IV lasix. Patient's plan possible hospice for patient, otherwise we will order chest x-ray for patient. 01/14 Patient's reported patient had a significant aspiration in the home. Chest x-ray show bilaterally mild pneumonia, Patient also present cough. We will start with Zosyn, intravenous IV fluids, dysphagia pured diet. Nurse for aspiration precaution (2) Hyponatremia Assessment/Plan: 01/14 resolved pt's Sodium is 130, and his baseline is approximately 132, Improved. We will continue hold his home diuretics and spironolactone. Patient also has orthostatic hypotension, we will try to give very gently intravenous IV fluids. Continue medical laboratory scientist and vital signs monitor (3)dehydration 01/15 Patient had 2 L of IV fluids in 24 hours, creatinine is a 1.1 from 1.6 on yesterday, now IVF now, continue lab monitor and vital monitor Patient Clinically present significant dehydration, patient takes 300 mg Torsemide Daily in the home. We will give patient intravenous IV fluids, as a precaution fluid overloaded. Patient has history of restrictive cardiomyopathy. Echo show with mild reduced EF otherwise it is unremarkable (4)AMS 01/15 improved. pt is more alert today. 01/14 Today patient response slow but patient is a late, he still can answer the question, Patient's blood pressure also is low side. We will order CT of the head to rule out stroke Or other abnormality. neuro check (5) hypotension 01/15 improved, pt had normal arrange blood pressure 01/14 pt Present hypotension. We will hold patient blood pressure Medications, give pt intravenous IV fluids, Fall precautions. Echo show with mild reduced EF otherwise it is unremarkable (6)generalized weakness Patient Also present generalized weakness, multiple factors could contribute, Including orthostatic hypotension, hyponatremia, history of cardiomyopathy. We will consult with PT and OT, And treat underlying facts. (7) History of restrictive cardiomyopathy Conclusion/Plan: Echo study Echo show with mild reduced EF otherwise it is unremarkable. pt has history of restrictive cardiomyopathy. patient does not appear to be in heart failure at this time given his near normal BNP and mild edema. We will hold his home Lasix and spironolactone given the hyponatremia we will gently hydrate him (8) CKD (chronic kidney disease), stage III Conclusion/Plan: 01/15 improved creatinine is 1.1 on today. His renal function is currently at baseline with a creatinine of 1.5. continue monitor his renal function while he is hospitalized. (9) atrial fibrillation Conclusion/Plan: pt has slight elevated HR and pt had afib now with hx of paroxysmal afib, will continue sotalol after pt's BP control, continue Digoxin His INR is subtherapeutic. continue Coumadin. continue PT/INR check (10) Physical deconditioning Conclusion/Plan: agree pt has physical deconditioning condition now. pt is unfortunately declining from a physical standpoint due to his severe arthritis/gout. He has had a further acute decline due to recent surgical intervention. pt is consulted with PT/OT today. pt prefers to go home with physical therapy or other than a long term facility as needed (11) Vivid dream Conclusion/Plan: pt is alert and oriented on today. He has been having vivid dreams which I suspect is related to the Wellbutrin which she has since discontinued. The oxycodone may have also been contributing. We will continue to hold both of these. (12) Osteoarthritis Conclusion/Plan: continue Tylenol on today. pt unfortunately has significant osteoarthritis with multiple joint involvement. We will continue with Tylenol as needed for pain control. We will hold the oxycodone given his recent vivid dreams. We will avoid NSAIDs given his CKD.
--- NOTE | 2021-01-15 16:36 | XRAY Report ---
PROCEDURE: Chest 1 View X-Ray INDICATIONS: SOB TECHNIQUE: One view of the chest was acquired. COMPARISON: 01/14/2021 chest x-ray FINDINGS: Surgical changes and devices: None. Lungs and pleura: No pleural effusions or pneumothorax. Decreased, mild bilateral perihilar opacity. Mediastinum: Mediastinal contours appear normal. Heart size is normal. Bones and chest wall: No suspicious bony lesions. Overlying soft tissues appear unremarkable. IMPRESSION: Resolving bilateral pneumonia. Reviewed by: Rupesh Ferraro MD on 01/15/2021 4:34 PM PDT Approved by: Rupesh Ferraro MD on 01/15/2021 4:34 PM PDT Station ID: [id number]
[2021-01-15] MEDS: TAMSULOSIN 0.4 MG CAPSULE PO SCH (21:09)
[2021-01-16] MEDS: SODIUM CHLORIDE FLUSH 0.9% 10 ML SYRINGE IVP SCH ×3 (00:49→16:51)
[2021-01-16] MEDS: PIPERACILLIN/TAZOBACTAM 3.375 GM in SODIUM CHLORIDE 0.9% MINIBAG 100 ML IV SCH (06:22)
[2021-01-16 07:14] LABS: BASOPHILS % (AUTO) 0.4 %; EOSINOPHILS # (AUTO) 0.1 10^3/uL (0.0-0.7); EOSINOPHILS % (AUTO) 0.8 %; HCT - HEMATOCRIT 39.5 % (42.0-52.0); HGB - HEMOGLOBIN 12.7 g/dL (14.0-18.0); LYMPHOCYTES # (AUTO) 0.9 10^3/uL (1.5-3.5); LYMPHOCYTES % (AUTO) 11.5 %; MEAN CORPUSCULAR HEMOGLOBIN 34.3 pg (27.0-31.0); MEAN CORPUSCULAR HGB CONC 32.2 g/dL (32.0-36.0); MEAN CORPUSCULAR VOLUME 106.8 fL (80.0-94.0); MEAN PLATELET VOLUME 10.9 fL (7.4-11.4); MONOCYTES # (AUTO) 0.8 10^3/uL (0.0-1.0); MONOCYTES % (AUTO) 10.6 %; NEUTROPHILS # (AUTO) 5.7 10^3/uL (1.5-6.6); NEUTROPHILS % (AUTO) 74.9 %; PLT - PLATELET COUNT 152 10^3/uL (130-450); RED CELL DISTRIBUTION WIDTH 15.9 % (12.0-15.0); WHITE BLOOD COUNT 7.6 x10^3/uL (4.8-10.8)
[2021-01-16 07:17] LABS: CALCIUM 9.5 mg/dL (8.5-10.3); MAGNESIUM 1.9 mg/dL (1.7-2.8); POTASSIUM 3.5 mmol/L (3.5-5.0)
[2021-01-16 07:45] LABS: DIGOXIN 0.3 ng/mL
[2021-01-16 07:52] LABS: INR 1.3 (0.8-1.2); PT - PROTHROMBIN TIME 14.5 secs (9.9-12.6)
[2021-01-16] MEDS: SACCHAROMYCES BOULARDII 250 MG CAPSULE PO SCH ×2 (08:21→16:48)
[2021-01-16] MEDS ORDERED: METOPROLOL SUCCINATE 25 MG TABLET PO SCH (09:00)
[2021-01-16] MEDS: DIGOXIN 125 MCG TABLET PO SCH (11:12)
[2021-01-16] MEDS: DULoxetine 20 MG CAPSULE PO SCH (11:12)
[2021-01-16] MEDS: CHOLECALCIFEROL 25 MCG TABLET PO SCH (11:12)
[2021-01-16] MEDS: PANTOPRAZOLE 40 MG TABLET PO SCH (11:12)
[2021-01-16] MEDS: SOTALOL 80 MG TABLET PO SCH ×2 (11:13→21:00)
[2021-01-16] MEDS: predniSONE 5 MG TABLET PO SCH (11:13)
[2021-01-16] MEDS: METOPROLOL SUCCINATE 25 MG TABLET PO SCH (11:15)
[2021-01-16] MEDS: AMOX/CLAV 875 MG/125 MG TABLET PO SCH ×2 (12:40→21:01)
--- NOTE | 2021-01-16 12:41 | PROVIDER PROGRESS NOTE ---
Assessment/Plan - Problem List (3) Atrial fibrillation with rapid ventricular response Assessment/Plan: Patient has hx of afib, increase Digoxin dosage to 125 mcg daily, resume home Metoprolol, continue sotalol, Continue telemetry and vital signs monitor. Patient blood pressure is more stable. Continue Coumadin, continue check PT and INR (2) Aspiration pneumonia Impression: 01/16 97% sats on room air. Chest x-ray show resolving pneumonia, Switch intravenous Zosyn to Augmentin, patient has aspiration pneumonia 01/15 Patient needed 2 L oxygen to support his O2 sats 96%, Present mild bilaterally Crackles lung sounds, We will continue Zosyn antibiotics for pat ient aspiration pneumonia, start on IV lasix. Patient's plan possible hospice for patient, otherwise we will order chest x-ray for patient. 01/14 Patient's reported patient had a significant aspiration in the home. Chest x-ray show bilaterally mild pneumonia, Patient also present cough. We will start with Zosyn, intravenous IV fluids, dysphagia pured diet. Nurse for aspiration precaution (3) Hyponatremia Assessment/Plan: 01/14 resolved pt's Sodium is 130, and his baseline is approximately 132, Improved. We will continue hold his home diuretics and spironolactone. Patient also has orthostatic hypotension, we will try to give very gently intravenous IV fluids. Continue laboratory geneticist and vital signs monitor (4)dehydration / greatly improved, creatinine 1.0 01/15 Patient had 2 L of IV fluids in 24 hours, creatinine is a 1.1 from 1.6 on yesterday, now IVF now, continue lab monitor and vital monitor Patient Clinically present significant dehydration, patient takes 300 mg Torsemide Daily in the home. We will give patient intravenous IV fluids, as a precaution fluid overloaded. Patient has history of restrictive cardiomyopathy. Echo show with mild reduced EF otherwise it is unremarkable (5)AMS 42, greatly improved, more alert. 01/15 improved. pt is more alert today. 01/14 Today patient response slow but patient is a late, he still can answer the question, Patient's blood pressure also is low side. We will order CT of the head to rule out stroke Or other abnormality. neuro check (6) hypotension 4/2 improved. BP 111/81 01/15 improved, pt had normal arrange blood pressure 01/14 pt Present hypotension. We will hold patient blood pressure Medications, give pt intravenous IV fluids, Fall precautions. Echo show with mild reduced EF otherwise it is unremarkable (7)generalized weakness / PT recommended to SNF Patient Also present generalized weakness, multiple factors could contribute, Including orthostatic hypotension, hyponatremia, history of cardiomyopathy. We will consult with PT and OT, And treat underlying facts. (8) History of restrictive cardiomyopathy Conclusion/Plan: Echo study Echo show with mild reduced EF otherwise it is unremarkable. pt has history of restrictive cardiomyopathy. patient does not appear to be in heart failure at this time given his near normal BNP and mild edema. We will hold his home Lasix and spironolactone given the hyponatremia we will gently hydrate him (9) CKD (chronic kidney disease), stage III Conclusion/Plan: 01/16 improved creatinine is 1 on today. His renal function is currently at baseline with a creatinine of 1.5. continue monitor his renal function while he is hospitalized. (10) Physical deconditioning Conclusion/Plan: 01/16 I did not meed patient on today, per social work report, pt's want pt to be d/c to SNF, not consider hospice care at this point pt has physical deconditioning condition now. pt is unfortunately declining from a physical standpoint due to his severe arthritis/gout. He has had a further acute decline due to recent surgical intervention. pt is consulted with PT/OT today. pt prefers to go home with physical therapy or other than a correction facility as needed (11) Vivid dream Conclusion/Plan: pt is alert and oriented on today. He has been having vivid dreams which I suspect is related to the Wellbutrin which she has since discontinued. The oxycodone may have also been contributing. We will continue to hold both of these. (12) Osteoarthritis Conclusion/Plan: continue Tylenol on today. pt unfortunately has significant osteoarthritis with multiple joint involvement. We will continue with Tylenol as needed for pain control. We will hold the oxycodone given his recent vivid dreams. We will avoid NSAIDs given his CKD. - Current Meds Current Meds: Current Medications Generic Name Dose Route Start Last Admin Trade Name Freq PRN Reason Stop Dose Admin Cholecalciferol 50 mcg 01/13/21 09:00 01/16/21 11:12 Cholecalciferol 25 Mcg Tablet PO 50 mcg DAILY BIN Administration Digoxin 125 mcg 01/14/21 08:00 01/16/21 11:12 Digoxin 125 Mcg Tablet PO 125 mcg DAILY BIN Administration Duloxetine HCl 20 mg 01/13/21 09:00 01/16/21 11:12 Duloxetine 20 Mg Capsule PO 20 mg DAILY BIN Administration Metoprolol Succinate 25 mg 01/16/21 09:00 01/16/21 11:15 Metoprolol Succinate 25 Mg Tablet PO 25 mg DAILY BIN Administration Pantoprazole Sodium 40 mg 01/13/21 09:00 01/16/21 11:12 Pantoprazole 40 Mg Tablet PO 40 mg DAILY BIN Administration Prednisone 5 mg 01/13/21 09:00 01/16/21 11:13 Prednisone 5 Mg Tablet PO 5 mg DAILY BIN Administration Saccharomyces Boulardii 250 mg 01/14/21 17:00 01/16/21 08:21 Saccharomyces Boulardii 250 Mg Capsule PO 250 mg BIDWM BIN Administration Sodium Chloride 10 ml 01/13/21 01:00 01/16/21 11:15 Sodium Chloride Flush 0.9% 10 Ml Syringe IVP 10 ml 0100,0900,1700 BIN Administration Sotalol HCl 80 mg 01/14/21 09:00 01/16/21 11:13 Sotalol 80 Mg Tablet PO 80 mg DAILY BIN Administration Sotalol HCl 40 mg 01/14/21 21:00 01/15/21 21:09 Sotalol 80 Mg Tablet PO 40 mg QPM BIN Administration Tamsulosin HCl 0.4 mg 01/12/21 21:00 01/15/21 21:09 Tamsulosin 0.4 Mg Capsule PO 0.4 mg HS BIN Administration - Lab Result Fish Bone Diagrams: 01/16/21 06:37 01/16/21 06:37 - Additional Planning My Orders: My Active Orders 01/16/21 09:00 Metoprolol Succinate [Toprol Xl] 25 mg PO DAILY 01/16/21 12:00 Amox/Clav 875/125 [Augmentin 875/125 Tab] 1 tab PO BID 01/16/21 14:00 Warfarin [Coumadin] 2.5 mg PO [id number] 01/17/21 05:00 PT WITH INR [COAG] DAILYLAB 01/18/21 05:00 PT WITH INR [COAG] DAILYLAB Subjective - Subjective Patient Reports: Resting Comfortably Objective Vital Signs: Vital Signs - 24 hr 01/15/21 01/15/21 01/15/21 17:42 20:15 21:05 Temperature 36.7 C 36.4 C L 36.4 C L Heart Rate 110 H Heart Rate [ Brachial] Heart Rate [ 119 H 101 H Monitoring electrodes] Respiratory 24 22 21 Rate Blood Pressure 100/68 104/83 H [Left Brachial artery] O2 Saturation 97 97 96 01/16/21 01/16/21 01/16/21 01:00 05:00 08:22 Temperature 36.3 C L 36.5 C 36.4 C L Heart Rate Heart Rate [ 109 H 107 H 103 H Brachial] Heart Rate [ Monitoring electrodes] Respiratory 14 18 18 Rate Blood Pressure 97/78 107/76 117/85 H [Left Brachial artery] O2 Saturation 95 95 97 01/16/21 11:40 Temperature 36.7 C Heart Rate Heart Rate [ 112 H Brachial] Heart Rate [ Monitoring electrodes] Respiratory 20 Rate Blood Pressure 111/81 H [Left Brachial artery] O2 Saturation 97 Oxygen O2 Source Room air I&O (Last 24 Hrs): Intake and Output Totals x24h 01/14/21 01/15/21 01/16/21 23:59 23:59 23:59 Intake Total 1450 2330 1460 Output Total 1175 Balance 275 2330 1460 General: Alert, Oriented x3, Cooperative, No acute distress HEENT: Atraumatic Neck: Supple Lymphatic: no adenopathy Neuro: Alert, Non Focal Cardiovascular: Regular rate, Normal S1, Normal S2 Respiratory: Chest non-tender, No respiratory distress Abdomen: Normal bowel sounds, Soft Extremities: Normal pulses - Results Results: Laboratory Results WBC 7.6 x10^3/uL (4.8-10.8) 01/16/21 06:37 RBC 3.70 10^6/uL (4.70-6.10) L 01/16/21 06:37 Hgb 12.7 g/dL (14.0-18.0) L 01/16/21 06:37 Hct 39.5 % (42.0-52.0) L 01/16/21 06:37 MCV 106.8 fL (80.0-94.0) H 01/16/21 06:37 MCH 34.3 pg (27.0-31.0) H 01/16/21 06:37 MCHC 32.2 g/dL (32.0-36.0) 01/16/21 06:37 RDW 15.9 % (12.0-15.0) H 01/16/21 06:37 Plt Count 152 10^3/uL (130-450) 01/16/21 06:37 MPV 10.9 fL (7.4-11.4) 01/16/21 06:37 Neut # (Auto) 5.7 10^3/uL (1.5-6.6) 01/16/21 06:37 Lymph # (Auto) 0.9 10^3/uL (1.5-3.5) L 01/16/21 06:37 [place] # (Auto) 0.8 10^3/uL (0.0-1.0) 01/16/21 06:37 Eos # (Auto) 0.1 10^3/uL (0.0-0.7) 01/16/21 06:37 Baso # (Auto) 0.0 10^3/uL (0.0-0.1) 01/16/21 06:37 Absolute Nucleated RBC 0.00 x10^3/uL 01/16/21 06:37 Nucleated RBC % 0.0 /100WBC 01/16/21 06:37 PT 14.5 secs (9.9-12.6) H 01/16/21 06:37 INR 1.3 (0.8-1.2) H 01/16/21 06:37 Bld Gas Analysis Time 0901/14/21 09:05 Sample Site RIGHT RADIAL 01/14/21 09:05 ABG pH 7.48 (7.35-7.45) H 01/14/21 09:05 ABG pCO2 40 mmHg (34-45) 01/14/21 09:05 ABG pO2 72 mmHg (80-100) L 01/14/21 09:05 ABG HCO3 29.0 mmol/L (22.0-26.0) H 01/14/21 09:05 ABG Total CO2 30.2 MMOL/L (21.0-29.0) H 01/14/21 09:05 ABG O2 Saturation 95 % (94-98) 01/14/21 09:05 ABG Base Excess 5.7 mmol/L (-2.0-3.0) H 01/14/21 09:05 Mo Test POSITIVE 01/14/21 09:05 Room Air YES 01/14/21 09:05 Sodium 138 mmol/L (135-145) 01/16/21 06:37 Potassium 3.5 mmol/L (3.5-5.0) 01/16/21 06:37 Chloride 101 mmol/L (101-111) 01/16/21 06:37 Carbon Dioxide 26 mmol/L (21-32) 01/16/21 06:37 Anion Gap 11.0 (6-13) 01/16/21 06:37 BUN 31 mg/dL (6-20) H 01/16/21 06:37 Creatinine 1.0 mg/dL (0.6-1.2) 01/16/21 06:37 Estimated GFR (MDRD) 72 (>89) L 01/16/21 06:37 Glucose 166 mg/dL (70-100) H 01/16/21 06:37 Lactic Acid 1.3 mmol/L (0.5-2.2) 01/14/21 08:43 Calcium 9.5 mg/dL (8.5-10.3) 01/16/21 06:37 Magnesium 1.9 mg/dL (1.7-2.8) 01/16/21 06:37 Total Bilirubin 1.1 mg/dL (0.2-1.0) H 01/12/21 16:40 AST 26 IU/L (10-42) 01/12/21 16:40 ALT 27 IU/L (10-60) 01/12/21 16:40 Alkaline Phosphatase 65 IU/L (42-121) 01/12/21 16:40 Troponin I High Sens 8.4 ng/L (2.3-19.7) 01/14/21 08:43 B-Natriuretic Peptide 128 pg/mL (5-100) H 01/12/21 16:40 Total Protein 6.7 g/dL (6.7-8.2) 01/12/21 16:40 Albumin 3.8 g/dL (3.2-5.5) 01/12/21 16:40 Globulin 2.9 g/dL (2.1-4.2) 01/12/21 16:40 Albumin/Globulin Ratio 1.3 (1.0-2.2) 01/12/21 16:40 TSH 1.77 uIU/mL (0.34-5.60) 01/12/21 16:40 Urine Color YELLOW 01/12/21 23:09 Urine Clarity CLEAR (CLEAR) 01/12/21 23:09 Urine pH 7.0 PH (5.0-7.5) 01/12/21 23:09 Ur Specific [place] 1.010 (1.002-1.030) 01/12/21 23:09 Urine Protein NEGATIVE mg/dL (NEGATIVE) 01/12/21 23:09 Urine Glucose (UA) NEGATIVE mg/dL (NEGATIVE) 01/12/21 23:09 Urine Ketones NEGATIVE mg/dL (NEGATIVE) 01/12/21 23:09 Urine Occult Blood NEGATIVE (NEGATIVE) 01/12/21 23:09 Urine Nitrite NEGATIVE (NEGATIVE) 01/12/21 23:09 Urine Bilirubin NEGATIVE (NEGATIVE) 01/12/21 23:09 Urine Urobilinogen 0.2 (NORMAL) E.U./dL (NORMAL) 01/12/21 23:09 Ur Leukocyte Esterase NEGATIVE (NEGATIVE) 01/12/21 23:09 Ur Microscopic Review NOT INDICATED 01/12/21 23:09 Urine Culture Comments NOT INDICATED 01/12/21 23:09 Ur Random Chloride 68 mmol/L 01/12/21 23:09 Urine Sodium 58.0 mmol/L 01/12/21 23:09 Nasal Adenovirus (PCR) NOT DETECTED 01/12/21 17:15 Nasal B. parapertussis DNA (PCR) NOT DETECTED 01/12/21 17:15 Nasal Coronavir 229E PCR NOT DETECTED 01/12/21 17:15 Nasal Coronavir HKU1 PCR NOT DETECTED 01/12/21 17:15 Nasal Coronavir NL63 PCR NOT DETECTED 01/12/21 17:15 Nasal Coronavir OC43 PCR NOT DETECTED 01/12/21 17:15 Nasal Enterovir/Rhinovir PCR NOT DETECTED 01/12/21 17:15 Nasal Influenza B PCR NOT DETECTED 01/12/21 17:15 Nasal Influenza A PCR NOT DETECTED 01/12/21 17:15 Nasal Parainfluen 1 PCR NOT DETECTED 01/12/21 17:15 Nasal Parainfluen 2 PCR NOT DETECTED 01/12/21 17:15 Nasal Parainfluen 3 PCR NOT DETECTED 01/12/21 17:15 Nasal Parainfluen 4 PCR NOT DETECTED 01/12/21 17:15 Nasal RSV (PCR) NOT DETECTED 01/12/21 17:15 Nasal B.pertussis DNA PCR NOT DETECTED 01/12/21 17:15 Nasal C.pneumoniae (PCR) NOT DETECTED 01/12/21 17:15 Victorino Human Metapneumo PCR NOT DETECTED 01/12/21 17:15 Nasal M.pneumoniae (PCR) NOT DETECTED 01/12/21 17:15 Nasal SARS-CoV-2 (PCR) NOT DETECTED 01/12/21 17:15 Last Dose Date 01/15/21 01/16/21 06:37 Last Dose Time 10:04 01/16/21 06:37 Digoxin 0.3 ng/mL 01/16/21 06:37 Urine Opiates Screen NEGATIVE (NEGATIVE) 01/14/21 09:03 Ur Oxycodone Screen NEGATIVE (NEGATIVE) 01/14/21 09:03 Urine Methadone Screen NEGATIVE (NEGATIVE) 01/14/21 09:03 Ur Propoxyphene Screen NEGATIVE (NEGATIVE) 01/14/21 09:03 Ur Barbiturates Screen NEGATIVE (NEGATIVE) 01/14/21 09:03 Ur Tricyclics Screen NEGATIVE (NEGATIVE) 01/14/21 09:03 Ur Phencyclidine Scrn NEGATIVE (NEGATIVE) 01/14/21 09:03 Ur Amphetamine Screen NEGATIVE (NEGATIVE) 01/14/21 09:03 U Methamphetamines Scrn NEGATIVE (NEGATIVE) 01/14/21 09:03 U Benzodiazepines Scrn NEGATIVE (NEGATIVE) 01/14/21 09:03 Urine Cocaine Screen NEGATIVE (NEGATIVE) 01/14/21 09:03 U Cannabinoids Screen NEGATIVE (NEGATIVE) 01/14/21 09:03 Sepsis Event Note (H) - Evaluation Current Stage of Sepsis: Ruled out ABX Reporting Has patient been on IV antibiotics over the past 48 hours?: Yes Current Medications - Current Medications Current Medications: Active Medications Acetaminophen (Acetaminophen 325 Mg Tablet) 650 mg PO Q4HR PRN PRN Reason: Pain 1 to 4 Amoxicillin/Clavulanate Potassium (Amox/Clav 875 Mg/125 Mg Tablet) 1 tab PO BID [facility] Last Admin: 01/16/21 12:40 Dose: 1 tab Documented by: Cholecalciferol (Cholecalciferol 25 Mcg Tablet) 50 mcg PO DAILY [facility] Last Admin: 01/16/21 11:12 Dose: 50 mcg Documented by: Digoxin (Digoxin 125 Mcg Tablet) 125 mcg PO DAILY [facility] Last Admin: 01/16/21 11:12 Dose: 125 mcg Documented by: Duloxetine HCl (Duloxetine 20 Mg Capsule) 20 mg PO DAILY [facility] Last Admin: 01/16/21 11:12 Dose: 20 mg Documented by: Metoprolol Succinate (Metoprolol Succinate 25 Mg Tablet) 25 mg PO DAILY [facility] Last Admin: 01/16/21 11:15 Dose: 25 mg Documented by: Metoprolol Tartrate (Metoprolol 5 Mg/5 Ml Vial) 5 mg IVP Q6H PRN PRN Reason: Tachycardia Pantoprazole Sodium (Pantoprazole 40 Mg Tablet) 40 mg PO DAILY [facility] Last Admin: 01/16/21 11:12 Dose: 40 mg Documented by: Prednisone (Prednisone 5 Mg Tablet) 5 mg PO DAILY [facility] Last Admin: 01/16/21 11:13 Dose: 5 mg Documented by: Saccharomyces Boulardii (Saccharomyces Boulardii 250 Mg Capsule) 250 mg PO BIDWM [facility] Last Admin: 01/16/21 08:21 Dose: 250 mg Documented by: Sodium Chloride (Sodium Chloride Flush 0.9% 10 Ml Syringe) 10 ml IVP PRN PRN PRN Reason: NEEDED PER PROVIDER ORDERS Sodium Chloride (Sodium Chloride Flush 0.9% 10 Ml Syringe) 10 ml IVP 0100,0900,1700 [facility] Last Admin: 01/16/21 11:15 Dose: 10 ml Documented by: Sotalol HCl (Sotalol 80 Mg Tablet) 80 mg PO DAILY [facility] Last Admin: 01/16/21 11:13 Dose: 80 mg Documented by: Sotalol HCl (Sotalol 80 Mg Tablet) 40 mg PO QPM [facility] Last Admin: 01/15/21 21:09 Dose: 40 mg Documented by: Tamsulosin HCl (Tamsulosin 0.4 Mg Capsule) 0.4 mg PO [facility] Last Admin: 01/15/21 21:09 Dose: 0.4 mg Documented by: Warfarin Sodium (Warfarin 2.5 Mg Tablet) 2.5 mg PO [id number] [facility] Torsemide 200 mg PO QPM 05/03/14 Isosorbide Mononitrate ER [Imdur] 60 mg PO DAILY 07/12/16 Colchicine 0.6 mg PO DAILY 01/10/20 Loperamide [Imodium] 2 mg PO PRN PRN 01/10/20 Sotalol [Betapace] 40 mg PO QPM 01/10/20 Torsemide 100 mg PO DAILY 01/10/20 predniSONE [Prednisone] 5 mg PO DAILY 01/10/20 Calcium Citrate 1,000 mg PO DAILY 05/22/20 Digoxin 62.5 mcg PO DAILY 05/22/20 Pantoprazole [Protonix] 40 mg PO DAILY PRN 05/22/20 Tamsulosin HCl [Flomax] 0.4 mg PO DAILY 05/22/20 metOLazone [Metolazone] 5 mg PO DAILY PRN MDD .Once if weight 174lb, 3tab/wk 05/22/20 polyethylene glycoL 3350 [Miralax] 17 g PO DAILY PRN 05/22/20 Cholecalciferol (Vitamin D3) [Vitamin D3] 2,000 unit PO DAILY 01/13/21 DULoxetine [Cymbalta] 30 mg PO DAILY 01/13/21 Metoprolol Succinate [Toprol Xl] 25 mg PO DAILY 01/13/21 Potassium Chloride [Klor-Con 10] 40 meq PO BID 01/13/21 Promethazine [Phenergan] 25 mg PO Q4H PRN 01/13/21 Sotalol HCl [Betapace] 80 mg PO DAILY 01/13/21 Warfarin [Coumadin] 2.5 mg PO UD 01/13/21 allopurinoL [Zyloprim] 200 mg PO DAILY 01/13/21
[2021-01-16] MEDS ORDERED: WARFARIN 2.5 MG TABLET PO SCH (14:00)
[2021-01-16 18:22] LABS: B. PARAPERTUSSIS- RESP PCR PAN NOT DETECTED; B. PERTUSSIS- RESP PCR PANEL NOT DETECTED; C. PNEUMONIAE- RESP PCR PANEL NOT DETECTED; CORONAVIRUS 229E-RESP PCR NOT DETECTED; CORONAVIRUS HKU1-RESP PCR NOT DETECTED; CORONAVIRUS NL63-RESP PCR NOT DETECTED; CORONAVIRUS OC43-RESP PCR NOT DETECTED; HUMAN METAPNEUMOVIRUS NOT DETECTED; INFLUENZA A- RESP PCR PANEL NOT DETECTED; INFLUENZA B - RESP PCR PANEL NOT DETECTED; M. PNEUMONIAE- RESP PCR PANEL NOT DETECTED; PARAINFLUENZA VIRUS 1 NOT DETECTED; PARAINFLUENZA VIRUS 2 NOT DETECTED; PARAINFLUENZA VIRUS 3 NOT DETECTED; PARAINFLUENZA VIRUS 4 NOT DETECTED; RHINOVIRUS/ENTEROVIRUS NOT DETECTED; RSV- RESP PCR PANEL NOT DETECTED; SARS-CoV-2 -RESP PCR PANEL NOT DETECTED
[2021-01-16] MEDS: TAMSULOSIN 0.4 MG CAPSULE PO SCH (21:01)
[2021-01-17] MEDS: SODIUM CHLORIDE FLUSH 0.9% 10 ML SYRINGE IVP SCH ×4 (00:31→23:40)
[2021-01-17 06:07] LABS: BASOPHILS % (AUTO) 0.3 %; EOSINOPHILS # (AUTO) 0.1 10^3/uL (0.0-0.7); EOSINOPHILS % (AUTO) 1.3 %; INR 1.4 (0.8-1.2); LYMPHOCYTES # (AUTO) 1.1 10^3/uL (1.5-3.5); LYMPHOCYTES % (AUTO) 15.7 %; MEAN CORPUSCULAR HEMOGLOBIN 33.5 pg (27.0-31.0); MEAN CORPUSCULAR HGB CONC 32.4 g/dL (32.0-36.0); MEAN CORPUSCULAR VOLUME 103.4 fL (80.0-94.0); MEAN PLATELET VOLUME 10.8 fL (7.4-11.4); MONOCYTES # (AUTO) 0.6 10^3/uL (0.0-1.0); NEUTROPHILS # (AUTO) 5.2 10^3/uL (1.5-6.6); PLT - PLATELET COUNT 149 10^3/uL (130-450); PT - PROTHROMBIN TIME 15.7 secs (9.9-12.6); RED BLOOD COUNT 3.58 10^6/uL (4.70-6.10); RED CELL DISTRIBUTION WIDTH 15.4 % (12.0-15.0); WHITE BLOOD COUNT 7.1 x10^3/uL (4.8-10.8)
[2021-01-17 06:16] LABS: CALCIUM 9.1 mg/dL (8.5-10.3); CREATININE 0.8 mg/dL (0.6-1.2); POTASSIUM 3.5 mmol/L (3.5-5.0)
[2021-01-17] MEDS ORDERED: methylPREDNISolone SUCCINATE 40 MG/ML VIAL IVP STA (08:03)
[2021-01-17] MEDS: CHOLECALCIFEROL 25 MCG TABLET PO SCH (08:55)
[2021-01-17] MEDS: predniSONE 5 MG TABLET PO SCH (08:55)
[2021-01-17] MEDS: SACCHAROMYCES BOULARDII 250 MG CAPSULE PO SCH ×2 (08:56→16:45)
[2021-01-17] MEDS: PANTOPRAZOLE 40 MG TABLET PO SCH (08:56)
[2021-01-17] MEDS: DIGOXIN 125 MCG TABLET PO SCH (08:56)
[2021-01-17] MEDS: AMOX/CLAV 875 MG/125 MG TABLET PO SCH ×2 (08:56→21:54)
[2021-01-17] MEDS: METOPROLOL SUCCINATE 25 MG TABLET PO SCH (08:57)
[2021-01-17] MEDS: DULoxetine 20 MG CAPSULE PO SCH (08:57)
[2021-01-17] MEDS: SOTALOL 80 MG TABLET PO SCH ×2 (08:57→21:56)
[2021-01-17] MEDS ORDERED: LOPERAMIDE 2 MG CAPSULE PO PRN (17:28)
--- NOTE | 2021-01-17 18:18 | PROVIDER PROGRESS NOTE ---
Subjective - Prog Note Date Prog Note Date: 01/17/21 Prog Note Time: 18:16 - Subjective Subjective: He is sitting at the side of the bed this morning. Noticeably fatigued, trying to cut up his food and feed himself. He does succeed but great effort for h imself. He is able to get up to walk to the bathroom, but again exhausted when he sits back down again. Current Medications - Current Medications Current Medications: Active Medications Acetaminophen (Acetaminophen 325 Mg Tablet) 650 mg PO Q4HR PRN PRN Reason: Pain 1 to 4 Amoxicillin/Clavulanate Potassium (Amox/Clav 875 Mg/125 Mg Tablet) 1 tab PO BID [facility] Stop: 01/18/21 11:59 Last Admin: 01/17/21 08:56 Dose: 1 tab Documented by: Cholecalciferol (Cholecalciferol 25 Mcg Tablet) 50 mcg PO DAILY [facility] Last Admin: 01/17/21 08:55 Dose: 50 mcg Documented by: Digoxin (Digoxin 125 Mcg Tablet) 125 mcg PO DAILY [facility] Last Admin: 01/17/21 08:56 Dose: 125 mcg Documented by: Duloxetine HCl (Duloxetine 20 Mg Capsule) 20 mg PO DAILY [facility] Last Admin: 01/17/21 08:57 Dose: 20 mg Documented by: Loperamide HCl (Loperamide 2 Mg Capsule) 2 mg PO QID PRN PRN Reason: Diarrhea Last Admin: 01/17/21 18:07 Dose: 2 mg Documented by: Metoprolol Succinate (Metoprolol Succinate 25 Mg Tablet) 25 mg PO DAILY [facility] Last Admin: 01/17/21 08:57 Dose: 25 mg Documented by: Metoprolol Tartrate (Metoprolol 5 Mg/5 Ml Vial) 5 mg IVP Q6H PRN PRN Reason: Tachycardia Pantoprazole Sodium (Pantoprazole 40 Mg Tablet) 40 mg PO DAILY [facility] Last Admin: 01/17/21 08:56 Dose: 40 mg Documented by: Prednisone (Prednisone 5 Mg Tablet) 5 mg PO DAILY [facility] Last Admin: 01/17/21 08:55 Dose: 5 mg Documented by: Saccharomyces Boulardii (Saccharomyces Boulardii 250 Mg Capsule) 250 mg PO BIDWM [facility] Last Admin: 01/17/21 16:45 Dose: 250 mg Documented by: Sodium Chloride (Sodium Chloride Flush 0.9% 10 Ml Syringe) 10 ml IVP PRN PRN PRN Reason: NEEDED PER PROVIDER ORDERS Sodium Chloride (Sodium Chloride Flush 0.9% 10 Ml Syringe) 10 ml IVP 0100,0900,1700 [facility] Last Admin: 01/17/21 16:46 Dose: 10 ml Documented by: Sotalol HCl (Sotalol 80 Mg Tablet) 80 mg PO DAILY [facility] Last Admin: 01/17/21 08:57 Dose: 80 mg Documented by: Sotalol HCl (Sotalol 80 Mg Tablet) 40 mg PO QPM [facility] Last Admin: 01/16/21 21:00 Dose: 40 mg Documented by: Tamsulosin HCl (Tamsulosin 0.4 Mg Capsule) 0.4 mg PO HS [facility] Last Admin: 01/16/21 21:01 Dose: 0.4 mg Documented by: Warfarin Sodium (Warfarin 2.5 Mg Tablet) 2.5 mg PO [id number] [facility] Last Admin: 01/16/21 14:44 Dose: 2.5 mg Documented by: Torsemide 200 mg PO QPM 05/03/14 Isosorbide Mononitrate ER [Imdur] 60 mg PO DAILY 07/12/16 Colchicine 0.6 mg PO DAILY 01/10/20 Loperamide [Imodium] 2 mg PO PRN PRN 01/10/20 Sotalol [Betapace] 40 mg PO QPM 01/10/20 Torsemide 100 mg PO DAILY 01/10/20 predniSONE [Prednisone] 5 mg PO DAILY 01/10/20 Calcium Citrate 1,000 mg PO DAILY 05/22/20 Digoxin 62.5 mcg PO DAILY 05/22/20 Pantoprazole [Protonix] 40 mg PO DAILY PRN 05/22/20 Tamsulosin HCl [Flomax] 0.4 mg PO DAILY 05/22/20 metOLazone [Metolazone] 5 mg PO DAILY PRN MDD .Once if weight 174lb, 3tab/wk 05/22/20 polyethylene glycoL 3350 [Miralax] 17 g PO DAILY PRN 05/22/20 Cholecalciferol (Vitamin D3) [Vitamin D3] 2,000 unit PO DAILY 01/13/21 DULoxetine [Cymbalta] 30 mg PO DAILY 01/13/21 Metoprolol Succinate [Toprol Xl] 25 mg PO DAILY 01/13/21 Potassium Chloride [Klor-Con 10] 40 meq PO BID 01/13/21 Promethazine [Phenergan] 25 mg PO Q4H PRN 01/13/21 Sotalol HCl [Betapace] 80 mg PO DAILY 01/13/21 Warfarin [Coumadin] 2.5 mg PO UD 01/13/21 allopurinoL [Zyloprim] 200 mg PO DAILY 01/13/21 Objective - Vital Signs/Intake & Output Reviewed Vital Signs: Yes Vital Signs: Vital Signs x48h Temp Pulse Pulse Resp BP Pulse Ox 01/17/21 15:49 36.3 C L 96 18 101/65 96 01/17/21 13:42 36.6 C 01/17/21 13:00 35.4 C L 51 L 20 114/80 98 Intake & Output: Intake & Output 01/14/21 01/15/21 01/16/21 01/17/21 23:59 23:59 23:59 23:59 Intake Total 1450 2330 2610 1060 Output Total 1175 Balance 275 2330 2610 1060 - Objective General Appearance: positive: Alert, Mild distress Eyes Bilateral: positive: PERRL, EOMI, Other (Mildly injected sclera, exophthalmos,) ENT: positive: Pharyngeal erythema, Other (Rhinorrhea, nasal tone of voice) Neck: positive: No JVD. negative: Stiff neck Respiratory: positive: Other (Increased respiratory effort and tachypnea with simple active getting up to go to the bathroom on his own). negative: Wheezes (Diminished breath sounds at bases and he gets easily tachypneic), Rales, Rhonchi Cardiovascular: positive: Irregularly irregular, Systolic murmur. negative: Tachycardia (His heart rate is consistently in the 90s), Gallop/S4 Abdomen: positive: Non-tender, No organomegaly, Nml bowel sounds, Other (Protuberant large abdominal pannus). negative: Guarding, Rebound Skin: positive: Warm, Dry, Other (To pull ecchymosis, mainly from top of hand, blood draws. You can see where he is hit his santoyo a few times. No open ulcers. Callused fingers and feet) Extremities: positive: Full ROM, Pedal edema (Trace) Neurologic/Psychiatric: positive: Oriented x3, CN's nml (2-12). negative: Motor nml Comments/Other: Pt. seen x total of 20 min. for functional activity as follows: Pt. supine in bed and performs 5 reps of AROM for B shoulder flexion/straight arm lifts and 10 reps ankle pumps. Pt then instructed in supine to sitting at EOB and performs slowly with SBA, pt voices that he wants to try this movement indep. Once sitting at EOB, pt requires rest break. When ready, pt attempts to scoot to EOB but d/t NWB L wrist, requires Kay with draw sheet to scoot to EOB. With feet on floor and gait belt donned, pt able to perform STS w/ SBA. Pt then able to amb with FWW 5' to b/s chair and lowers to chair with good safety awareness. He is able to reposition himself for comfort in his chair and agrees to remain upright for lunch. - Lab Results Fish Bones: 01/17/21 05:25 01/17/21 05:25 Other Labs: Lab Results x24hrs 01/17/21 01/17/21 01/17/21 Range/Units 05:25 05:25 05:25 WBC 7.1 (4.8-10.8) x10^3/uL RBC 3.58 L (4.70-6.10) 10^6/uL Hgb 12.0 L (14.0-18.0) g/dL Hct 37.0 L (42.0-52.0) % MCV 103.4 H (80.0-94.0) fL MCH 33.5 H (27.0-31.0) pg MCHC 32.4 (32.0-36.0) g/dL RDW 15.4 H (12.0-15.0) % Plt Count 149 (130-450) 10^3/uL MPV 10.8 (7.4-11.4) fL Neut # (Auto) 5.2 (1.5-6.6) 10^3/uL Lymph # (Auto) 1.1 L (1.5-3.5) 10^3/uL Dillon # (Auto) 0.6 (0.0-1.0) 10^3/uL Eos # (Auto) 0.1 (0.0-0.7) 10^3/uL Baso # (Auto) 0.0 (0.0-0.1) 10^3/uL Absolute Nucleated RBC 0.00 x10^3/uL Nucleated RBC % 0.0 /100WBC PT 15.7 H (9.9-12.6) secs INR 1.4 H (0.8-1.2) Sodium 133 L (135-145) mmol/L Potassium 3.5 (3.5-5.0) mmol/L Chloride 97 L (101-111) mmol/L Carbon Dioxide 26 (21-32) mmol/L Anion Gap 10.0 (6-13) BUN 27 H (6-20) mg/dL Creatinine 0.8 (0.6-1.2) mg/dL Estimated GFR (MDRD) 93 (>89) Glucose 146 H (70-100) mg/dL Calcium 9.1 (8.5-10.3) mg/dL Nasal Adenovirus (PCR) Nasal B. parapertussis DNA (PCR) Nasal Coronavir 229E PCR Nasal Coronavir HKU1 PCR Nasal Coronavir NL63 PCR Nasal Coronavir OC43 PCR Nasal Enterovir/Rhinovir PCR Nasal Influenza B PCR Nasal Influenza A PCR Nasal Parainfluen 1 PCR Nasal Parainfluen 2 PCR Nasal Parainfluen 3 PCR Nasal Parainfluen 4 PCR Nasal RSV (PCR) Nasal B.pertussis DNA PCR Nasal C.pneumoniae (PCR) Victorino Human Metapneumo PCR Nasal M.pneumoniae (PCR) Nasal SARS-CoV-2 (PCR) 01/16/21 Range/Units 17:20 WBC (4.8-10.8) x10^3/uL RBC (4.70-6.10) 10^6/uL Hgb (14.0-18.0) g/dL Hct (42.0-52.0) % MCV (80.0-94.0) fL MCH (27.0-31.0) pg MCHC (32.0-36.0) g/dL RDW (12.0-15.0) % Plt Count (130-450) 10^3/uL MPV (7.4-11.4) fL Neut # (Auto) (1.5-6.6) 10^3/uL Lymph # (Auto) (1.5-3.5) 10^3/uL Dillon # (Auto) (0.0-1.0) 10^3/uL Eos # (Auto) (0.0-0.7) 10^3/uL Baso # (Auto) (0.0-0.1) 10^3/uL Absolute Nucleated RBC x10^3/uL Nucleated RBC % /100WBC PT (9.9-12.6) secs INR (0.8-1.2) Sodium (135-145) mmol/L Potassium (3.5-5.0) mmol/L Chloride (101-111) mmol/L Carbon Dioxide (21-32) mmol/L Anion Gap (6-13) BUN (6-20) mg/dL Creatinine (0.6-1.2) mg/dL Estimated GFR (MDRD) (>89) Glucose (70-100) mg/dL Calcium (8.5-10.3) mg/dL Nasal Adenovirus (PCR) NOT DETECTED Nasal B. parapertussis DNA (PCR) NOT DETECTED Nasal Coronavir 229E PCR NOT DETECTED Nasal Coronavir HKU1 PCR NOT DETECTED Nasal Coronavir NL63 PCR NOT DETECTED Nasal Coronavir OC43 PCR NOT DETECTED Nasal Enterovir/Rhinovir PCR NOT DETECTED Nasal Influenza B PCR NOT DETECTED Nasal Influenza A PCR NOT DETECTED Nasal Parainfluen 1 PCR NOT DETECTED Nasal Parainfluen 2 PCR NOT DETECTED Nasal Parainfluen 3 PCR NOT DETECTED Nasal Parainfluen 4 PCR NOT DETECTED Nasal RSV (PCR) NOT DETECTED Nasal B.pertussis DNA PCR NOT DETECTED Nasal C.pneumoniae (PCR) NOT DETECTED Victorino Human Metapneumo PCR NOT DETECTED Nasal M.pneumoniae (PCR) NOT DETECTED Nasal SARS-CoV-2 (PCR) NOT DETECTED ABX Reporting Has patient been on IV antibiotics over the past 48 hours?: No Sepsis Event Note (H) - Evaluation Current Stage of Sepsis: Ruled out Assessment/Plan - Problem List (1) Physical deconditioning Impression: Simple task such as getting up to go to the bathroom, or trying to feed himself resulted in exhaustion and tachypnea. Physical therapy is working with him. He is a candidate for [facility] facility placement. He has been switched from IV antibiotics to oral antibiotics yesterday. Will discharge tomorrow to [facility] facility. (2) Aspiration pneumonia Impression: (2) Aspiration pneumonia Impression: He presented as severe generalized weakness that was present for the last 3 years. But ever since he had surgery at [place] for carpal tunnel syndrome a week ago he felt an abrupt decline. Some of this was due to a change in medication with Wellbutrin and disruption of sleep. But in the emergency room he was found to have hyponatremia. On January 14 he had a rapid response team event where he was with sudden worsening of mental status, hypotension and chest x-ray that showed mild bilateral pneumonia. When discussed with his , she reports significant aspiration history at home so we wondered if he was aspirating here. He was started on Zosyn January 14. That was transition to Augmentin yesterday. He has respiratory distress with tachypnea and fatigue but that is stable. Right now he is on room air and he is 98 200% for the last 48 hours. (3) Hyponatremia Assessment/Plan: Present on admission, and resolved as of January 14 with IV fluids, and feeding him. (4)dehydration Patient takes 300 mg of torsemide daily at home. On admission creatinine is 1.5. Reviewing the electronic medical record shows him to have a creatinine usually around 1.1. The lowest we have seen is 0.8 in July 2013. He has gradually improved and his creatinine normalized to 0.8 by today. (5)AMS Sudden loss of orientation, responsiveness on January 14. Gradually coming back down to baseline. He is alert, oriented, able to tell me what he wants, needs. He has been actively involved in his own care plan with regards to advance care planning, DO NOT RESUSCITATE status and has agreed to [facility] facility placement for rehab. (6) hypotension Due to dehydration, generalized failure to thrive, and has improved with nutrition and IV fluids (7) History of restrictive cardiomyopathy Conclusion/Plan: Echo study Echo show with mild reduced EF otherwise it is unremarkable. pt has history of restrictive cardiomyopathy. patient does not appear to be in heart failure at this time given his near normal BNP and mild edema. We will hold his home Lasix and spironolactone given the hyponatremia we will gently hydrate him (8) CKD (chronic kidney disease), stage III Conclusion/Plan: / improved creatinine is 1 on today. His renal function is currently at baseline with a creatinine of 1.5. continue monitor his renal function while he is hospitalized. (9) Atrial fibrillation with rapid ventricular response Assessment/Plan: At home he is on sotalol, digoxin, and Toprol. Those have been resumed and dos es adjusted. He used to be in the low 100s and is in the 90s today. No change in medication planned and to continue his Coumadin for anticoagulation.
[2021-01-17] MEDS ORDERED: MIN OIL/DIMETHICON/COCONUT OIL 92 GM TUBE TOP PRN (18:31)
[2021-01-17] MEDS: TAMSULOSIN 0.4 MG CAPSULE PO SCH (21:54)
[2021-01-18 06:52] LABS: BASOPHILS % (AUTO) 0.2 %; HCT - HEMATOCRIT 36.2 % (42.0-52.0); HGB - HEMOGLOBIN 11.8 g/dL (14.0-18.0); LYMPHOCYTES # (AUTO) 0.6 10^3/uL (1.5-3.5); LYMPHOCYTES % (AUTO) 7.1 %; MEAN CORPUSCULAR HEMOGLOBIN 33.3 pg (27.0-31.0); MEAN CORPUSCULAR HGB CONC 32.6 g/dL (32.0-36.0); MEAN CORPUSCULAR VOLUME 102.3 fL (80.0-94.0); MONOCYTES # (AUTO) 0.6 10^3/uL (0.0-1.0); MONOCYTES % (AUTO) 6.1 %; NEUTROPHILS # (AUTO) 7.7 10^3/uL (1.5-6.6); NEUTROPHILS % (AUTO) 85.5 %; PLT - PLATELET COUNT 154 10^3/uL (130-450); RED BLOOD COUNT 3.54 10^6/uL (4.70-6.10); RED CELL DISTRIBUTION WIDTH 15.2 % (12.0-15.0)
[2021-01-18 06:57] LABS: INR 1.5 (0.8-1.2); PT - PROTHROMBIN TIME 15.9 secs (9.9-12.6)
[2021-01-18 06:59] LABS: CALCIUM 9.2 mg/dL (8.5-10.3); CREATININE 0.9 mg/dL (0.6-1.2); POTASSIUM 3.9 mmol/L (3.5-5.0)
[2021-01-18] MEDS ORDERED: SODIUM CHLORIDE 0.9% 500 ML IV ONE (07:47)
--- NOTE | 2021-01-18 07:53 | Discharge Plan ---
"Discharge Plan for SNF / [facility] - Discharge Plan And Transition Orders Problem Reviewed?: Yes Disposition: SNF DC/Xfer Condition: Fair Allergies and Adverse Reactions: Allergies Allergy/AdvReac Type Severity Reaction Status Date / Time Sulfa (Sulfonamide Allergy Intermediate Rash Verified 01/14/21 11:50 Antibiotics) cefepime AdvReac Mild Unknown Verified 01/14/21 11:50 lisinopril AdvReac Unknown Verified 01/14/21 11:50 Health Concerns: Mr. 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 The weakness had suddenly worsened over the last week after having a recent carpal tunnel surgery. On admission he was found to be severely dehydrated, hyponatremic, with moderate generalized weakness. During his stay he was treated for aspiration pneumonia, worked with physical therapy for his weakness, and we opted not to give him his torsemide due to severe dehydration and acute kidney injury. He has now been stabilized but remains a very weak, fragile gentleman. Strong consideration should be made for palliative care. His recent surgery leaves his left forearm and hand very weak and needs focus of use of that limb. Plan of Treatment: 1. for physical deconditioning, simple tasks such as getting up to go to the bathroom resulting in exhaustion and tachypnea. He will work with physical therapy to achieve relative independence with activities of daily living to re turn to home. 2. Complete antibiotics for aspiration pneumonitis. During his stay with you he should be monitored for aspiration and swallowing 3. Hyponatremia waxes and wanes depending on IV fluids. Please check his sodium twice a week. 4. Due to severe dehydration, torsemide has been discontinued. He does have a restrictive cardiomyopathy and it may need to be resumed. Check daily weights and consider resuming some diuretic but not all of the diuretic. 5. A. fib with RVR is sometimes with uncontrolled rate. Sotalol digoxin and Toprol have been adjusted to keep his rate in the 80s. Occasionally he goes to 96 or 99. Care Goals: Return to home. He would like to get enough strength to be able to successfully perform his activities of daily living. is overwhelmed with his care. Once he is stronger he will return to home. At discharge consider referring him for palliative care consultation. Assessment: Patient and understand care goals and will try and follow through - SNF / [facility] Transition Orders Discharge Diagnosis: 1. Physical deconditioning with generalized weakness 2. Aspiration pneumonia 3. Hyponatremia present on admission 4. Dehydration 5. Chronic hypotension 6. Restrictive cardiomyopathy 7. Chronic kidney disease stage III 8. Chronic atrial fibrillation 9. Vivid dream 10. Chronic back pain Medicare Certification Statement: I certify that [facility] care is medically necessary on a continuing basis for any of the conditions for which she/he is receiving care during hospitalization. Notify PCP of admission and forward orders to primary provider for signature. Weight on admission and: Daily Call PCP immediately if weight increases by: 1.134 kg Other Notification Orders: Call PCP immediately if patient develops dyspnea, chest pain/tightness or edema. House Bowel Program: Yes Additional Bowel Program Orders: If no BM after 2 days, nurse may give M.O.M. 30ml PO PRN and/or ducolax Supp 1 AL and/or KELLI 250mg P.O., and/or senna 1-2 tabs PO. On day 3 nurse may give repeat above order until residents constipation is resolved. Annual Influenza Vaccine (between Jun 17 and January 14): Yes Two-step PPD per [facility] [id number] or approved exception documents: Yes Oxygen Orders: O2 by CO prn to keep over 92% Medication Orders: PLEASE REFER TO THE DISCHARGE MEDICATION LIST. Insulin Orders?: No - Medications New Prescriptions: Warfarin [Coumadin] 3 mg PO 1400 #1 tablet allopurinoL [Zyloprim] 100 mg PO DAILY #1 tablet - Diet Type: Geriatric Texture: [facility] soft Liquids: Thin May have monthly special meal: Yes - Therapies | Activity Therapy: Evaluation | Treat if indicated: Speech, PT, OT, Swallowing / ST Rehabilitation Potential: Maximize functional status, Return to independent living Activity: Activity as Tolerated Assistance Devices: Wheelchair, Walker"
[2021-01-18] MEDS: CHOLECALCIFEROL 25 MCG TABLET PO SCH (08:15)
[2021-01-18] MEDS: SACCHAROMYCES BOULARDII 250 MG CAPSULE PO SCH (08:17)
[2021-01-18] MEDS: DULoxetine 20 MG CAPSULE PO SCH (08:17)
[2021-01-18] MEDS: PANTOPRAZOLE 40 MG TABLET PO SCH (08:17)
[2021-01-18] MEDS: AMOX/CLAV 875 MG/125 MG TABLET PO SCH (08:17)
[2021-01-18] MEDS: predniSONE 5 MG TABLET PO SCH (08:20)
[2021-01-18] MEDS: DIGOXIN 125 MCG TABLET PO SCH (08:20)
[2021-01-18] MEDS: METOPROLOL SUCCINATE 25 MG TABLET PO SCH (08:20)
[2021-01-18] MEDS: SODIUM CHLORIDE FLUSH 0.9% 10 ML SYRINGE IVP SCH (08:23)
[2021-01-18] MEDS: SOTALOL 80 MG TABLET PO SCH (08:23)
[2021-01-18 10:43] VITALS: BP 141/80
--- NOTE | 2021-01-18 12:24 | ADVANCE CARE PLANNING NOTE ---
Advance Care Planning - Planning Encounter Date: 01/18/21 Time: 10:15 Purpose: discuss goals for SNF and home Parties in Attendance: patient and hospitalist Decisional Capacity of the Patient: alert, oriented, pain controlled, lucid speech and historian - Encounter Subjective/Patient's Story: He has always had degenerative arthritis that was severe. This resulted in hip replacements, knee replacements, and ankle replacements. Physically he was voicing quite a bit of joint pain. He then had development of restrictive cardiomyopathy probably starting around the age of 65 but did not realize what the diagnosis was until he retired at the age of 69 in 2000. By then he was exhausted, barely able to get through her workday and putting his head down on his desk often. 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 He plans on working until his late 70s because his brain was great, even though his body was failing him. He then developed gout with severe, severe flares. Extensive joint deformities occurred in his fingers, toes, and knees. He went on increasing doses of steroids to control the pain and was also placed on daily allopurinol and colchicine. 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 He ended up developing osteomyelitis by October 2019 and was placed on an antibiotic that he had a severe reaction to. He was hospitalized at [place] in the ICU and almost . The antibiotic caused renal failure and he was days away from dialysis when his kidney slowly recovered. 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 He has never really recovered from that ho spitalization. He acknowledges that his body was already deteriorating but he felt like he had the will to live, and the energy and the intelligence to go with it, to keep ongoing. Once he was hospitalized in October, everything seems to have fallen apart and he has become increasingly fatigued. He is not better, and he states that he is not really depressed. "It is what it is" and there is no point complaining about it. I tell him that he is pretty fatalistic, and he smiles and tells me that his primary care provider said the same thing. He is starting to realize that reduction in his quality of his life is not anything he thought he would have to live through. He had already lived through so much pain with his joint replacements, the gout, that he did not initiate much worse. He is started to lose a tremendous amount of mobility in the last year. Is tired more often than not. Does not have the strength to use his arms and his hands he like to. He was eventually operated on for carpal tunnel and elbow surgery a week ago and he is acutely gone downhill from there as well. Now he can't even use his left arm at the elbow and below. He has daily chronic pain. Daily chronic shortness of breath. Daily exhaustion and orthopnea. Appetite comes and goes. Daily diarrhea. Skin is exceedingly fragile and her bruises easily or tears easily. The last time he felt like he was independent with activities of daily living was in October 2019. Since then he needs a lot of help with simple things such as bathing, getting dressed. He can feed himself but he cannot contribute to making dinner or cleaning up after dinner. Right now they do not have any help at home. His is overwhelmed. She brought him to the hospital when his weakness became so severe that he could not even get out of bed. We found him to be with general deconditioning, hyponatremia, dehydration. While he was in the hospital he developed sudden respiratory failure and we think he aspirated. He is not going to be discharged to correction facility for rehab. He and his started preliminary conversations about what future plans are. He recognizes that she cannot take care of him but they have not really sat down and talked finances, desires, wishes, etc. He feels like he has no function in life anymore because he does not serve a purpose. I gently reminded him that as long as he is "himself" with his [place] intelligence, charm, personality, being around for the people that love him is enough. He does not have to "serve a purpose for them". 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 Treatment to correct electrolytes has been done. All of his diuretics were discontinued because of the prerenal azotemia and dehydration. He is only been maintained on his rate slowing drugs and his Coumadin. Physical therapy has been seeing and evaluating him. They feel he is a candidate for correction facility rehab. Goals of Care: 1. To return to home after correction facility rehab acute care stay. 2. To regain some of the strength to allow himself to accomplish activities of daily living 3. To sit down and talk to his about finances and what the future holds for them so they can start making plans with regards to: -Care providers -Cost of care providers versus correction facility placement -Discussed in depth with his what he considers important in life. At what point would he want to be transition to palliative or comfort measures if he has crossed over that line of not being happy with where he is to the point that he does not want interventions Plan: He will be discharged from this acute episode of care to correction facility rehab. Regain strength to go home. Hopefully avoid further hospitalizations in the near future. Code Status: Do Not Attempt Resuscitation Time spent on advance care plannin
--- NOTE | 2021-01-18 12:32 | DISCHARGE SUMMARY ---
"Discharge Summary Admit Date: 01/12/21 Discharge Date: 01/18/21 Discharging Provider: Dahiana Iverson MD Code Status: Do Not Attempt Resuscitation Condition at Discharge: Fair Discharge Disposition: SNF DC/Xfer - DIAGNOSES Discharge Diagnoses with Status of Each Condition: 1. Hyponatremia 2. Severe physical deconditioning 3. 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 Steroid dependence 5. Restrictive cardiomyopathy 6. Chronic kidney disease III 7. Paroxysmal atrial fibrillation 8. Vivid dreams 9. Exophthalmos 10. Aspiration pneumonitis 11. Hypotension 11. Chronic pain syndrome 12. 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 He tells me that his is concerned that he has become progressively weak since he had surgery last week. He states his weakness has progressed over the last 3 years. He normally ambulates with a walker but will use a cane around the house. He had surgery 1 week ago at [facility] for left carpal tunnel syndrome as well as left olecranon bursitis. He states since that surgery, he has been even weaker than usual. He has been using a wheelchair to get around. He reports no focal deficits just generalized weakness. He denies any headache, change in vision. He reports chronic numbness in his lower extremities due to multiple surgical interventions for both of his ankles due to severe arthritis. He also reports that over the past few days, he has had very vivid dreams. He will wake up thinking they are real and will speak to his about them but she would not understand as he was just dreaming. He reports no auditory or visual hallucinations when he is awake. He was started on Wellbutrin a few weeks ago for depression but stopped this a couple of days ago. He was prescribed oxycodone postoperatively which she has been taking 4 times a day up until 2 days ago. These are 5 mg. He states he has been on hydrocodone in the past for multiple years due to chronic pain from his osteoarthritis but stopped this about a month ago. He reports no prior history of such vivid dreams or hallucinations. He does report he was quite weak after surgery last year for what appears to be gout and possible osteomyelitis. In the emergency department, he was found to be afebrile with a temperature of 36.5 C. His heart rate was in the 100s. Blood pressure is 108/84. He was not tachypneic and saturating well on room air. Labs were significant for sodium of 127. His INR was 1.3. Creatinine was 1.5. CT of the head was unremarkable. Given his hyponatremia and weakness, medicine was consulted for admission. I did discuss goals of care with the patient. We reviewed his POLST form which states that he is a DNR with limited interventions. He states that he would want CPR if he were to have an arrest while he is hospitalized. He would not want CPR if he were found down at home. If there was evidence of neurologic deficits then he would not want to be kept alive on mechanical ventilation. - Past Medical History Cardiovascular: reports: Congestive heart failure, Hypertension, Atrial fibrillation, Other (Restrictive Cardiomyopathy.) Respiratory: reports: Pneumonia, Sleep apnea, CPAP use Neuro: reports: None Endocrine/Autoimmune: reports: None GI: reports: GERD : reports: Renal insuffiency, Other (History of prostate cancer) HEENT: reports: Chronic hearing loss Psych: reports: Depression Musculoskeletal: reports: Osteoarthritis, Osteoporosis, Gout Derm: reports: None MRSA Hx?: No - Past Surgical History Ortho: reports: Hip replacement (Bilateral.), Knee replacement (Left x2.), Amputation (Bilateral fifth digits.), Other (Bilateral ankle replacement.) /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 Head CT is unremarkable for age. Brain parenchymal volume loss and chronic small vessel ischemic changes are seen. 2. Chest x-ray had no initial acute process then he developed bilateral pneumonia and by discharge January 15 x-ray shows resolving bilateral pneumonia 3. Echocardiogram has atrial fibrillation with RVR. Ejection fraction 50 to 55% on the lower limits of normal. Right ventricle in the upper limits of normal. Left atrial and right atrial sizes are normal. Mild aortic valve sclerosis but no stenosis. Moderate secundum atrial septal defect/shunt flow through a PFO or a secundum ASD measuring 13 mm in diameter was seen. - HOSPITAL COURSE Hospital Course: After evaluation in the emergency room the patient was found to have hyponatremia to 127, 1+ pitting edema but very dry oral mucosa. He did not appear to be in heart failure with his history of restrictive cardiomyopathy. Chronic kidney disease appears stable, and his paroxysmal atrial fibrillation history was rate controlled with sinus rhythm. He was severely, severely physically deconditioned with joint deformities. Lethargic. And appeared to be with some element of steroid side effects of cushingoid appearance. Skin was fragile, easily bruised. Severe exophathalmus of the eyes with muddy injected sclera. Treatment consisted of IV fluids, assessing his nutrition and working with phys ical therapy. On the morning of January 14 there was a rapid response called to his room where he had sudden loss of consciousness followed by a prolonged state of altered mental status. He was confused, didn't know where he was, appeared to be in respiratory distress. Evaluation showed him to have possible aspiration pneumonitis by chest x-ray. And he was treated with antibiotics for that and slowly recovered his mentation. By the time of discharge she is very tired, very fatigued, but alert and oriented. Lucid speech, lucid historian. He is not able to return home because he is not able to complete his activities of daily living. Physical therapy evaluated and feels he is a candidate for SNF rehab to increase his strength. His goal is to get back to being able to dress himself, feed himself, bathe himself. He has lost a lot of ground over the last 2 years and is starting to think in terms of long-term care and what that would look like. Please see advance care planning conversation done on day of discharge. We have maximized his medical problems as much as possible. He is no longer having vivid dreams. Hypoxia with aspiration resolved. Blood pressure is still borderline low and his steroids were slightly increased. He uses steroids for pain management. We did not resume any of his diuretics while he was in the hospital. He was on metolazone, torsemide, and spironolactone when he was admitted. He was also on Imdur 60 mg a day. Those were not continued in the hospital due to his blood pressure and his apparent dehydration. At discharge those were not continued but I am putting in the note to the [facility] facility that he may need 1 or any of these reintroduced. Glucose is elevated with our extra dose of steroids. He was 206 on the day of discharge. But I am sending the patient out on his usual dose of steroids were he does not need treatment for his glucose. As I dictate this discharge summary I am seeing the report. I will have to check with the hospitalist who is taking care of him if cardiology was consulted on the 13 mm right to left shunt. In any case, that will need to be followed up in the outpatient setting with a cardiology opinion. He is completing antibiotics for his aspiration. His Betapace, metoprolol were resumed. I have cut back his allopurinol from 200 mg a day to 100 mg a day. He is having daily diarrhea so I have stopped his colchicine. Coumadin has been adjusted from 2.5 mg every day except Tuesday to Coumadin 3 mg daily. At discharge his temperature is 34.2, heart rate is 96, blood pressure 141/80, respirations 20 and he is 98% on room air. He is 5 foot 8 inches tall and weighs 78 kg. Stocky elderly gentleman with a faraway gaze through a very large protuberant exophthalmos. Sclera is muddy and injected. Pupils are reactive. Slightly slack face through either sadness or depression or just fatigue. Speech is normal and lucid and slow. Neck is supple with shotty adenopathy and no JVD. Diminished breath sounds at the bases with slight tachypnea. I ask him if he always breathes using his abdominal wall muscles. He has arms crossed across his chest and I point out that his arms rise to quite a bit with 2 standby assist. He is not unsteady on his feet. He follows commands well. Greater than 30 minutes was spent coordinating discharge. I also spent another 35 minutes doing advance care planning with him to ask what he was going to do after [facility] facility rehab. - ALLERGIES Allergies/Adverse Reactions: Allergies Allergy/AdvReac Type Severity Reaction Status Date / Time Sulfa (Sulfonamide Allergy Intermediate Rash Verified 01/14/21 11:50 Antibiotics) cefepime AdvReac Mild Unknown Verified 01/14/21 11:50 lisinopril AdvReac Unknown Verified 01/14/21 11:50 - MEDICATIONS Home Medications: Ambulatory Orders Medication Instructions Recorded Confirmed Loperamide [Imodium] 2 mg PO PRN PRN 01/10/20 01/13/21 predniSONE [Prednisone] 5 mg PO DAILY 01/10/20 01/13/21 Calcium Citrate 1,000 mg PO DAILY 05/22/20 01/13/21 Digoxin 62.5 mcg PO DAILY 05/22/20 01/13/21 Tamsulosin HCl [Flomax] 0.4 mg PO DAILY 05/22/20 01/13/21 polyethylene glycoL 3350 [Miralax] 17 g PO DAILY PRN 05/22/20 01/13/21 Cholecalciferol (Vitamin D3) 2,000 unit PO DAILY 01/13/21 01/13/21 [Vitamin D3] DULoxetine [Cymbalta] 30 mg PO DAILY 01/13/21 01/13/21 Promethazine [Phenergan] 25 mg PO Q4H PRN 01/13/21 01/13/21 Acetaminophen [Tylenol] 650 mg PO Q4HR PRN tablet 01/18/21 Amox/Clav 875/125 [Augmentin 1 tab PO BID #8 tablet 01/18/21 875/125 Tab] Cholecalciferol [Vitamin D3] 50 mcg PO DAILY tablet 01/18/21 Metoprolol Succinate [Toprol Xl] 25 mg PO DAILY #0 tab 01/18/21 01/13/21 Min Oil/Dimeth/Coconut Oil Crm 1 applic TOP PRN PRN tu 01/18/21 [Cavilon] Pantoprazole [Protonix] 40 mg PO DAILY PRN #0 tab 01/18/21 01/13/21 Saccharomyces Boulardii [Florastor] 250 mg PO BIDWM 8 Days #16 cap 01/18/21 Sotalol HCl [Betapace] 80 mg PO DAILY #0 tab 01/18/21 01/13/21 Sotalol [Betapace] 40 mg PO QPM #0 tab 01/18/21 01/13/21 Warfarin [Coumadin] 3 mg PO 1400 #1 tablet 01/18/21 allopurinoL [Zyloprim] 100 mg PO DAILY #1 tablet 01/18/21 - LABS Result Diagrams: 01/18/21 06:40 01/18/21 06:40 - SEPSIS Current Stage of Sepsis: Ruled out"
--- OUTSIDE RECORDS SUMMARY | 2021-01-20 21:48 | EXTERNAL MEDICAL SUMMARY RPT | Continuity of Care Document ---
:1940 Demographics Phone Unavailable Preferred Language Unknown Marital Status Unknown Taoist Affiliation Unknown Race Unknown Ethnic Group Unknown Author Organization [facility] Address [address] [place] [address] Phone Social History date description facility [phone]
== END 2021-01-18 11:15 | DRG 640 ==
LOC: EDUNIT# → ED 16:03 → MS2 18:05
PROVIDERS: ADMIT Internal Medicine; ATTEND Specialist
DX: E87.1 Hypo-osmolality and hyponatremia (principal); R44.0 Auditory hallucinations; J69.0 Pneumonitis due to inhalation of food and vomit; F19.20 Other psychoactive substance dependence, uncomplicated; I42.5 Other restrictive cardiomyopathy; I13.0 Hypertensive heart and chronic kidney disease with heart failure and stage 1 through stage 4 chronic kidney disease, or unspecified chronic kidney disease; Q21.1 Atrial septal defect; I25.10 Atherosclerotic heart disease of native coronary artery without angina pectoris; E86.0 Dehydration; M21.90 Unspecified acquired deformity of unspecified limb; Z79.52 Long term (current) use of systemic steroids; M10.9 Gout, unspecified; Z20.822 Contact with and (suspected) exposure to COVID-19; N18.30 Chronic kidney disease, stage 3 unspecified; I50.9 Heart failure, unspecified; I48.0 Paroxysmal atrial fibrillation; Z79.01 Long term (current) use of anticoagulants; Z66 Do not resuscitate; G89.4 Chronic pain syndrome; M89.49 Other hypertrophic osteoarthropathy, multiple sites; M1A.9XX1 Chronic gout, unspecified, with tophus (tophi); H05.20 Unspecified exophthalmos; R53.1 Weakness; G47.30 Sleep apnea, unspecified; Z85.46 Personal history of malignant neoplasm of prostate; H91.93 Unspecified hearing loss, bilateral; Z96.643 Presence of artificial hip joint, bilateral; Z96.652 Presence of left artificial knee joint; R60.9 Edema, unspecified; R41.82 Altered mental status, unspecified; R06.03 Acute respiratory distress; R19.7 Diarrhea, unspecified; Z87.891 Personal history of nicotine dependence; I95.1 Orthostatic hypotension; R63.0 Anorexia
CPT/HCPCS: 36415; 36600; 70450; 71045; 80048; 80053; 80162; 80306; 81003; 82436; 82803; 83605; 83735; 83880; 84300; 84443; 84484; 85025; 85610; 87631; 93005; 93306; 97110; 97162; 97166; 97530; 99283; 99285; A6250; A9270; J7512; 0202U; 81001; 84295; 87086